=== PATIENT | male | born 1970 | race Caucasian/White ===

== ENCOUNTER → 2017-04-19 | Outpatient (CLI) | payer OTHER ==
[~2017-04-19] MED LIST: ASPI325T39 PO; FLM4 PO
--- NOTE | 2017-04-19 14:21 | DIAGNOSTIC IMAGING REPORT ---
ULTRASOUND RIGHT LOWER EXTREMITY VENOUS CLINICAL HISTORY: Right leg pain and swelling. COMPARISON STUDY: No priors. TECHNIQUE: Real-time, grayscale, and color Doppler sonography of the deep veins of the right lower extremity was performed from the inguinal crease to the calf. Compression and augmentation were utilized. FINDINGS: There is no sonographic evidence of deep venous thrombosis identified in the right lower extremity. The common femoral, superficial femoral, and popliteal veins are patent and normally compressible. The greater saphenous vein and the profunda femoris vein at the junction with the common femoral vein are clear. The visualized calf veins are patent. Soft tissue edema is noted in the right calf. IMPRESSION: 1. There is no sonographic evidence of deep venous thrombosis identified in the right lower extremity. 2. Soft tissue edema is noted in the right calf. Electronically signed by: Yong Le M.D. 04/19/2017 2:20 PM Dictated Date/Time: 04/19/2017 2:10 PM
== END | disposition home or self-care (01) ==
LOC: C.ULTR 13:36
PROVIDERS: ATTEND Internal Medicine
DX: R60.0 Localized edema (principal)

== ENCOUNTER 2019-09-02 12:56 | Inpatient (IN) ==
[2019-09-02] MEDS ORDERED: IBUPROFEN 600 MG TAB PO STA (13:58)
--- NOTE | 2019-09-02 14:05 | Emergency Department Note ---
Entered by Camryn Stern acting as a scribe for Ziyad Green MD ED Provider Note CHIEF COMPLAINT: SOB HISTORY OF PRESENT ILLNESS: The patient is a 49 year old male who presents to the Emergency Room with complaints of SOB, MUÑIZ, fever. This started 2 days ago and is worsening. He was traveling with family to [place] and his nephew was sick with bronchitis. The patient also notes the following associated symptoms, myalgias, cough, chest tightness, rhinorrhea, mild headache. The patient has Tylenol relieving factors. Current pain is rated as 2/10. Feels like previous pneumonia. Pt denies LOC, chills, diaphoresis, visual changes, neck pain, breathing difficulties, nausea, vomiting, abdominal pain, back pain, melena, hematochezia, urinary symptoms, numbness, weakness, lymphadenopathy, rash, or other complaints. REVIEW OF SYSTEMS: See HPI for pertinent positives and negatives. A total of ten systems were reviewed and were otherwise negative. PMHx/PSHx: Pneumonia SOCIAL HISTORY: Patient lives at home. , employed. PHYSICAL EXAM: GENERAL: Awake, alert, mildly ill-appearing, in no distress HENT: Normocephalic, atraumatic. Oropharynx unremarkable. EYES: PERRL. Normal conjunctiva. Sclera non-icteric. NECK: Inspection normal. Non-tender. Supple. No nuchal rigidity. FROM. No masses. RESPIRATORY: Mild wheeze on the right. No rales. Normal respiratory effort. CARDIAC: Tachycardic rate. Normal rhythm. No murmurs. No rubs. Extremities warm and well perfused. Pulses equal. No JVD. GI: Soft, non-distended. No tenderness to palpation. No rebound or guarding. No masses. RECTAL: Deferred. MUSCULOSKELETAL: Atraumatic. Chest examination reveals no tenderness. The back is symmetrical on inspection without obvious abnormality. There is no CVA tenderness to palpation. No joint edema. LOWER EXTREMITIES: Calves are equal size bilaterally and non-tender. No edema. No discoloration. NEURO: Normal sensorium. No sensory or motor deficits noted. SKIN: No rash or jaundice noted. EMERGENCY DEPARTMENT COURSE: 1351: The patient was evaluated in room B8, and a complete history and physical examination were performed. 1530: I had a long discussion with the patient. The patient informed me that he drank a moderate amount of alcohol, this weekend, on Sunday and Sunday. 1533: I reviewed the patient's case with Dr. Lee, [facility] Hospitalist. She will evaluate the patient for further management. MEDICAL DECISION MAKING: Continuous Cardiac Monitoring: An order was placed for continuous cardiac monitoring. The monitor shows a rate of 104 with an A Fib w/ RVR rhythm. B8 Prior records/ancillary studies reviewed. Triage Nursing notes reviewed and agree them. Additional history obtained from the patient's . The patient's history was concerning for fever and shortness of breath Differential diagnosis: Etiologies such as otitis, pharyngitis, pneumonia, influenza,meningitis, urinary tract infection, sepsis, bacteremia, viral syndrome, Covid- 19 as well as others were entertained. Physical examination: As above. The patient was not hypoxic though he was tachycardic. ER treatment provided: Oral Motrin On reassessment the patient was still feeling feverish. Repeat temperature indicated his fever increased. Oral Tylenol IV Lasix IV Lopressor Diagnostics interpreted by me: ECG: Consistent with new onset atrial fibrillation. The labs revealed an unremarkable CBC. Chemistry panel revealed no significant electrolyte issues. The patient's BNP is minimally elevated. Troponin negative. Flu testing negative. PCR flu testing pending. Imaging studies: Chest x-ray shows mild congestive change without infiltrate. Patient appears to have a febrile illness, bronchitis-like symptoms, and new onset A. fib. He did admit to drinking some alcohol this weekend which could contribute to the new onset A. fib. Flu testing was negative. Chest x-ray did not show pneumonia. Given the constellation of symptoms with the rapid A. fib and fever further management in the hospital is necessary. Consultation: A consultation was placed with internal medicine. The case was discussed and diagnostics were reviewed. The patient was evaluated in the ER for further treatment. We did discuss the patient's travel history and fever. He has no obvious contact with coronavirus patients. He is currently isolated. IMPRESSION: new onset A Fib, SOB PLAN: Admitted as inpatient. The scribe's documentation has been prepared under my direction and personally reviewed by me in its entirety. I confirm that the note above accurately reflects all work, treatment, procedures, and medical decision making performed by me. Impression & Plan New onset a-fib, SOB (shortness of breath) Past Med/Surg History Social History (Updated 07/14/19 @ 17:03 by Ximena Rodriguez) Preferred Language: [place] Communication Ability: Effective Visual Impairment: No Limitations Hearing Ability: Normal Field Professional Required: No Beliefs That Will Affect Care: None marital status: Current Living Situation: Alone current occupational status: employed Other Information That Helps Us Care for You: No Feels Safe at Home: Yes Safety Concerns: Feels Safe At This Time Smoking Status: Never smoker Hx Alcohol Use: Yes Alcohol type: beer and hard liquor Hx Substance Use: No Childhood Exposure to Second-Hand Smoke: Yes Dental Care, Regularly: Yes Physical Activity Frequency: 1-2 Times per Week Seatbelt Use: always Sunscreen Use: Yes Results & Data Vital Signs Vital Signs - 24 hr 09/02/19 13:01 09/02/19 14:13 09/02/19 14:50 Temperature 37.9 C H Temperature Source Oral Pulse Rate 118 H Pulse Rate [Finger] 104 H Respiratory Rate 22 22 Respiratory Effort / Characteristics Spontaneous Respiratory Depth Normal Blood Pressure 172/112 H Blood Pressure [Right Arm] 127/94 Blood Pressure Mean 132 Blood Pressure Mean [Right Arm] 105 Pulse Oximetry 93 93 94 Oxygen Delivery Method Room Air Room Air Other Room Air Sepsis Recent Fever Within 48 Hours No Sepsis Action Taken by Nursing No Action Required 09/02/19 14:55 09/02/19 15:17 09/02/19 15:30 Temperature Temperature Source Pulse Rate 115 H 112 H 116 H Pulse Rate [Finger] Respiratory Rate 23 21 15 Respiratory Effort / Characteristics Respiratory Depth Blood Pressure 127/94 Blood Pressure [Right Arm] Blood Pressure Mean 109 Blood Pressure Mean [Right Arm] Pulse Oximetry Oxygen Delivery Method Sepsis Recent Fever Within 48 Hours Sepsis Action Taken by Nursing 09/02/19 15:56 09/02/19 16:00 09/02/19 16:30 Temperature 38.5 C H Temperature Source Oral Pulse Rate 105 H 104 H Pulse Rate [Finger] Respiratory Rate 23 18 Respiratory Effort / Characteristics Respiratory Depth Blood Pressure Blood Pressure [Right Arm] Blood Pressure Mean Blood Pressure Mean [Right Arm] Pulse Oximetry Oxygen Delivery Method Sepsis Recent Fever Within 48 Hours Sepsis Action Taken by Nursing 09/02/19 17:30 Temperature Temperature Source Pulse Rate Pulse Rate [Finger] 110 H Respiratory Rate 24 Respiratory Effort / Characteristics Respiratory Depth Blood Pressure Blood Pressure [Right Arm] 157/88 H Blood Pressure Mean Blood Pressure Mean [Right Arm] 111 Pulse Oximetry 92 Oxygen Delivery Method Room Air Sepsis Recent Fever Within 48 Hours Sepsis Action Taken by Retirement Medications Current Medication List: was personally reviewed by me Laboratory Data Attestation: I reviewed the patient's lab results. Result diagrams: 09/02/19 14:15 09/02/19 14:15 Lab Results 09/02/19 09/02/19 09/02/19 Range/Units 14:15 14:15 14:15 WBC 6.11 (4.8-10.8) K/uL RBC 4.42 L (4.7-6.1) M/uL Hgb 14.1 (14.0-18.0) g/dL Hct 42.2 (42-52) % MCV 95.5 (80-100) fL MCH 31.9 (25-34) pg MCHC 33.4 (32-36) g/dL RDW Std Deviation 47.5 H (36.4-46.3) fL RDW Coeff of Romario 13.6 (11.5-14.5) % Plt Count 207 (130-400) K/uL MPV 10.1 (7.4-10.4) fL Immature Gran % (Auto) 0.2 % Neut % (Auto) 81.6 % Lymph % (Auto) 11.1 % Davie % (Auto) 6.4 % Eos % (Auto) 0.2 % Baso % (Auto) 0.5 % Immature Gran # (Auto) 0.01 (0.00-0.02) K/uL Neut # (Auto) 4.99 (1.4-6.5) K/uL Lymph # (Auto) 0.68 L (1.2-3.4) K/uL Davie # (Auto) 0.39 (0.11-0.59) K/uL Eos # (Auto) 0.01 (0-0.5) K/uL Baso # (Auto) 0.03 (0-0.2) K/uL PT (9.0-12.0) Seconds INR (0.9-1.1) APTT (21.0-31.0) Seconds PTT Ratio Sodium 136 (136-145) mmol/L Potassium 3.9 (3.5-5.1) mmol/L Chloride 103 (98-107) mmol/L Carbon Dioxide 28 (21-32) mmol/L Anion Gap 5.0 (3-11) BUN 13 (7-18) mg/dl Creatinine 1.04 (0.6-1.4) mg/dl Est Cr Clr Drug Dosing Not Reportable Est GFR ( Amer) 95.9 Est GFR (Non-Af Amer) 82.7 BUN/Creatinine Ratio 12.5 (10-20) Glucose 107 H (70-99) mg/dl Lactate (0.4-2.0) mmol/L Calcium 8.5 (8.5-10.1) mg/dl Magnesium 1.8 (1.8-2.4) mg/dl Total Bilirubin 1.0 (0.2-1) mg/dl AST 32 (15-37) U/L ALT 60 (12-78) U/L Alkaline Phosphatase 71 (45-117) U/L Lactate Dehydrogenase (87-241) U/L Troponin I < 0.015 (0-0.045) ng/ml NT-Pro-B Natriuret Pep 1337 H (0-900) pg/ml Total Protein 7.8 (6.4-8.2) gm/dl Albumin 3.5 (3.4-5.0) gm/dl Globulin 4.3 H (2.5-4.0) gm/dl Albumin/Globulin Ratio 0.8 L (0.9-2) Influenza Type A Ag Neg for Influ A (Neg) Influenza Type B Ag Neg for Influ B (Neg) 09/02/19 09/02/19 09/02/19 Range/Units 14:15 14:15 17:03 WBC (4.8-10.8) K/uL RBC (4.7-6.1) M/uL Hgb (14.0-18.0) g/dL Hct (42-52) % MCV (80-100) fL MCH (25-34) pg MCHC (32-36) g/dL RDW Std Deviation (36.4-46.3) fL RDW Coeff of Romario (11.5-14.5) % Plt Count (130-400) K/uL MPV (7.4-10.4) fL Immature Gran % (Auto) % Neut % (Auto) % Lymph % (Auto) % Davie % (Auto) % Eos % (Auto) % Baso % (Auto) % Immature Gran # (Auto) (0.00-0.02) K/uL Neut # (Auto) (1.4-6.5) K/uL Lymph # (Auto) (1.2-3.4) K/uL [place]ie # (Auto) (0.11-0.59) K/uL Eos # (Auto) (0-0.5) K/uL Baso # (Auto) (0-0.2) K/uL PT 11.4 (9.0-12.0) Seconds INR 1.1 (0.9-1.1) APTT 29.1 (21.0-31.0) Seconds PTT Ratio 1.0 Sodium (136-145) mmol/L Potassium (3.5-5.1) mmol/L Chloride (98-107) mmol/L Carbon Dioxide (21-32) mmol/L Anion Gap (3-11) BUN (7-18) mg/dl Creatinine (0.6-1.4) mg/dl Est Cr Clr Drug Dosing Est GFR ( Amer) Est GFR (Non-Af Amer) BUN/Creatinine Ratio (10-20) Glucose (70-99) mg/dl Lactate 1.5 (0.4-2.0) mmol/L Calcium (8.5-10.1) mg/dl Magnesium (1.8-2.4) mg/dl Total Bilirubin (0.2-1) mg/dl AST (15-37) U/L ALT (12-78) U/L Alkaline Phosphatase (45-117) U/L Lactate Dehydrogenase 202 (87-241) U/L Troponin I (0-0.045) ng/ml NT-Pro-B Natriuret Pep (0-900) pg/ml Total Protein (6.4-8.2) gm/dl Albumin (3.4-5.0) gm/dl Globulin (2.5-4.0) gm/dl Albumin/Globulin Ratio (0.9-2) Influenza Type A Ag (Neg) Influenza Type B Ag (Neg) Administered Medications Ipratropium Melba (Atrovent 0.02% 0.5mg/2.5ml) 0.5 mg INH Q6R [facility] Stop: 10/02/19 18:59 Last Admin: 09/02/19 20:16 Dose: 0.5 mg Documented by: [id number] Levalbuterol HCl (Xopenex 0.63 Mg/3 Ml Neb) 0.63 mg NEB Q6R [facility] Stop: 10/02/19 18:59 Last Admin: 09/02/19 20:16 Dose: 0.63 mg Documented by: [id number] Discontinued Medications Acetaminophen (Tylenol) 1,000 mg PO NOW STA Stop: 09/02/19 15:28 Last Admin: 09/02/19 15:47 Dose: 1,000 mg Documented by: [id number] Furosemide (Lasix) 20 mg IV NOW STA Stop: 09/02/19 15:30 Last Admin: 09/02/19 15:47 Dose: 20 mg Documented by: [id number] Ibuprofen (Motrin) 600 mg PO NOW STA Stop: 09/02/19 13:59 Last Admin: 09/02/19 14:57 Dose: 600 mg Documented by: [id number] Ioversol (Optiray 320 125ml) 120 ml IV ONCE PRN PRN Reason: Interaction Checking Stop: 09/06/19 16:54 Last Admin: 09/02/19 16:55 Dose: 120 ml Documented by: [id number] Metoprolol Tartrate (Lopressor) 2.5 mg IV NOW STA Stop: 09/02/19 15:28 Last Admin: 09/02/19 15:47 Dose: 2.5 mg Documented by: [id number] Imaging Data Radiologist's Impression: Radiology results as stated below per my review and the radiologist's interpretation: XR chest 1V portable CLINICAL HISTORY: FEVER dyspnea COMPARISON STUDY: 03/07/2006 FINDINGS: Moderate cardiomegaly. Increased prominence of pulmonary vasculature. Diaphragms are smooth. IMPRESSION: Moderate cardiomegaly. Pulmonary vascular congestion versus mild congestive failure ACT 112: Negative or not required by law. The above report was generated using voice recognition software. It may contain grammatical, syntax or spelling errors. Electronically signed by: Deangelo Fang M.D. 09/02/2019 2:30 PM ECG Data Attestation: I personally reviewed and interpreted this ECG as follows: Indication: + SOB/dyspnea Rate (beats per minute): 107 Rhythm: atrial fibrillation (w/ RVR) ECG Intervals/blocks: + Incomplete right bundle branch block and + Normal QRS ECG [place]: + Normal ECG ST segments: no ST depression and no ST elevation Blood Pressure Blood Pressure Findings: Elevated blood pressure Blood Pressure Disposition: further management by hospitalist Discharge Plan Visit Data *Final* Discharge Date/Time: 09/02/19 18:32 Chief Complaint: Shortness of Breath/Dyspnea Stated Complaint: SOB, FEVER ED Provider: Ziyad Green Discharge Problem: New onset a-fib, SOB (shortness of breath) Patient Disposition: Admitted As Inpatient Discharge Instructions Interventions: ED Discharge Assessment Last Done: 09/02/19 18:32 The scribe's documentation has been prepared under my direction and personally reviewed by me in its entirety. I confirm that the note above accurately reflects all work, treatment, procedures, and medical decision making performed by me.
[2019-09-02 14:24] LABS: Basophils # (auto) 0.03 K/uL (0-0.2); Basophils % (auto) 0.5 %; Eosinophils # (auto) 0.01 K/uL (0-0.5); Eosinophils % (auto) 0.2 %; Hematocrit (blood only) 42.2 % (42-52); Hemoglobin 14.1 g/dL (14.0-18.0); Immature Granulocytes # (auto) 0.01 K/uL (0.00-0.02); Immature Granulocytes % (auto) 0.2 %; Lymphocytes # (auto) 0.68 K/uL (1.2-3.4); Lymphocytes % (auto) 11.1 %; Mean Corpuscular Hemoglobin 31.9 pg (25-34); Mean Corpuscular Hgb Conc 33.4 g/dL (32-36); Mean Corpuscular Volume 95.5 fL (80-100); Mean Platelet Volume 10.1 fL (7.4-10.4); Monocytes # (auto) 0.39 K/uL (0.11-0.59); Monocytes % (auto) 6.4 %; Neutrophils # (auto) 4.99 K/uL (1.4-6.5); Neutrophils % (auto) 81.6 %; Platelet Count 207 K/uL (130-400); RDW Coefficient of Variation 13.6 % (11.5-14.5); RDW Standard Deviation 47.5 fL (36.4-46.3); Red Blood Count 4.42 M/uL (4.7-6.1); White Blood Count 6.11 K/uL (4.8-10.8)
--- NOTE | 2019-09-02 14:31 | XRay Report ---
XR chest 1V portable CLINICAL HISTORY: FEVER dyspnea COMPARISON STUDY: 03/07/2006 FINDINGS: Moderate cardiomegaly. Increased prominence of pulmonary vasculature. Diaphragms are smooth . IMPRESSION: Moderate cardiomegaly. Pulmonary vascular congestion versus mild congestive failure ACT 112: Negative or not required by law. The above report was generated using voice recognition software. It may contain grammatical, syntax or spelling errors. Electronically signed by: Deangelo Fang M.D. 09/02/2019 2:30 PM
[2019-09-02 14:41] LABS: Alanine Aminotransferase 60 U/L (12-78); Albumin Level 3.5 gm/dl (3.4-5.0); Aspartate Aminotransferase 32 U/L (15-37); BUN Creatinine Ratio 12.5 (10-20); Blood Urea Nitrogen 13 mg/dl (7-18); Calcium 8.5 mg/dl (8.5-10.1); Carbon Dioxide 28 mmol/L (21-32); Chloride 103 mmol/L (98-107); Est GFR (African American) 95.9; Est GFR (Non-African American) 82.7; Glucose 107 mg/dl (70-99); Potassium 3.9 mmol/L (3.5-5.1); Sodium 136 mmol/L (136-145)
[2019-09-02 14:46] LABS: Albumin Globulin Ratio 0.8 (0.9-2); Alkaline Phosphatase 71 U/L (45-117); Globulin 4.3 gm/dl (2.5-4.0); Total Protein 7.8 gm/dl (6.4-8.2); Troponin I < 0.015 ng/ml (0-0.045)
[2019-09-02 15:20] LABS: NT Pro B Type Natriuretic Pept 1337 pg/ml (0-900)
[2019-09-02] MEDS ORDERED: ACETAMINOPHEN 500 MG TAB PO STA (15:27)
[2019-09-02] MEDS ORDERED: METOPROLOL TARTRATE 1 MG/ML VIAL IV STA (15:27)
[2019-09-02] MEDS ORDERED: FUROSEMIDE 40 MG/4 ML VIAL IV STA ×2 (15:29→18:59)
[2019-09-02 15:39] LABS: Magnesium 1.8 mg/dl (1.8-2.4)
--- NOTE | 2019-09-02 15:39 | Electrocardiogram Report ---
Test Reason : Blood Pressure : / mmHG Vent. Rate : 107 BPM Atrial Rate : 117 BPM P-R Int : 000 ms QRS Dur : 094 ms QT Int : 332 ms P-R-T Axes : 000 038 015 degrees QTc Int : 443 ms Atrial fibrillation with rapid ventricular response Incomplete right bundle branch block Abnormal ECG When compared with ECG of 27-APR-1993 03:53, Atrial fibrillation has replaced Sinus rhythm Incomplete right bundle branch block is now Present Confirmed by Fran Santo ([id number]) on 09/02/2019 3:38:54 PM Referred By: REFERRED SELF Confirmed By:Fran Santo
[2019-09-02] MEDS ORDERED: OPTIRAY 320 125ml IV PRN (16:55)
[2019-09-02 16:58] LABS: INR 1.1 (0.9-1.1); Partial Thromboplastin Time 29.1 Seconds (21.0-31.0); Prothrombin Time 11.4 Seconds (9.0-12.0)
--- NOTE | 2019-09-02 17:08 | CT Scan Report ---
CT angio chest PE protocol CLINICAL HISTORY: 49 years-old Male presenting with shortness of breath, flulike symptoms. TECHNIQUE: Multidetector CT angiography of the chest was performed after administration of intravenou s contrast. 3-D volumetric and/or maximum intensity projection (MIP) images were subsequently reconst ructed for review. IV contrast: 120 mL of Optiray 320. One or more dose lowering techniques were used consistent with the principles of ALARA (as low as reasonably achievable), including automatic expos ure control, mA or kV adjustment to individual patient size, and/or use of iterative reconstruction. COMPARISON: None. CT DOSE (mGy.cm): The estimated cumulative dose is 1144.28 mGy.cm. FINDINGS: Clinical Lab Assistant topogram: Chest x-ray performed earlier today. Image quality is mildly degraded by patient body habitus limiting diagnostic sensitivity to a mild de gree. Pulmonary vasculature: The study is suboptimal for the assessment of the pulmonary vascular tree secondary to respiratory mo tion artifact. Allowing for limited image quality, no central filling defect to suggest pulmonary emb olus. Main pulmonary artery mildly enlarged measuring 3.5 cm in diameter. No flattening of the interv entricular septum. No intracardiac filling defect. No reflux of contrast into the hepatic veins. Remaining chest: Soft tissues: Normal thyroid. Fluffy appearing soft tissue density in the anterior mediastinum may moya ggest residual thymus. Scattered subcentimeter mediastinal lymph nodes, nonspecific and likely reacti ve. Normal aorta. Normal heart size. No pericardial or pleural effusion. Hepatic steatosis. Lungs and airways: No pneumothorax. Diffuse bronchial wall thickening. Peribronchovascular consolidat ion in the posterior segment of the right upper lobe. Limited scattered nodular groundglass opacities in other regions of the right upper lobe. Lesser degree of peribronchovascular consolidation in the medial basal right lower lobe. Respiratory motion artifact limits evaluation of the lung bases. Minim al bibasilar atelectasis suspected. Pulmonary arteries are not significantly enlarged relative to adj acent bronchi. No interlobular septal thickening. Musculoskeletal: Degenerative changes of the spine. IMPRESSION: 1. Allowing for suboptimal image quality, no evidence of pulmonary embolus. 2. Peribronchovascular consolidation in the right upper lobe and to lesser extent the right lower lo be. Findings favor multifocal pneumonia with an atypical infectious etiology. 3. Suspected residual comment thymic tissue. Thymic hyperplasia not excluded. ACT 112: Negative or not required by law. Electronically signed by: Caden Diaz M.D. 09/02/2019 5:06 PM
[2019-09-02] MEDS ORDERED: ALUMINUM/MAGNESIUM SUSP 30 ML UDC PO PRN (18:59)
[2019-09-02] MEDS ORDERED: POLYETHYLENE (MIRALAX) 17 GM PACK PO PRN (18:59)
[2019-09-02] MEDS ORDERED: MAGNESIUM HYDROXIDE SUSP 30 ML UDC PO PRN (18:59)
[2019-09-02] MEDS ORDERED: GUAIFENESIN/CODEINE 200MG/20MG 10ML UDC PO PRN (18:59)
[2019-09-02] MEDS ORDERED: [UNRECOGNIZED DRUG - OTHER] PO SCH (18:59)
[2019-09-02] MEDS ORDERED: XOPENEX/ATROVENT 0.63mg/0.5MG NEB COMBO NEB SCH (19:00)
[2019-09-02] MEDS ORDERED: PATIENT'S WEIGHT NEEDED SCH (20:00)
[2019-09-02] MEDS: IPRATROPIUM BROMIDE NEB SOLN 0.02% 2.5 ML VIAL INH SCH (20:16)
[2019-09-02] MEDS: LEVALBUTEROL HCL 0.63 MG/3 ML NEB NEB SCH (20:16)
[2019-09-02] MEDS: DOXYCYCLINE HYCLATE 100 MG in DEXTROSE 5% 100 ML IV SCH (20:50)
[2019-09-02] MEDS: cefTRIAXone SODIUM 2,000 MG in DEXTROSE 5% 50 ML IV SCH (20:50)
[2019-09-02] MEDS ORDERED: ENOXAPARIN INJ 40 MG/0.4 ML SYR SQ SCH (21:00)
--- NOTE | 2019-09-02 21:34 | History & Physical Report ---
Date of Service September 02, 2019 Assessment & Plan (1) Pneumonia: Admit to PCU on telemetry, Vital signs every 4 hours, Monitor electrolytes and replenish, Procalcitonin pending, Started empirically ceftriaxone 2 g IV and doxycycline 100 mg IV twice daily for presumptive bacterial pneumonia, Blood culture pending, If more sets suspected that viral pneumonia is probable culprit would stop antibiotics and continue symptomatic relief. Ashvin was seen 10 mils p.o. every 6 hours as needed, Ipratropium/Xopenex inh every 6 hours, DVT prophylaxis Lovenox-patient was started on Lovenox for A. fib's 40 mg subcu twice daily. Monitor PTT, switched to oral anticoagulation in a.m. depending on patient weight Full code Present on Admission?: Yes (2) New onset a-fib: New onset of A. fib's with RVR, rate controlled. Given metoprolol in the ER and continued metoprolol tartrate 25 mg twice daily. Eventually will switch to metoprolol succinate. TTE pending Consult cardiology, Switch to Lovenox 40 mg subacute twice daily to oral anticoagulation depending on patient weight. Present on Admission?: Yes (3) Morbid obesity: Patient advised to lose weight, engage in life style changes, control eating habits and exercises. Present on Admission?: Yes (4) Obstructive sleep apnea hypopnea, severe: Patient has CPAP at home which is on automatic setting. Setting while in the hospital will start with 15 and RR 10-12, and further manage per respiratory therapy Present on Admission?: Yes (5) Hypertension: Patient had poorly controlled blood pressure in the ER, could be because he was taking at home Tylenol Cold for severe flu which may increase blood pressure. Started hydralazine 10 mg p.o. 4 times daily as needed for elevated blood pressure systolic over 160 and diastolic over 90. Present on Admission?: Yes (6) Volume overload: Patient is morbidly obese and has lower extremity edema. He could be in congestive heart failure but so far he was not diagnosed with it. We will know more tomorrow after we receive the results of TTE Started Lasix 40 mg IV daily. Would titrate Lasix to possibly twice daily. Desirable net negative output would be 1 L Low-sodium diet Strict in and out Daily weight Present on Admission?: Yes History of Present Illness Chief Complaint: flu like symproms, cough Primary Care Provider: Gildardo Tran MD The patient is a 49 years old male with past medical history of hypertension, obstructive sleep apnea who presents to the emergency room with a complaint of shortness of breath, fever, and cough which started 2 days ago and it is worsening. Patient was traveling with family to [facility] and his nephew was sick with bronchitis. The patient also noted myalgia, cough, chest tightness, rhinorrhea and mild headache. The patient used some Tylenol to relieve his symptoms. Patient denies chest pain, headache,, abdominal pain, neck pain,, nausea, vomiting, abdominal pain, back pain, melena, hematochezia, urinary symptoms, numbness, weakness, lymphadenopathy, rash.The labs are reviewed: WBC is 6.11, hemoglobin 14.1, hematocrit 42.2, platelets 207, PT 11.4, INR 1.1, APTT 29.1, sodium 136, potassium 3.9, chloride 103, carbon dioxide 28, anion gap 5, BUN 13, creatinine 1.04, GFR 82.7, glucose 107, lactate 1.5, calcium 8.5, magnesium 1.8, total bilirubin 1, AST 32, ALT 60, alkaline phosphatase 71, lactate dehydrogenase 202, troponin I 0.015, BNP 1337, total protein 7.8, albumin 3.5, globulin 4.3, albumin globulin ratio 0.8, procalci tonin pending Influenza A negative, influenza B negative. Blood cultures pending. CTA of the chest: There is no evidence of pulmonary embolus. Peribronchovascular consolidation in the right upper lobe and to lesser extent in the right lower lobe. Findings favor multifocal pneumonia with an atypical infectious etiology. Suspected residual thymic tissue. EKG shows atrial fibrillation with rapid ventricular response. Incomplete right bundle branch block. The EKG is compared to April 27, 1993 when EKG shows sinus rhythm. Incomplete right bundle branch block was not present at that time. The decision was made to admit patient to PCU on telemetry for cough, pneumonia, shortness of breath and new onset of paroxysmal atrial fibrillation with RVR. Allergies Allergy/AdvReac Type Severity Reaction Status Date / Time No Known Drug Allergies Allergy Verified 09/02/19 14:33 Home Medications Home Medications Medication Instructions Recorded Confirmed Type amlodipine 5 mg tablet 5 mg PO QAM #30 tab 12/16/18 09/02/19 History fizaqvzac-WH-iwmxbjme-guaifen 15 ml PO UD 09/02/19 09/02/19 History [Tylenol Cold and Flu Severe] Past Med/Surg History Medical History Pneumonia (Resolved) Surgical History History of tonsillectomy (Resolved) Family History Unknown Kidney stones Uncle Diabetes Sister Kidney stones Denies family history of Ovarian cancer Prostate cancer Myocardial infarction Breast cancer Colorectal cancer Social History Preferred Language: Turkish Communication Ability: Effective Visual Impairment: No Limitations 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 Beliefs That Will Affect Care: None marital status: Current Living Situation: Alone current occupational status: employed Other Information That Helps Us Care for You: No Feels Safe at Home: Yes Safety Concerns: Feels Safe At This Time Smoking Status: Never smoker Hx Alcohol Use: Yes Alcohol type: beer and hard liquor Hx Substance Use: No Childhood Exposure to Second-Hand Smoke: Yes Dental Care, Regularly: Yes Physical Activity Frequency: 1-2 Times per Week Seatbelt Use: always Sunscreen Use: Yes Review of Systems Review of Systems: All systems reviewed & are unremarkable except as noted in HPI & below Physical Exam Constitutional: WD/WN, vitals as above well developed and + morbidly obese Eyes: PERRL, conjunctivae normal, anicteric sclerae ENMT: external ear and nose normal, oropharynx normal Neck: trachea midline, no thyromegaly Respiratory: + respiratory distress, + labored breathing and + uses accessory muscles Auscultation: + crackles, + wheezes and + bronchovesicular breath sounds Cardiovascular: Rate/Rhythm: + irregularly irregular Heart Sounds: normal S1 and normal S2 Palpation: + palpable S3 Vessels: + JVD and dorsalis pedis pulses present Extremities: + pedal edema Gastrointestinal (Abdomen): normal bowel sounds, soft, nontender, no hepatosplenomegaly Musculoskeletal: no cyanosis or clubbing, extremities motor strength 5/5 Skin: no rashes, warm and dry Neurologic: patellar DTR's 2+ bilat, sensation intact Psychiatric: A+Ox3, euthymic affect Lymphatic: no cervical or axillary lymphadenopathy Results & Data Vital Signs (Past 12 Hours) Vital Signs Temp Pulse Pulse Resp BP BP Pulse Ox 09/02/19 20:19 103 H 16 96 09/02/19 20:02 36.6 C 103 H 19 175/124 H 94 09/02/19 19:12 37.2 C 104 H 18 157/112 H 93 09/02/19 18:32 106 H 18 146/89 H 98 09/02/19 18:23 37.3 C 09/02/19 17:30 110 H 24 157/88 H 92 09/02/19 16:30 104 H 18 09/02/19 16:00 105 H 23 09/02/19 15:56 38.5 C H 09/02/19 15:30 116 H 15 09/02/19 15:17 112 H 21 09/02/19 14:55 115 H 23 127/94 09/02/19 14:50 104 H 22 127/94 94 09/02/19 14:13 93 09/02/19 13:01 37.9 C H 118 H 22 172/112 H 93 Code Status & VTE Plan Code Status Full code VTE Prophylaxis Plan VTE Prophylaxis will be ordered: Yes PG Care Time/CCT Total # of Minutes Spent Total Time Spent with Patient: Total time spent is greater than 50% in coordination of care (as documented) at patient's floor/unit and/or counseling patient: Coding Level of Care Code 61039 Initial Inpt Care Lvl 3 Diagnoses Pneumonia J18.9 New onset a-fib I48.91 Morbid obesity E66.01 Obstructive sleep apnea hypopnea, severe G47.33 Hypertension I10 Volume overload E87.70
[2019-09-02] MEDS: METOPROLOL TARTRATE 25 MG TAB PO SCH (21:43)
[2019-09-02] MEDS: HydrALAZINE 10 MG TAB PO PRN (21:43)
[2019-09-03] MEDS: IPRATROPIUM BROMIDE NEB SOLN 0.02% 2.5 ML VIAL INH SCH ×4 (00:50→19:42)
[2019-09-03] MEDS: LEVALBUTEROL HCL 0.63 MG/3 ML NEB NEB SCH ×4 (00:51→19:43)
[2019-09-03] MEDS ORDERED: PERFLUTREN LIPID MICROSPHERE (DEFINITY) IV ONE (07:06)
[2019-09-03 07:33] LABS: Basophils # (auto) 0.01 K/uL (0-0.2); Basophils % (auto) 0.2 %; Hematocrit (blood only) 42.5 % (42-52); Hemoglobin 14.1 g/dL (14.0-18.0); Lymphocytes # (auto) 0.49 K/uL (1.2-3.4); Lymphocytes % (auto) 9.4 %; Mean Corpuscular Hgb Conc 33.2 g/dL (32-36); Mean Corpuscular Volume 96.6 fL (80-100); Mean Platelet Volume 9.8 fL (7.4-10.4); Monocytes # (auto) 0.87 K/uL (0.11-0.59); Monocytes % (auto) 16.8 %; Neutrophils # (auto) 3.82 K/uL (1.4-6.5); Neutrophils % (auto) 73.6 %; Platelet Count 189 K/uL (130-400); RDW Standard Deviation 49.8 fL (36.4-46.3); White Blood Count 5.19 K/uL (4.8-10.8)
[2019-09-03] MEDS: FUROSEMIDE 40 MG in SYRINGE 0 ML IV SCH (07:51)
[2019-09-03] MEDS: DOXYCYCLINE HYCLATE 100 MG in DEXTROSE 5% 100 ML IV SCH ×2 (07:51→19:54)
[2019-09-03] MEDS: ACETAMINOPHEN 325 MG TAB PO PRN ×2 (07:51→16:30)
[2019-09-03] MEDS: HydrALAZINE 10 MG TAB PO PRN (07:52)
[2019-09-03] MEDS: ENOXAPARIN INJ 40 MG/0.4 ML SYR SQ SCH ×2 (07:52→20:00)
[2019-09-03] MEDS: AMLODIPINE BESYLATE 5 MG TAB PO SCH (07:52)
[2019-09-03] MEDS: METOPROLOL TARTRATE 25 MG TAB PO SCH (07:52)
[2019-09-03 08:16] LABS: Albumin Level 3.5 gm/dl (3.4-5.0); BUN Creatinine Ratio 15.7 (10-20); Calcium 8.3 mg/dl (8.5-10.1); Creatinine Clr Calc Pharmacy 156.9 ml/min; Est GFR (Non-African American) 83.7; Potassium 3.5 mmol/L (3.5-5.1)
[2019-09-03 08:18] LABS: Albumin Globulin Ratio 0.8 (0.9-2); Bilirubin,Total 0.9 mg/dl (0.2-1); Globulin 4.3 gm/dl (2.5-4.0); Total Protein 7.8 gm/dl (6.4-8.2)
[2019-09-03 09:02] LABS: Estimated Average Glucose 120 mg/dl; Hemoglobin A1C 5.8 % (4.5-5.6)
--- NOTE | 2019-09-03 10:07 | Cardiology Consultation ---
Date of Consultation September 03, 2019 Assessment & Plan (1) Atrial fibrillation with RVR: Mr. Lovell is a 49-year-old male with a history of Severe JANN and associated Nocturnal Hypoxemia, Hypertension, Hyperglycemia, Nephrolithiasis, and Morbid Obesity who was admitted to [facility] on 09/02/2019 with a multi-lobar pneumonia and newly diagnosed Atrial Fibrillation with RVR -- although we are uncertain when his A-Fib had its onset. Patient did have a sense of palpitations on Sunday when he became ill -- but he remains in atrial fibrillation with an elevated ventricular response rate and he denies any palpitations currently. Nonetheless, patient's [id number] is 2 based on his ? 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 And we also need to better rate control him for the time being. Patient will need to be Anticoagulated for a minimum of 3.5 to 4 weeks before any effort will be made to actively convert him back to a normal sinus rhythm. We had a long discussion with the patient today regarding what atrial fibrillation is, the natural history of atrial fibrillation, and various management strategies. He verbalized understanding of this discussion. Recommend the following: -- Check Echocardiogram. -- Increase Metoprolol Tartrate to 50 mg BID -- Continue Lovenox 40 IM BID while inpatient. -- Recommend Coumadin anticoagulation but could consider Eliquis 5 mg b.i.d.(although Eliquis was not studied in patients with a high BMI). Follow-up with [facility] in 1 month after discharge. Depending on heart rate, rhythm, and symptoms we may need to consider cardioversion at that time. (2) Hypertension: -- Continue current dose of Amlodipine 5mg daily. -- Increase Metoprolol Tartrate to 50 mg BID. (3) Obstructive sleep apnea hypopnea, severe: -- Continue using CPAP nightly. Supervising Physician Co-Signing Physician Notes Patient seen and examined. Case discussed with Kip. Agree with above. Anticoagulation since the duration of atrial fibrillation is unknown, probable cardioversion in the future. History of Present Illness Reason for Consultation: -- Newly Diagnosed Atrial Fibrillation with RVR. Requesting Physician: Rakesh Wade Attending Physician: Fran Santo MD History of Present Illness Mr. Lovell is a 49-year-old male with a history of Severe JANN and associated Nocturnal Hypoxemia, Hypertension, Hyperglycemia, Nephrolithiasis, and Morbid Obesity who was admitted to [facility]. Patient states that since Sunday he was experiencing increasing SOB, palpitations, and a new onset of a cough. He was also experiencing fever, chills, and body aches. Patient was concerned that he was developing pneumonia or the flu. He denied any associated CP, radiating back, jaw, or arm pain when his symptoms started. He states that he has been increasingly SOB for the past year, however has not been treated for this. He does use his CPAP nightly for his JANN. He states that he can walk about 2 to 3 blocks before he has to stop to rest. He also gets SOB while walking up a flight of stairs. He does not experience any leg pain while walking, however he does admit to occasional right leg swelling. Patient denies any angina symptoms. Patient denies any personal history of CAD, PE, DVT, or stroke. He denies any family history of CAD. Patient is only taking Amlodipine 5mg daily for his HTN. He does not check his BP on a daily basis, however he denies any recent headaches or visual changes. He denies a history of DM, however he has been hyperglycemic in the past. His current CHADsVas score is 2, and at this time long-term anticoagulation is recommended. He denies N/V/D, lightheadedness, dizziness, abdominal pain, or generalized weakness outside of normal. Allergies Allergy/AdvReac Type Severity Reaction Status Date / Time No Known Drug Allergies Allergy Verified 09/02/19 14:33 Home Medications Home Medications Medication Instructions Recorded Confirmed Type amlodipine 5 mg tablet 5 mg PO QAM #30 tab 12/16/18 09/02/19 History pcrwqmqpw-QC-wvbbjuns-guaifen 15 ml PO UD 09/02/19 09/02/19 History [Tylenol Cold and Flu Severe] Patient History Medical History Pneumonia (Resolved) Surgical History History of tonsillectomy (Resolved) Family History Unknown Kidney stones Uncle Diabetes Sister Kidney stones Denies family history of Ovarian cancer Prostate cancer Myocardial infarction Breast cancer Colorectal cancer Social History Preferred Language: Dominican Communication Ability: Effective Visual Impairment: No Limitations 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 HEENT: Head is atraumatic, normocephalic. EOM's intact. Facies symmetric. No perioral cyanosis. NECK: No JVD. Carotid upstrokes are + 2 bilaterally. No bruits are noted. CHEST/LUNGS: Scattered crackles in the right lung. CVS: S1 and S2 are irregularly irregular and distant at 105 bpm without obvious murmurs, gallops, or rubs. PMI is nonpalpable. No lifts, heaves, or thrills. No abdominal aortic or renal bruits. GI: Normal bowel sounds throughout, soft, and non-tender. No guarding, rebound, or peritoneal tenderness. No organomegaly. Extremities: No lower extremity pitting edema. No visible wounds, rashes, discoloration, or deformities. Pulses equal bilaterally. ECHOCARDIOGRAM is pending. TELEMETRY: -- Atrial fibrillation with rates of 100 to 130 bpm. EKG 09/02/2019: -- Atrial fibrillation with RVR and a new RBBB pattern. Results & Data ([facility]) Vital Signs (Past 12 Hours) Vital Signs Temp Pulse Pulse Resp BP Pulse Ox 09/03/19 09:27 105 H 09/03/19 08:00 37.9 C H 98 H 18 145/108 H 95 09/03/19 03:58 37.2 C 94 H 22 158/117 H 92 09/03/19 02:17 95 H 18 91 09/03/19 00:52 96 H 18 91 09/02/19 23:20 96 H 22 96 09/02/19 23:12 37.1 C 93 H 20 149/103 H 93 Laboratory Results Laboratory Results - last 24 hr 09/02/19 09/02/19 09/02/19 14:15 14:15 14:15 WBC 6.11 RBC 4.42 L Hgb 14.1 Hct 42.2 MCV 95.5 MCH 31.9 MCHC 33.4 RDW Std Deviation 47.5 H RDW Coeff of Romario 13.6 Plt Count 207 MPV 10.1 Immature Gran % (Auto) 0.2 Neut % (Auto) 81.6 Lymph % (Auto) 11.1 [place] % (Auto) 6.4 Eos % (Auto) 0.2 Baso % (Auto) 0.5 Immature Gran # (Auto) 0.01 Neut # (Auto) 4.99 Lymph # (Auto) 0.68 L [place] # (Auto) 0.39 Eos # (Auto) 0.01 Baso # (Auto) 0.03 PT INR APTT PTT Ratio Sodium 136 Potassium 3.9 Chloride 103 Carbon Dioxide 28 Anion Gap 5.0 BUN 13 Creatinine 1.04 Est Cr Clr Drug Dosing Not Reportable Est GFR ( Amer) 95.9 Est GFR (Non-Af Amer) 82.7 BUN/Creatinine Ratio 12.5 Glucose 107 H Estimat Average Glucose Hemoglobin A1c Lactate Calcium 8.5 Magnesium 1.8 Total Bilirubin 1.0 AST 32 ALT 60 Alkaline Phosphatase 71 Lactate Dehydrogenase Troponin I < 0.015 NT-Pro-B Natriuret Pep 1337 H Total Protein 7.8 Albumin 3.5 Globulin 4.3 H Albumin/Globulin Ratio 0.8 L Triglycerides Cholesterol LDL Cholesterol, Calc VLDL Cholesterol, Calc HDL Cholesterol Cholesterol/HDL Ratio Procalcitonin TSH Influenza Type A Ag Neg for Influ A Influenza Type B Ag Neg for Influ B 09/02/19 09/02/19 09/02/19 14:15 14:15 17:03 WBC RBC Hgb Hct MCV MCH MCHC RDW Std Deviation RDW Coeff of Romario Plt Count MPV Immature Gran % (Auto) Neut % (Auto) Lymph % (Auto) [place] % (Auto) Eos % (Auto) Baso % (Auto) Immature Gran # (Auto) Neut # (Auto) Lymph # (Auto) [place] # (Auto) Eos # (Auto) Baso # (Auto) PT 11.4 INR 1.1 APTT 29.1 PTT Ratio 1.0 Sodium Potassium Chloride Carbon Dioxide Anion Gap BUN Creatinine Est Cr Clr Drug Dosing Est GFR ( Amer) Est GFR (Non-Af Amer) BUN/Creatinine Ratio Glucose Estimat Average Glucose Hemoglobin A1c Lactate 1.5 Calcium Magnesium Total Bilirubin AST ALT Alkaline Phosphatase Lactate Dehydrogenase 202 Troponin I NT-Pro-B Natriuret Pep Total Protein Albumin Globulin Albumin/Globulin Ratio Triglycerides Cholesterol LDL Cholesterol, Calc VLDL Cholesterol, Calc HDL Cholesterol Cholesterol/HDL Ratio Procalcitonin TSH Influenza Type A Ag Influenza Type B Ag 09/02/19 09/02/19 09/03/19 19:08 22:17 07:25 WBC 5.19 RBC 4.40 L Hgb 14.1 Hct 42.5 MCV 96.6 MCH 32.0 MCHC 33.2 RDW Std Deviation 49.8 H RDW Coeff of Romario 14.0 Plt Count 189 MPV 9.8 Immature Gran % (Auto) 0.0 Neut % (Auto) 73.6 Lymph % (Auto) 9.4 [place] % (Auto) 16.8 Eos % (Auto) 0.0 Baso % (Auto) 0.2 Immature Gran # (Auto) 0.00 Neut # (Auto) 3.82 Lymph # (Auto) 0.49 L [place] # (Auto) 0.87 H Eos # (Auto) 0.00 Baso # (Auto) 0.01 PT INR APTT PTT Ratio Sodium Potassium Chloride Carbon Dioxide Anion Gap BUN Creatinine Est Cr Clr Drug Dosing Est GFR ( Amer) Est GFR (Non-Af Amer) BUN/Creatinine Ratio Glucose Estimat Average Glucose Hemoglobin A1c Lactate Calcium Magnesium Total Bilirubin AST ALT Alkaline Phosphatase Lactate Dehydrogenase Troponin I NT-Pro-B Natriuret Pep Total Protein Albumin Globulin Albumin/Globulin Ratio Triglycerides Cholesterol LDL Cholesterol, Calc VLDL Cholesterol, Calc HDL Cholesterol Cholesterol/HDL Ratio Procalcitonin 0.08 TSH 1.530 Influenza Type A Ag Influenza Type B Ag 09/03/19 09/03/19 07:25 07:25 WBC RBC Hgb Hct MCV MCH MCHC RDW Std Deviation RDW Coeff of Romario Plt Count MPV Immature Gran % (Auto) Neut % (Auto) Lymph % (Auto) [place] % (Auto) Eos % (Auto) Baso % (Auto) Immature Gran # (Auto) Neut # (Auto) Lymph # (Auto) [place] # (Auto) Eos # (Auto) Baso # (Auto) PT INR APTT PTT Ratio Sodium 136 Potassium 3.5 Chloride 101 Carbon Dioxide 29 Anion Gap 6.0 BUN 16 Creatinine 1.03 Est Cr Clr Drug Dosing 156.9 Est GFR ( Amer) 97.0 Est GFR (Non-Af Amer) 83.7 BUN/Creatinine Ratio 15.7 Glucose 113 H Estimat Average Glucose 120 Hemoglobin A1c 5.8 H Lactate Calcium 8.3 L Magnesium Total Bilirubin 0.9 AST 41 H ALT 66 Alkaline Phosphatase 68 Lactate Dehydrogenase Troponin I NT-Pro-B Natriuret Pep Total Protein 7.8 Albumin 3.5 Globulin 4.3 H Albumin/Globulin Ratio 0.8 L Triglycerides 76 Cholesterol 152 LDL Cholesterol, Calc 88 VLDL Cholesterol, Calc 15 HDL Cholesterol 49 Cholesterol/HDL Ratio 3 Procalcitonin TSH Influenza Type A Ag Influenza Type B Ag Diagnostic Findings CTA --No evidence of clots present. 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 Medications Administered Active Medications Generic Name Dose Route Start Last Admin Trade Name Freq PRN Reason Stop Dose Admin Acetaminophen 650 mg 09/02/19 18:59 09/03/19 07:51 Tylenol PO 10/02/19 18:58 650 mg Q4H PRN Administration Pain or Fever Al Hydrox/Mg Hydrox/Simethicone 15 ml 09/02/19 18:59 Maalox PO 10/02/19 18:58 Q4H PRN Dyspepsia Amlodipine Besylate 5 mg 09/03/19 09:00 09/03/19 07:52 Norvasc PO 10/03/19 08:59 5 mg QAM ALVINO Administration Enoxaparin Sodium 40 mg 09/03/19 09:00 09/03/19 07:52 Lovenox SQ 10/03/19 08:59 40 mg BID ALVINO Administration Guaifenesin/Codeine Phosphate 10 ml 09/02/19 18:59 Robitussin-Ac Sugar Free PO 10/02/19 18:58 Q6H PRN Cough Hydralazine HCl 10 mg 09/02/19 21:13 09/03/19 07:52 Apresoline PO 10/03/19 08:59 10 mg QID PRN Administration high blood pressure Ceftriaxone Sodium 2,000 mg/ 70 mls @ 100 mls/hr 09/02/19 20:00 09/02/19 22:30 Dextrose IV 09/09/19 19:59 Infused Q24H ALVINO Infusion Protocol Doxycycline Hyclate 100 mg/ 110 mls @ 50 mls/hr 09/02/19 21:00 09/03/19 09:57 Dextrose IV 09/09/19 20:59 Infused BID ALVINO Infusion Furosemide 40 mg/ Syringe 4 mls @ 4 mls/min 09/03/19 09:00 09/03/19 07:51 IV 10/03/19 08:59 4 mls/min DAILY ALVINO Administration Ipratropium [place] 0.5 mg 09/02/19 19:00 09/03/19 07:04 Atrovent 0.02% 0.5mg/2.5ml INH 10/02/19 18:59 Not Given Q6R ALVINO Levalbuterol HCl 0.63 mg 09/02/19 19:00 09/03/19 07:05 Xopenex 0.63 Mg/3 Ml Neb NEB 10/02/19 18:59 Not Given Q6R ALVINO Magnesium Hydroxide 30 ml 09/02/19 18:59 Milk Of Magnesia PO 10/02/19 18:58 Q12H PRN Constipation Metoprolol Tartrate 50 mg 09/03/19 21:00 Lopressor PO 10/03/19 20:59 BID ALVINO Metoprolol Tartrate 25 mg 09/03/19 10:15 Lopressor PO 09/03/19 10:16 ONE ONE Polyethylene Glycol 17 gm 09/02/19 18:59 Miralax Powder Packet PO 10/02/19 18:58 DAILY PRN Constipation PG Care Time/CCT Total # of Minutes Spent Total Time Spent with Patient: Total time spent is greater than 50% in coordination of care (as documented) at patient's floor/unit and/or counseling patient: Coding Level of Care Code 51239 Inpt Consult Level 4 Diagnoses Atrial fibrillation with RVR I48.91 Hypertension I10 Obstructive sleep apnea hypopnea, severe G47.33
[2019-09-03] MEDS ORDERED: METOPROLOL TARTRATE 25 MG TAB PO ONE (10:15)
--- NOTE | 2019-09-03 12:48 | XCELERA ---
[id number] \\[id number]
[2019-09-03] MEDS: cefTRIAXone SODIUM 2,000 MG in DEXTROSE 5% 50 ML IV SCH (19:54)
[2019-09-03] MEDS: METOPROLOL TARTRATE 50 MG TAB PO SCH (20:01)
--- NOTE | 2019-09-03 20:24 | Hospitalist Progress Note ---
Date of Service September 03, 2019 Assessment & Plan (1) Pneumonia: Admitted to PCU on telemetry, Concern over coronavirus given his recent travel and conference. Reviewed CT scan which shows groundglass opacities showing an atypical pneumonia Will check a BIOFIRE viral panel to assess for other causes of viral infection. Will place on contact precaution and airborne precaution. D/W nursing staff, dicussed with infection control. Informed patient. Will contiue antibiotics at this time. DVT prophylaxis Lovenox-patient was started on Lovenox for A. fib's 40 mg subcu twice daily. Monitor PTT depending on patient weight Full code (2) New onset a-fib: New onset of A. fib's with RVR, rate controlled. Increase metoprolol to 50 mg PO BID. Consult cardiology, Switch to Lovenox 40 mg subacute twice daily to oral anticoagulation depending on patient weight. may consider a NOAC, will discuss with pharmacy (3) Morbid obesity: Patient advised to lose weight, engage in life style changes, control eating habits and exercises. (4) Obstructive sleep apnea hypopnea, severe: Patient has CPAP at home which is on automatic setting. Setting while in the hospital will start with 15 and RR 10-12, and further manage per respiratory therapy (5) Hypertension: Patient had poorly controlled blood pressure in the ER, could be because he was taking at home Tylenol Cold for severe flu which may increase blood pressure. Started hydralazine 10 mg p.o. 4 times daily as needed for elevated blood pressure systolic over 160 and diastolic over 90. (6) Volume overload: Patient is morbidly obese and has lower extremity edema. He could be in congestive heart failure but so far he was not diagnosed with it. We will know more tomorrow after we receive the results of TTE Started Lasix 40 mg IV daily. Would titrate Lasix to possibly twice daily. Desirable net negative output would be 1 L Low-sodium diet Strict in and out Daily weight Admission and Anticipated Discharge Date Admission Date: September 02, 2019 Subjective Patient is a pleasant 49 yo male who reports having subjective fevers. He does reports feeling better than when he first came in. He states his cough has improved. He reports that he recently travelled to [facility] with his family and was there for a conference. He denies knowingly being with a sick contact except for a family member who had bronchitis. Review of Systems Review of Systems: All systems reviewed & are unremarkable except as noted in HPI & below Physical Exam Physical Exam: Constitutional: WD/WN, vitals as above well developed and + morbidly obese Eyes: PERRL, conjunctivae normal, anicteric sclerae ENMT: external ear and nose normal, oropharynx normal Neck: trachea midline, no thyromegaly Respiratory: no longer in respiratory distress. Cardiovascular: Rate/Rhythm: + irregularly irregular Heart Sounds: normal S1 and normal S2 Palpation: + palpable S3 Extremities: + pedal edema Gastrointestinal (Abdomen): normal bowel sounds, soft, nontender, no hepatosplenomegaly Musculoskeletal: no cyanosis or clubbing, extremities motor strength 5/5 Skin: no rashes, warm and dry Neurologic: patellar DTR's 2+ bilat, sensation intact Psychiatric: A+Ox3, euthymic affect Lymphatic: no cervical or axillary lymphadenopathy Results & Data ([facility]) Vital Signs (Past 12 Hours) Vital Signs Temp Pulse Pulse Resp BP Pulse Ox 09/03/19 20:14 37.5 C 93 H 16 179/108 H 93 09/03/19 19:43 90 18 97 09/03/19 15:31 37.3 C 104 H 18 143/94 H 95 09/03/19 13:33 80 20 94 09/03/19 11:40 37.7 C H 84 22 141/84 H 94 09/03/19 09:27 105 H PG Care Time/CCT Total # of Minutes Spent Total Time Spent with Patient: Total time spent is greater than 50% in coordination of care (as documented) at patient's floor/unit and/or counseling patient: Prolonged Care Time Prolonged Care Time: Yes Total Prolonged Care Time: 65 Coding Level of Care Code 58784 Subseq Hosp Care Lvl 3 Diagnoses Pneumonia J18.9 New onset a-fib I48.91 Morbid obesity E66.01 Obstructive sleep apnea hypopnea, severe G47.33 Hypertension I10 Volume overload E87.70 Additional Codes Prolonged Care Time - Prolonged Care Time: Yes ([id number]) Time Spent (min) 65 Comment . 8:20 to 8:45 9:10 to 9:30 9:40 to 10:00
[2019-09-04] MEDS: LEVALBUTEROL HCL 0.63 MG/3 ML NEB NEB SCH ×4 (00:40→19:08)
[2019-09-04] MEDS: IPRATROPIUM BROMIDE NEB SOLN 0.02% 2.5 ML VIAL INH SCH ×4 (00:40→19:08)
[2019-09-04 06:17] LABS: Basophils # (auto) 0.01 K/uL (0-0.2); Basophils % (auto) 0.2 %; Eosinophils # (auto) 0.01 K/uL (0-0.5); Eosinophils % (auto) 0.2 %; Hematocrit (blood only) 42.5 % (42-52); Hemoglobin 14.2 g/dL (14.0-18.0); Lymphocytes # (auto) 1.03 K/uL (1.2-3.4); Lymphocytes % (auto) 24.6 %; Mean Corpuscular Hgb Conc 33.4 g/dL (32-36); Mean Corpuscular Volume 95.7 fL (80-100); Mean Platelet Volume 9.7 fL (7.4-10.4); Monocytes # (auto) 0.64 K/uL (0.11-0.59); Monocytes % (auto) 15.3 %; Neutrophils # (auto) 2.49 K/uL (1.4-6.5); Neutrophils % (auto) 59.7 %; Platelet Count 185 K/uL (130-400); RDW Coefficient of Variation 13.9 % (11.5-14.5); RDW Standard Deviation 48.8 fL (36.4-46.3); Red Blood Count 4.44 M/uL (4.7-6.1); White Blood Count 4.18 K/uL (4.8-10.8)
[2019-09-04 06:50] LABS: Albumin Level 3.3 gm/dl (3.4-5.0); BUN Creatinine Ratio 14.1 (10-20); Calcium 8.5 mg/dl (8.5-10.1); Creatinine Clr Calc Pharmacy 150.9 ml/min; Est GFR (African American) 100.6; Est GFR (Non-African American) 86.8; Potassium 3.5 mmol/L (3.5-5.1)
[2019-09-04 06:53] LABS: Albumin Globulin Ratio 0.8 (0.9-2); Bilirubin,Total 0.8 mg/dl (0.2-1); Globulin 4.2 gm/dl (2.5-4.0); Total Protein 7.5 gm/dl (6.4-8.2)
[2019-09-04] MEDS: FUROSEMIDE 40 MG in SYRINGE 0 ML IV SCH (07:48)
[2019-09-04] MEDS: METOPROLOL TARTRATE 50 MG TAB PO SCH ×2 (07:48→20:27)
[2019-09-04] MEDS: ENOXAPARIN INJ 40 MG/0.4 ML SYR SQ SCH ×2 (07:49→20:28)
[2019-09-04] MEDS: AMLODIPINE BESYLATE 5 MG TAB PO SCH (07:50)
[2019-09-04] MEDS: DOXYCYCLINE HYCLATE 100 MG in DEXTROSE 5% 100 ML IV SCH ×2 (07:52→21:17)
[2019-09-04] MEDS ORDERED: OSELTAMIVIR PHOSPHATE 75 MG CAP PO ONE (10:30)
[2019-09-04] MEDS ORDERED: WARFARIN SOD 10 MG TAB PO ONE (10:33)
--- NOTE | 2019-09-04 14:49 | Cardiology Progress Note ---
Date of Service September 04, 2019 Assessment & Plan (1) Atrial fibrillation with RVR: He remains in atrial fibrillation, his heart rate is improved on his current medications. Is still little bit high but I think acceptable and I would leave him on his current AV marsha blockers. He should remain on anticoagulation. I will arrange follow-up in 3 to 4 weeks after discharge and if he remains in atrial fibrillation we can arrange cardioversion. This episode may be related to his current presentation but we cannot assume that. Admission and Anticipated Discharge Date Admission Date: September 02, 2019 Subjective He is feeling better, his heart rate is improved but he is really not very much aware of it. His breathing is improved. Physical Exam Physical Exam: Constitutional: Alert, cooperative and in no distress. HEENT: Unremarkable Neck: No jugular venous distention, carotid pulses are irregular but otherwise normal and equal bilaterally without bruits. Pulmonary: Clear to auscultation bilaterally. Cardiac: Irregular rhythm with no murmur, gallop or rub. Abdomen: Soft, nontender with normal bowel sounds. Extremities: No edema. Distal pulses intact. Neurologic: No focal findings. Gait is steady. Skin: No rash, ecchymoses or petechiae. Results & Data ([facility]) Vital Signs (Past 12 Hours) Vital Signs Temp Pulse Resp BP BP Pulse Ox 09/04/19 13:53 95 H 16 94 09/04/19 12:00 37.3 C 87 20 133/86 92 09/04/19 07:59 37.1 C 109 H 16 138/98 96 09/04/19 07:17 93 H 20 93 09/04/19 04:30 36.6 C 98 H 20 167/86 H 93 Laboratory Results Cardiac Enzymes 09/04/19 Range/Units 06:00 AST 49 H (15-37) U/L CBC 09/04/19 Range/Units 06:00 WBC 4.18 L (4.8-10.8) K/uL RBC 4.44 L (4.7-6.1) M/uL Hgb 14.2 (14.0-18.0) g/dL Hct 42.5 (42-52) % Plt Count 185 (130-400) K/uL Neut # (Auto) 2.49 (1.4-6.5) K/uL Lymph # (Auto) 1.03 L (1.2-3.4) K/uL [place] # (Auto) 0.64 H (0.11-0.59) K/uL Eos # (Auto) 0.01 (0-0.5) K/uL Baso # (Auto) 0.01 (0-0.2) K/uL Comprehensive Metabolic Panel 09/04/19 Range/Units 06:00 Sodium 137 (136-145) mmol/L Potassium 3.5 (3.5-5.1) mmol/L Chloride 102 (98-107) mmol/L Carbon Dioxide 30 (21-32) mmol/L BUN 14 (7-18) mg/dl Creatinine 1.00 (0.6-1.4) mg/dl Glucose 101 H (70-99) mg/dl Calcium 8.5 (8.5-10.1) mg/dl AST 49 H (15-37) U/L ALT 70 (12-78) U/L Alkaline Phosphatase 65 (45-117) U/L Total Protein 7.5 (6.4-8.2) gm/dl Albumin 3.3 L (3.4-5.0) gm/dl Intake and Output 09/03/19 09/04/19 09/04/19 22:59 06:59 14:59 Intake Total 960 / 3310 500 / 3310 710 / 710 Output Total 700 / 3700 1800 / 3700 Balance 260 / -390 -1300 / -390 710 / 710 Intake: IV 180 / 290 110 / 110 Vibramycin 100 mg In D5 100 ml 110 / 220 110 / 110 @ 50 mls/hr IV BID ALVINO Rx#: [id number] Rocephin 2,000 mg In D5w 50 ml 70 / 70 @ 100 mls/hr IV Q24H ALVINO Rx#: [id number] Oral 780 / 3020 500 / 3020 600 / 600 Output: Urine 700 / 3700 1800 / 3700 Other: Weight 195.6 kg Diagnostic Findings Telemetry: Atrial fibrillation, heart rate improved on beta-blockade. PG Care Time/CCT Total # of Minutes Spent Total Time Spent with Patient: Total time spent is greater than 50% in coordination of care (as documented) at patient's floor/unit and/or counseling patient: Coding Level of Care Code 48698 Subseq Hosp Care Lvl 2 Diagnoses Atrial fibrillation with RVR I48.91
[2019-09-04] MEDS: OSELTAMIVIR PHOSPHATE 75 MG CAP PO SCH (20:27)
[2019-09-04] MEDS: cefTRIAXone SODIUM 2,000 MG in DEXTROSE 5% 50 ML IV SCH (20:27)
--- NOTE | 2019-09-04 21:09 | Hospitalist Progress Note ---
Date of Service September 04, 2019 Assessment & Plan (1) Pneumonia: Admitted to PCU on telemetry, Concern over coronavirus given his recent travel and conference. However biofire was positive for influenza. Reviewed CT scan which shows groundglass opacities showing an atypical pneumonia Placed on droplet precautions and removed contact and airborne precautions. D/W nursing staff, dicussed with infection control. Informed patient. Placed on oseltamivir Patient will continue antibiotics but if procal is negative in AM, will stop. DVT prophylaxis Lovenox-patient was started on Lovenox for A. fib's 40 mg subcu twice daily. Full code (2) New onset a-fib: New onset of A. fib's with RVR, rate controlled. Increase metoprolol to 50 mg PO BID. Consult cardiology, Switch to Lovenox 40 mg subacute twice daily to oral anticoagulation depending on patient weight. due to weight, will place on warfarin as NOAC has not been studied. (3) Morbid obesity: Patient advised to lose weight, engage in life style changes, control eating habits and exercises. (4) Obstructive sleep apnea hypopnea, severe: Patient has CPAP at home which is on automatic setting. Setting while in the hospital will start with 15 and RR 10-12, and further manage per respiratory therapy (5) Hypertension: Patient had poorly controlled blood pressure in the ER, could be because he was taking at home Tylenol Cold for severe flu which may increase blood pressure. Started hydralazine 10 mg p.o. 4 times daily as needed for elevated blood pressure systolic over 160 and diastolic over 90. (6) Volume overload: Patient is morbidly obese and has lower extremity edema. He could be in congestive heart failure but so far he was not diagnosed with it. We will know more tomorrow after we receive the results of TTE Started Lasix 40 mg IV daily. Would titrate Lasix to possibly twice daily. Desirable net negative output would be 1 L Low-sodium diet Strict in and out Daily weight Admission and Anticipated Discharge Date Admission Date: September 02, 2019 Subjective 49 yo male reports feeling better today. He states he is coughing less. He denies any subjective fever, chills, nausea, vomiting. Review of Systems Review of Systems: All systems reviewed & are unremarkable except as noted in HPI & below Physical Exam Physical Exam: Constitutional: WD/WN, vitals as above well developed and + morbidly obese Eyes: PERRL, conjunctivae normal, anicteric sclerae ENMT: external ear and nose normal, oropharynx normal Neck: trachea midline, no thyromegaly Respiratory: no longer in respiratory distress. decreased breath sounds at bases Cardiovascular: Rate/Rhythm: + irregularly irregular Heart Sounds: normal S1 and normal S2 Extremities: + pedal edema Gastrointestinal (Abdomen): normal bowel sounds, soft, nontender, no hepatosplenomegaly Musculoskeletal: no cyanosis or clubbing, extremities motor strength 5/5 Skin: no rashes, warm and dry Neurologic: patellar DTR's 2+ bilat, sensation intact Psychiatric: A+Ox3, euthymic affect Lymphatic: no cervical or axillary lymphadenopathy Results & Data ([facility]) Vital Signs (Past 12 Hours) Vital Signs Temp Pulse Resp BP Pulse Ox 09/04/19 19:32 37.1 C 102 H 18 158/95 H 91 09/04/19 19:09 82 18 95 09/04/19 16:32 37.0 C 93 H 18 144/89 H 92 09/04/19 13:53 95 H 16 94 09/04/19 12:00 37.3 C 87 20 133/86 92 PG Care Time/CCT Total # of Minutes Spent Total Time Spent with Patient: Total time spent is greater than 50% in coordination of care (as documented) at patient's floor/unit and/or counseling patient: Coding Level of Care Code 87624 Subseq Hosp Care Lvl 3 Diagnoses Pneumonia J18.9 New onset a-fib I48.91 Morbid obesity E66.01 Obstructive sleep apnea hypopnea, severe G47.33 Hypertension I10 Volume overload E87.70 Time Spent (min) 35
[2019-09-05] MEDS: LEVALBUTEROL HCL 0.63 MG/3 ML NEB NEB SCH ×3 (00:55→13:15)
[2019-09-05] MEDS: IPRATROPIUM BROMIDE NEB SOLN 0.02% 2.5 ML VIAL INH SCH ×3 (00:56→13:15)
[2019-09-05 05:47] LABS: Basophils # (auto) 0.01 K/uL (0-0.2); Basophils % (auto) 0.3 %; Eosinophils # (auto) 0.05 K/uL (0-0.5); Eosinophils % (auto) 1.3 %; Hematocrit (blood only) 43.2 % (42-52); Hemoglobin 14.4 g/dL (14.0-18.0); Lymphocytes # (auto) 1.52 K/uL (1.2-3.4); Lymphocytes % (auto) 38.6 %; Mean Corpuscular Hemoglobin 31.8 pg (25-34); Mean Corpuscular Hgb Conc 33.3 g/dL (32-36); Mean Corpuscular Volume 95.4 fL (80-100); Mean Platelet Volume 9.9 fL (7.4-10.4); Monocytes # (auto) 0.59 K/uL (0.11-0.59); Neutrophils # (auto) 1.77 K/uL (1.4-6.5); Neutrophils % (auto) 44.8 %; Platelet Count 202 K/uL (130-400); RDW Coefficient of Variation 13.6 % (11.5-14.5); RDW Standard Deviation 48.1 fL (36.4-46.3); Red Blood Count 4.53 M/uL (4.7-6.1); White Blood Count 3.94 K/uL (4.8-10.8)
[2019-09-05 06:20] LABS: Albumin Level 3.1 gm/dl (3.4-5.0); Calcium 8.3 mg/dl (8.5-10.1); Creatinine Clr Calc Pharmacy 138.1 ml/min; Est GFR (African American) 99.4; Est GFR (Non-African American) 85.7; Potassium 3.1 mmol/L (3.5-5.1)
[2019-09-05 06:23] LABS: Albumin Globulin Ratio 0.7 (0.9-2); Bilirubin,Total 0.7 mg/dl (0.2-1); Globulin 4.4 gm/dl (2.5-4.0); Total Protein 7.5 gm/dl (6.4-8.2)
[2019-09-05 07:40] LABS: INR 1.1 (0.9-1.1); Prothrombin Time 11.3 Seconds (9.0-12.0)
[2019-09-05] MEDS: AMLODIPINE BESYLATE 5 MG TAB PO SCH (08:22)
[2019-09-05] MEDS: METOPROLOL TARTRATE 50 MG TAB PO SCH (08:22)
[2019-09-05] MEDS: FUROSEMIDE 40 MG in SYRINGE 0 ML IV SCH (08:22)
[2019-09-05] MEDS: ENOXAPARIN INJ 40 MG/0.4 ML SYR SQ SCH (08:22)
[2019-09-05] MEDS: OSELTAMIVIR PHOSPHATE 75 MG CAP PO SCH (08:24)
[2019-09-05] MEDS: DOXYCYCLINE HYCLATE 100 MG in DEXTROSE 5% 100 ML IV SCH (08:32)
[2019-09-05] MEDS ORDERED: WARFARIN SOD 10 MG TAB PO ONE (12:36)
--- NOTE | 2019-09-05 13:09 | Cardiology Progress Note ---
Date of Service September 05, 2019 Assessment & Plan (1) Atrial fibrillation with RVR: He remains in atrial fibrillation, his heart rate is improved on his current medications. Is still little bit high but I think acceptable and I would leave him on his current AV marsha blockers. He should remain on anticoagulation. I will arrange follow-up in 3 to 4 weeks after discharge and put that appointment in his discharge paperwork. If he remains in atrial fibrillation we can arrange cardioversion. This episode may be related to his current presentation but we cannot assume that. As to the specific anticoagulant, Xarelto has been tested in obese patients up to 484 pounds and therefore it is likely safe for him to be on Xarelto. Admission and Anticipated Discharge Date Admission Date: September 02, 2019 Subjective He is feeling well today, he remains unaware of his arrhythmia. Physical Exam Physical Exam: Constitutional: Alert, cooperative and in no distress. He is morbidly obese HEENT: Unremarkable Neck: No jugular venous distention, carotid pulses are irregular but otherwise normal and equal bilaterally without bruits. Pulmonary: Clear to auscultation bilaterally. Cardiac: Irregular rhythm with no murmur, gallop or rub. Abdomen: Soft, nontender with normal bowel sounds. Extremities: No edema. Distal pulses intact. Neurologic: No focal findings. Gait is steady. Skin: No rash, ecchymoses or petechiae. Results & Data ([facility]) Vital Signs (Past 12 Hours) Vital Signs Temp Pulse Pulse Resp BP Pulse Ox 09/05/19 11:52 37.1 C 85 22 134/85 94 09/05/19 07:56 37.1 C 87 18 148/93 H 92 09/05/19 07:10 88 20 91 09/05/19 04:56 37.3 C 78 21 149/91 H 92 09/05/19 01:52 71 Laboratory Results Cardiac Enzymes 09/05/19 Range/Units 05:25 AST 49 H (15-37) U/L Coagulation 09/05/19 Range/Units 06:58 PT 11.3 (9.0-12.0) Seconds CBC 09/05/19 Range/Units 05:25 WBC 3.94 L (4.8-10.8) K/uL RBC 4.53 L (4.7-6.1) M/uL Hgb 14.4 (14.0-18.0) g/dL Hct 43.2 (42-52) % Plt Count 202 (130-400) K/uL Neut # (Auto) 1.77 (1.4-6.5) K/uL Lymph # (Auto) 1.52 (1.2-3.4) K/uL [place] # (Auto) 0.59 (0.11-0.59) K/uL Eos # (Auto) 0.05 (0-0.5) K/uL Baso # (Auto) 0.01 (0-0.2) K/uL Comprehensive Metabolic Panel 09/05/19 Range/Units 05:25 Sodium 138 (136-145) mmol/L Potassium 3.1 L (3.5-5.1) mmol/L Chloride 103 (98-107) mmol/L Carbon Dioxide 30 (21-32) mmol/L BUN 15 (7-18) mg/dl Creatinine 1.01 (0.6-1.4) mg/dl Glucose 102 H (70-99) mg/dl Calcium 8.3 L (8.5-10.1) mg/dl AST 49 H (15-37) U/L ALT 67 (12-78) U/L Alkaline Phosphatase 64 (45-117) U/L Total Protein 7.5 (6.4-8.2) gm/dl Albumin 3.1 L (3.4-5.0) gm/dl Intake and Output 09/04/19 09/05/19 09/05/19 22:59 06:59 14:59 Intake Total 670 / 2290 910 / 2290 110 / 110 Output Total 700 / 700 Balance -30 / 1590 910 / 1590 110 / 110 Intake: IV 70 / 290 110 / 290 110 / 110 Vibramycin 100 mg In D5 100 ml 110 / 220 110 / 110 @ 50 mls/hr IV BID ALVINO Rx#: [id number] Rocephin 2,000 mg In D5w 50 ml 70 / 70 @ 100 mls/hr IV Q24H ALVINO Rx#: [id number] Oral 600 / 2000 800 / 2000 Output: Urine 700 / 700 Other: Weight 172.5 kg Diagnostic Findings Telemetry: Atrial fibrillation, rate averaging around 90 bpm. PG Care Time/CCT Total # of Minutes Spent Total Time Spent with Patient: Total time spent is greater than 50% in coordination of care (as documented) at patient's floor/unit and/or counseling patient: Coding Level of Care Code 29125 Subseq Hosp Care Lvl 2 Diagnoses Atrial fibrillation with RVR I48.91
--- NOTE | 2019-09-10 23:56 | Discharge Summary ---
Date of Service September 05, 2019 Admission HPI Per Admitting Provider The patient is a 49 years old male with past medical history of hypertension, obstructive sleep apnea who presents to the emergency room with a complaint of shortness of breath, fever, and cough which started 2 days ago and it is worsening. Patient was traveling with family to [facility] and his nephew was sick with bronchitis. The patient also noted myalgia, cough, chest tightness, rhinorrhea and mild headache. The patient used some Tylenol to relieve his symptoms. Patient denies chest pain, headache,, abdominal pain, neck pain,, nausea, vomiting, abdominal pain, back pain, melena, hematochezia, urinary symptoms, numbness, weakness, lymphadenopathy, rash.The labs are reviewed: WBC is 6.11, hemoglobin 14.1, hematocrit 42.2, platelets 207, PT 11.4, INR 1.1, APTT 29.1, sodium 136, potassium 3.9, chloride 103, carbon dioxide 28, anion gap 5, BUN 13, creatinine 1.04, GFR 82.7, glucose 107, lactate 1.5, calcium 8.5, magnesium 1.8, total bilirubin 1, AST 32, ALT 60, alkaline phosphatase 71, lactate dehydrogenase 202, troponin I 0.015, BNP 1337, total protein 7.8, albumin 3.5, globulin 4.3, albumin globulin ratio 0.8, procalcitonin pending Influenza A negative, influenza B negative. Blood cultures pending. CTA of the chest: There is no evidence of pulmonary embolus. Peribronchovascular consolidation in the right upper lobe and to lesser extent in the right lower lobe. Findings favor multifocal pneumonia with an atypical infectious etiology. Suspected residual thymic tissue. EKG shows atrial fibrillation with rapid ventricular response. Incomplete right bundle branch block. The EKG is compared to April 27, 1993 when EKG shows sinus rhythm. Incomplete right bundle branch block was not present at that time. The decision was made to admit patient to PCU on telemetry for cough, pneumonia, shortness of breath and new onset of paroxysmal atrial fibrillation with RVR. Principal Diagnosis Pneumonia/ Influenza Discharge Exam Constitutional: WD/WN, vitals as above well developed and + morbidly obese Eyes: PERRL, conjunctivae normal, anicteric sclerae ENMT: external ear and nose normal, oropharynx normal Neck: trachea midline, no thyromegaly Respiratory: no longer in respiratory distress. decreased breath sounds at bases Cardiovascular: Rate/Rhythm: + irregularly irregular Heart Sounds: normal S1 and normal S2 Extremities: + pedal edema Gastrointestinal (Abdomen): normal bowel sounds, soft, nontender, no hepatosplenomegaly Musculoskeletal: no cyanosis or clubbing, extremities motor strength 5/5 Skin: no rashes, warm and dry Neurologic: patellar DTR's 2+ bilat, sensation intact Psychiatric: A+Ox3, euthymic affect Lymphatic: no cervical or axillary lymphadenopathy Discharge Data Allergies Allergy/AdvReac Type Severity Reaction Status Date / Time No Known Drug Allergies Allergy Verified 09/10/19 13:05 Consultations 09/02/19 15:28 ED Decision to Admit Stat 09/02/19 22:01 Consult Cardiology Routine Ordered Studies 09/02/19 15:59 CT angio chest PE protocol Stat Hospital Course (1) Pneumonia: Admitted to PCU on telemetry, Concern over coronavirus given his recent travel and conference. However biofire was positive for influenza. Reviewed CT scan which shows groundglass opacities showing an atypical pneumonia Placed on droplet precautions and removed contact and airborne precautions. D/W nursing staff, dicussed with infection control. Informed patient. Placed on oseltamivir Initially on antibiotics but procal is negative, will stop. DVT prophylaxis Lovenox-patient was started on Lovenox for A. fib's 40 mg subcu twice daily. Full code (2) New onset a-fib: New onset of A. fib's with RVR, rate controlled. titrated up to metoprolol to 50 mg PO BID during hospital stay which controlled the heart rate. Consult cardiology, Initally treated on lovenox, with plans to use warfarin intermediate card tender. However had discussion with cardio, and they recommend xarelto as their has been evidence it works in patients with elevated weight. Will discharge patient on toprol xl 100 mg PO once daily (3) Morbid obesity: Patient advised to lose weight, engage in life style changes, control eating habits and exercises. (4) Obstructive sleep apnea hypopnea, severe: Patient has CPAP at home which is on automatic setting. Setting while in the hospital will start with 15 and RR 10-12, and further manage per respiratory therapy (5) Hypertension: Patient had poorly controlled blood pressure in the ER, could be because he was taking at home Tylenol Cold for severe flu which may increase blood pressure. Started hydralazine 10 mg p.o. 4 times daily as needed for elevated blood pressure systolic over 160 and diastolic over 90. (6) Volume overload: Patient is morbidly obese and has lower extremity edema. He could be in congestive heart failure but so far he was not diagnosed with it. We will know more tomorrow after we receive the results of TTE Started Lasix 40 mg IV daily. Would titrate Lasix to possibly twice daily. Desirable net negative output would be 1 L Low-sodium diet Strict in and out Daily weight Total Time Total Time Spent Total Time Spent (In Minutes): 32 Discharge Plan Discharge Items Patient Disposition: Home - Self-Care Reason For Visit: COUGH,SOB,PNA Discharge Diagnosis: Influenza Activity: Resume your previous activity Non-emergency contact: Primary Care Provider Call non-emergency contact if: you have any medication questions Follow-up/Referrals: Fran Santo MD [Physician] - 09/25/19 1:30 pm Gildardo Tran III, MD [Primary Care Provider] - 09/09/19 1:30 pm (FOLLOW-UP APPT AT DR. TRAN'S OFFICE WITH THE PA) Diet: Heart Healthy Addtl Attending Provider Instructions: You have been hospitalized for an acute medical problem. During your stay at [facility], we have made an effort to correct the problem that brought you to the hospital while keeping you as comfortable as possible. Medications were used to bring your condition under control and your discharge instructions will include directions for any medications you should take after leaving the hospital. Please make sure you see your Primary Care Provider as part of your follow up plan. We will discharge you on tamiflu for your flu infection. You will also be placed on metoprolol which will help control your heart rate. You will also be on xarelto to help with keep your blood thin. Pending Studies at Discharge: No Stand-Alone Forms: [facility], Smoking Cessation Medications and DC Order Prescriptions: New Xarelto 20 mg tablet 20 mg PO PM Qty: 30 RF: 0 metoprolol succinate 100 mg tablet extended release 24 hr 100 mg PO PM Qty: 30 RF: 0 albuterol sulfate 90 mcg/actuation HFA aerosol inhaler 2 puffs INH Q6H PRN (Reason: shortness of breath or wheezing) Qty: 8 RF: 0 Continued amlodipine 5 mg tablet 5 mg PO QAM Qty: 30 RF: 0 Tylenol Cold and Flu Severe 5-14-331-200 mg/15 mL Liquid 15 ml PO UD RF: 0 Discharge Orders: Discharge Order (Routine); Ordered 09/05/19 Ordered By: Rakesh Wade Admission Data Admit Date/Time: 09/02/19 18:04 Attending Provider: Rakesh Wade Admit Provider: Senait Lee Primary Care Provider: Gildardo Tran III Other Providers: Senait Lee ; Tereso Lei Other Interventions: Discharge Summary Assessment (RN) Last Done: 09/05/19 13:50 DC Date/Time DO NOT enter until pt leaves facility: 09/05/19 14:06 Coding Level of Care Code D/C Day Management >30 mins Diagnoses Pneumonia J18.9 New onset a-fib I48.91 Morbid obesity E66.01 Obstructive sleep apnea hypopnea, severe G47.33 Hypertension I10 Volume overload E87.70
== END 2019-09-05 14:06 | disposition home or self-care (01) | DRG 195 ==
LOC: ED 12:56 → 2E 18:04 → SUATTDRO 18:04 → 2E 18:32

== ENCOUNTER 2022-08-27 03:39 | Inpatient (IN) ==
[2022-08-27] MEDS ORDERED: SODIUM CHLORIDE 0.9% 1000ML 1,000 ML IV STA (03:57)
[2022-08-27] MEDS ORDERED: ACETAMINOPHEN 1,000 MG/100 ML VIAL IV STA (03:57)
--- NOTE | 2022-08-27 04:14 | Emergency Department Note ---
ED Provider Note History of Present Illness Chief Complaint: Chest Pain Stated Complaint: CHEST PAIN,SOB Time Seen by Provider: 08/27/22 03:47 Source: patient Mode of arrival: ambulatory Limitations: no limitations This patient is a 52-year-old male who presents to the emergency department for evaluation of a rapid heart rate. Patient reports that a few hours prior to arrival, he began having some body aches and not feeling well. He had some chills and noticed that he was panting. He reports feeling somewhat short of breath. He denies any chest pain, abdominal pain, headaches or vomiting. He is not short of breath at this time. Patient recently had a cardioversion for atrial fibrillation but states that 2 days afterward, he felt himself go back into atrial fibrillation. He does take Xarelto and flecainide for this. He denies any recent sick contacts. He denies any travel. Home Medications Medication Instructions Recorded Confirmed Type multivitamin (Multiple Vitamins 1 tab PO QPM 06/23/21 08/27/22 History tablet) amlodipine 5 mg tablet 10 mg PO QAM #180 tabs 07/26/22 08/27/22 Rx metoprolol succinate 100 mg 100 mg PO PM #90 tabs 07/26/22 08/27/22 Rx tablet,extended release 24 hr flecainide 100 mg tablet 200 mg PO Q12H #120 tabs 07/28/22 08/27/22 Rx rivaroxaban 20 mg tablet (Xarelto) 20 mg PO PM #90 tabs 08/02/22 08/27/22 Rx Allergies Allergy/AdvReac Type Severity Reaction Status Date / Time No Known Drug Allergies Allergy Unknown Verified 08/27/22 07:14 Past Med/Surg History Medical History Atrial fibrillation 2019 > Xarelto Hernia "Not repaired yet" History of COVID-11 October 2020 Hypertension Hypertension Morbid obesity Sleep apnea CPAP Surgical History History of cardioversion Jan 2020 > [facility] & March 2022 at [facility] (successful for about 10 days) History of colonoscopy History of oral surgery History of tonsillectomy Anita teeth extracted under local Family History Uncle Diabetes Sister Kidney stones Mother Cerebral aneurysm dec at 70 Father Lung cancer dec at 53 Other No family history of adverse response to anesthesia Denies family history of Ovarian cancer Prostate cancer Myocardial infarction Breast cancer Colorectal cancer Social History Smoking Status: Never smoker Second Hand Exposure: No; Do You Dip or Chew Tobacco: No; Tobacco Cessation Education Requested by Patient: No Hx Alcohol Use: Yes Alcohol type: beer, wine and hard liquor Hx Substance Use: No Preferred Language: Zambian Communication Ability: Effective Visual Impairment: No Limitations Hearing Ability: Normal Hospice Community Liaison Required: No Beliefs That Will Affect Care: None marital status: Current Living Situation: Alone current occupational status: employed Other Information That Helps Us Care for You: No Feels Safe at Home: Yes Safety Concerns: Feels Safe At This Time Childhood Exposure to Second-Hand Smoke: Yes Dental Care, Regularly: Yes Physical Activity Frequency: 1-2 Times per Week Seatbelt Use: always Sunscreen Use: Yes Assistive Devices: CPAP Physical Exam Vital Signs Vital Signs - 24 hr 08/27/22 03:44 08/27/22 03:52 08/27/22 04:32 Temperature 39.1 C H Temperature Source Temporal Artery Scan Pulse Rate 136 H 132 H Pulse Rate from SpO2 Sensor Respiratory Rate 26 H Respiratory Effort / Characteristics Short of Breath Non-Labored Spontaneous Respiratory Depth Normal Blood Pressure 138/78 Blood Pressure Mean 98 Pulse Oximetry 94 Oxygen Delivery Method Room Air Sepsis Recent Fever Within 48 Hours Yes Sepsis New/Unexplained Change in Mental Status N/A Sepsis Action Taken by Nursing No Action Required 08/27/22 03:53 08/27/22 03:53 08/27/22 04:00 Temperature Temperature Source Pulse Rate 128 H 123 H Pulse Rate from SpO2 Sensor 138 H Respiratory Rate 24 20 Respiratory Effort / Characteristics Respiratory Depth Blood Pressure 110/68 Blood Pressure Mean 82 Pulse Oximetry 81 L Oxygen Delivery Method Sepsis Recent Fever Within 48 Hours Sepsis New/Unexplained Change in Mental Status Sepsis Action Taken by Nursing 08/27/22 04:30 08/27/22 04:40 08/27/22 04:50 Temperature Temperature Source Pulse Rate 100 H 112 H 113 H Pulse Rate from SpO2 Sensor 101 H 131 H 120 H Respiratory Rate 25 H 25 H 23 Respiratory Effort / Characteristics Respiratory Depth Blood Pressure Blood Pressure Mean Pulse Oximetry 91 91 90 Oxygen Delivery Method Sepsis Recent Fever Within 48 Hours Sepsis New/Unexplained Change in Mental Status Sepsis Action Taken by Nursing 08/27/22 05:00 08/27/22 05:03 08/27/22 05:03 Temperature Temperature Source Pulse Rate 107 H 123 H Pulse Rate from SpO2 Sensor 103 H 110 H Respiratory Rate 23 25 H Respiratory Effort / Characteristics Respiratory Depth Blood Pressure 98/55 L Blood Pressure Mean 69 Pulse Oximetry 90 90 Oxygen Delivery Method Sepsis Recent Fever Within 48 Hours Sepsis New/Unexplained Change in Mental Status Sepsis Action Taken by Nursing 08/27/22 05:10 08/27/22 05:20 08/27/22 05:30 Temperature Temperature Source Pulse Rate 114 H 110 H 99 H Pulse Rate from SpO2 Sensor 139 H 114 H 103 H Respiratory Rate 22 28 H 23 Respiratory Effort / Characteristics Respiratory Depth Blood Pressure Blood Pressure Mean Pulse Oximetry 91 94 94 Oxygen Delivery Method Sepsis Recent Fever Within 48 Hours Sepsis New/Unexplained Change in Mental Status Sepsis Action Taken by Nursing 08/27/22 05:40 08/27/22 05:50 08/27/22 05:59 Temperature Temperature Source Pulse Rate 104 H 106 H 100 H Pulse Rate from SpO2 Sensor 96 H 109 H 88 Respiratory Rate 21 21 20 Respiratory Effort / Characteristics Respiratory Depth Blood Pressure Blood Pressure Mean Pulse Oximetry 94 93 93 Oxygen Delivery Method Sepsis Recent Fever Within 48 Hours Sepsis New/Unexplained Change in Mental Status Sepsis Action Taken by Nursing 08/27/22 06:00 Temperature Temperature Source Pulse Rate Pulse Rate from SpO2 Sensor Respiratory Rate Respiratory Effort / Characteristics Respiratory Depth Blood Pressure 96/76 L Blood Pressure Mean 82 Pulse Oximetry Oxygen Delivery Method Sepsis Recent Fever Within 48 Hours Sepsis New/Unexplained Change in Mental Status Sepsis Action Taken by Nursing VITALS: Vitals are noted on the nurse's note and reviewed by myself. GENERAL: This is a 52-year-old obese male, lying supine in bed. SKIN: The skin was without rashes. EARS: External auditory canals clear, tympanic membranes pearly farrell without erythema or effusion bilaterally. EYES: Pupils equal round and reactive to light and accommodation. MOUTH: Mucous membranes moist. Tonsils are not enlarged. Pharynx without erythema or exudate. NECK: Supple without nuchal rigidity. No lymphadenopathy. HEART: Tachycardic, regular rhythm without murmurs gallops or rubs. LUNGS: Clear to auscultation bilaterally without wheezes, rales or rhonchi. No retractions or accessory muscle use. ABDOMEN: Positive bowel sounds x 4. Soft, nontender. MUSCULOSKELETAL: 1+ pitting edema bilaterally. NEURO: Patient was alert and oriented to person place and time. Course Administered Medications Acetaminophen (Acetaminophen 500 Mg Tab) 1,000 mg PO TID PRN PRN Reason: pain/fever Stop: 09/26/22 11:27 Last Admin: 08/29/22 13:09 Dose: 1,000 mg Documented By: Admin: 08/29/22 04:09 Dose: 1,000 mg Documented By: Admin: 08/28/22 18:35 Dose: 1,000 mg Documented By: LETICIA Amlodipine Besylate (Amlodipine Besylate 5 Mg Tab) 5 mg PO QAM [facility] Stop: 09/28/22 12:59 Last Admin: 08/30/22 08:26 Dose: 5 mg Documented By: Admin: 08/29/22 13:06 Dose: 5 mg Documented By: ERIC Dofetilide (Dofetilide 125 Mcg Capsule) 500 mcg PO BID [facility] Stop: 09/29/22 15:44 Last Admin: 08/30/22 20:38 Dose: 500 mcg Documented By: Admin: 08/30/22 16:09 Dose: 500 mcg Documented By: ERIC Ceftriaxone Sodium 2,000 mg/ (Dextrose) 70 mls @ 100 mls/hr IV DAILY ALVINO; Protocol Stop: 09/11/22 10:59 Last Infusion: 08/30/22 09:08 Dose: 0 mls/hr Documented By: Admin: 08/30/22 08:26 Dose: 100 mls/hr Documented By: Infusion: 08/29/22 09:28 Dose: 0 mls/hr Documented By: Admin: 08/29/22 08:46 Dose: 100 mls/hr Documented By: Infusion: 08/28/22 13:20 Dose: 0 mls/hr Documented By: Admin: 08/28/22 12:20 Dose: 100 mls/hr Documented By: LETICIA Metoprolol Succinate (Metoprolol Succ 50mg Ext Rel Tab) 100 mg PO HS [facility] Stop: 09/26/22 20:59 Last Admin: 08/30/22 20:38 Dose: 100 mg Documented By: Admin: 08/29/22 20:06 Dose: 100 mg Documented By: Admin: 08/28/22 20:05 Dose: 100 mg Documented By: Admin: 08/27/22 20:21 Dose: 100 mg Documented By: CHERI Rivaroxaban (Rivaroxaban 20 Mg Tab) 20 mg PO QDD [facility] Stop: 09/26/22 16:29 Last Admin: 08/30/22 16:10 Dose: 20 mg Documented By: Admin: 08/29/22 16:22 Dose: 20 mg Documented By: Admin: 08/28/22 17:40 Dose: 20 mg Documented By: Admin: 08/27/22 17:39 Dose: 20 mg Documented By: SHARIFA Discontinued Medications Acetaminophen (Acetaminophen 325 Mg Tab) 650 mg PO Q4H PRN PRN Reason: pain/fever Stop: 09/26/22 11:27 Last Admin: 08/28/22 07:50 Dose: 650 mg Documented By: Admin: 08/28/22 02:23 Dose: 650 mg Documented By: Admin: 08/27/22 18:49 Dose: 650 mg Documented By: Admin: 08/27/22 12:32 Dose: 650 mg Documented By: MASON Flecainide Acetate (Flecainide Acetate 100 Mg Tablet) 200 mg PO Q12H [facility] Stop: 09/26/22 11:59 Last Admin: 08/29/22 00:11 Dose: 200 mg Documented By: Admin: 08/28/22 13:19 Dose: 200 mg Documented By: Admin: 08/27/22 23:33 Dose: 200 mg Documented By: Admin: 08/27/22 12:27 Dose: 200 mg Documented By: MASON Sodium Chloride (Nss 1000ml) 1,000 mls @ 999 mls/hr IV .Q1H1M STA Stop: 08/27/22 04:57 Last Infusion: 08/27/22 06:25 Dose: 999 mls/hr Documented By: Admin: 08/27/22 04:21 Dose: 999 mls/hr Documented By: ABBI Acetaminophen (Ofirmev) 1,000 mg in 100 mls @ 400 mls/hr IV NOW STA Stop: 08/27/22 04:11 Last Infusion: 08/27/22 04:45 Dose: 400 mls/hr Documented By: Admin: 08/27/22 04:21 Dose: 400 mls/hr Documented By: ABBI Cefepime HCl (Maxipime) 2,000 mg in 20 mls @ 5 mls/min IV NOW STA; Protocol Stop: 08/27/22 05:14 Last Admin: 08/27/22 05:27 Dose: 5 mls/min Documented By: ABBI Vancomycin HCl 2,750 mg/ (Sodium Chloride) 555 mls @ 200 mls/hr IV NOW ONE Stop: 08/27/22 07:57 Last Admin: 08/27/22 05:47 Dose: 200 mls/hr Documented By: ABBI Sodium Chloride (Nss 1000ml) 250 mls @ 999 mls/hr IV .Q16M ONE Stop: 08/27/22 05:29 Last Infusion: 08/27/22 06:24 Dose: 999 mls/hr Documented By: Admin: 08/27/22 05:47 Dose: 999 mls/hr Documented By: ABBI Sodium Chloride (Nss) 500 mls @ 999 mls/hr IV .Q31M ONE Stop: 08/27/22 05:50 Last Infusion: 08/27/22 06:24 Dose: 999 mls/hr Documented By: Admin: 08/27/22 05:47 Dose: 999 mls/hr Documented By: ABBI Ampicillin Sodium/Sulbactam Sodium 1,500 mg/ Sodium Chloride 104 mls @ 200 mls/hr IV Q6H [facility]; Protocol Stop: 09/10/22 19:59 Last Infusion: 08/28/22 09:04 Dose: 0 mls/hr Documented By: Admin: 08/28/22 07:45 Dose: 200 mls/hr Documented By: Infusion: 08/28/22 03:16 Dose: 0 mls/hr Documented By: Admin: 08/28/22 02:15 Dose: 200 mls/hr Documented By: Infusion: 08/27/22 23:32 Dose: 0 mls/hr Documented By: Admin: 08/27/22 21:32 Dose: 200 mls/hr Documented By: CHERI Ibuprofen (Ibuprofen 200 Mg Tab) 400 mg PO NOW STA Stop: 08/28/22 10:28 Last Admin: 08/28/22 10:34 Dose: 400 mg Documented By: LETICIA Ioversol (Optiray 350 100ml) 100 ml IV ONCE ONE Stop: 08/29/22 15:55 Last Admin: 08/29/22 15:55 Dose: 100 ml Documented By: KENZIE Potassium Chloride (Potassium Chloride Crtab 20 Meq Tabcr) 40 meq PO NOW STA Stop: 08/29/22 09:09 Last Admin: 08/29/22 10:02 Dose: 40 meq Documented By: ERIC Potassium Chloride (Potassium Chloride Crtab 20 Meq Tabcr) 40 meq PO NOW STA Stop: 08/30/22 08:57 Last Admin: 08/30/22 09:31 Dose: 40 meq Documented By: ERIC Medical Decision Making Differential Diagnosis Viral syndrome, otitis, pharyngitis, pneumonia, influenza, meningitis, urinary tract infection, sepsis, bacteremia, as well as other pathologies. Home Medications was personally reviewed by me Laboratory Data Attestation: I reviewed the patient's lab results. 08/27/22 04:00 08/27/22 04:00 Lab Results 08/27/22 08/27/22 08/27/22 Range/Units 04:00 04:00 04:00 WBC 12.95 H (4.8-10.8) K/ul RBC 4.77 (4.70-6.10) M/uL Hgb 14.7 (14.0-18.0) g/dl Hct 43.3 (42.0-52.0) % MCV 90.8 (80.0-100.0) fL MCH 30.8 (25.0-34.0) pg MCHC 33.9 (32.0-36.0) g/dL RDW Std Deviation 46.5 H (36.4-46.3) fL RDW Coeff of Romario 13.9 (11.5-14.5) % Plt Count 249 (130-400) K/uL MPV 10.0 (9.4-12.4) fL Immature Gran % (Auto) 0.8 % Neut % (Auto) 92.8 % Lymph % (Auto) 2.1 % [place] % (Auto) 4.0 % Eos % (Auto) 0.1 % Baso % (Auto) 0.2 % Neut # (Auto) 12.02 H (1.40-6.50) K/uL Lymph # (Auto) 0.27 L (1.2-3.4) K/uL [place] # (Auto) 0.52 (0.11-0.59) K/uL Eos # (Auto) 0.01 (0-0.50) K/uL Baso # (Auto) 0.03 (0-0.2) K/uL Immature Gran # (Auto) 0.10 (0.01-0.20) K/uL Sodium 138 (136-145) mmol/L Potassium 3.6 (3.5-5.1) mmol/L Chloride 105 (98-107) mmol/L Carbon Dioxide 26 (21-32) mmol/L Anion Gap 7 (3-11) BUN 26 H (6-23) mg/dl Creatinine 0.96 (0.6-1.4) mg/dl Est Cr Clr Drug Dosing Not Reportable Est GFR ( Amer) 103.4 ml/min Est GFR (Non-Af Amer) 89.3 ml/min BUN/Creatinine Ratio 27.1 H (10-20) Glucose 133 H (70-99(Fasting)) mg/dl Lactate (0.4-2.0) mmol/L Calcium 9.3 (8.5-10.1) mg/dl Total Bilirubin 1.0 (0.2-1.0) mg/dl AST 22 (13-39) U/L ALT 21 (7-52) U/L Alkaline Phosphatase 73 (34-104) U/L Troponin I High Sens 10.6 (0-20) pg/ml Total Protein 7.8 (6.0-8.3) gm/dl Albumin 4.0 (3.4-5.0) gm/dl Globulin 3.8 (2.5-4.0) gm/dl Albumin/Globulin Ratio 1.1 (0.9-2) Procalcitonin 1.24 H (0-0.5) ng/ml Lyme Disease IgM Ab Negative (Negative) SARS-CoV-2 (PCR) (Negative) Influenza Type A (PCR) (Neg) Influenza Type B (PCR) (Neg) RSV (RT-PCR) (Neg) Streptococcus sp PCR (NotDetected) Bld Cult ID Panel PCR (NotDetected) 08/27/22 08/27/22 08/27/22 Range/Units 04:26 04:26 04:26 WBC (4.8-10.8) K/ul RBC (4.70-6.10) M/uL Hgb (14.0-18.0) g/dl Hct (42.0-52.0) % MCV (80.0-100.0) fL MCH (25.0-34.0) pg MCHC (32.0-36.0) g/dL RDW Std Deviation (36.4-46.3) fL RDW Coeff of Romario (11.5-14.5) % Plt Count (130-400) K/uL MPV (9.4-12.4) fL Immature Gran % (Auto) % Neut % (Auto) % Lymph % (Auto) % [place] % (Auto) % Eos % (Auto) % Baso % (Auto) % Neut # (Auto) (1.40-6.50) K/uL Lymph # (Auto) (1.2-3.4) K/uL [place] # (Auto) (0.11-0.59) K/uL Eos # (Auto) (0-0.50) K/uL Baso # (Auto) (0-0.2) K/uL Immature Gran # (Auto) (0.01-0.20) K/uL Sodium (136-145) mmol/L Potassium (3.5-5.1) mmol/L Chloride (98-107) mmol/L Carbon Dioxide (21-32) mmol/L Anion Gap (3-11) BUN (6-23) mg/dl Creatinine (0.6-1.4) mg/dl Est Cr Clr Drug Dosing Est GFR ( Amer) ml/min Est GFR (Non-Af Amer) ml/min BUN/Creatinine Ratio (10-20) Glucose (70-99(Fasting)) mg/dl Lactate 2.3 H* (0.4-2.0) mmol/L Calcium (8.5-10.1) mg/dl Total Bilirubin (0.2-1.0) mg/dl AST (13-39) U/L ALT (7-52) U/L Alkaline Phosphatase (34-104) U/L Troponin I High Sens (0-20) pg/ml Total Protein (6.0-8.3) gm/dl Albumin (3.4-5.0) gm/dl Globulin (2.5-4.0) gm/dl Albumin/Globulin Ratio (0.9-2) Procalcitonin (0-0.5) ng/ml Lyme Disease IgM Ab (Negative) SARS-CoV-2 (PCR) NEGATIVE (Negative) Influenza Type A (PCR) Negative (Neg) Influenza Type B (PCR) Negative (Neg) RSV (RT-PCR) Negative (Neg) Streptococcus sp PCR DETECTED A (NotDetected) Bld Cult ID Panel PCR See PCR Comment (NotDetected) 08/27/22 Range/Units 09:21 WBC (4.8-10.8) K/ul RBC (4.70-6.10) M/uL Hgb (14.0-18.0) g/dl Hct (42.0-52.0) % MCV (80.0-100.0) fL MCH (25.0-34.0) pg MCHC (32.0-36.0) g/dL RDW Std Deviation (36.4-46.3) fL RDW Coeff of Romario (11.5-14.5) % Plt Count (130-400) K/uL MPV (9.4-12.4) fL Immature Gran % (Auto) % Neut % (Auto) % Lymph % (Auto) % [place] % (Auto) % Eos % (Auto) % Baso % (Auto) % Neut # (Auto) (1.40-6.50) K/uL Lymph # (Auto) (1.2-3.4) K/uL [place] # (Auto) (0.11-0.59) K/uL Eos # (Auto) (0-0.50) K/uL Baso # (Auto) (0-0.2) K/uL Immature Gran # (Auto) (0.01-0.20) K/uL Sodium (136-145) mmol/L Potassium (3.5-5.1) mmol/L Chloride (98-107) mmol/L Carbon Dioxide (21-32) mmol/L Anion Gap (3-11) BUN (6-23) mg/dl Creatinine (0.6-1.4) mg/dl Est Cr Clr Drug Dosing Est GFR ( Amer) ml/min Est GFR (Non-Af Amer) ml/min BUN/Creatinine Ratio (10-20) Glucose (70-99(Fasting)) mg/dl Lactate 1.7 (0.4-2.0) mmol/L Calcium (8.5-10.1) mg/dl Total Bilirubin (0.2-1.0) mg/dl AST (13-39) U/L ALT (7-52) U/L Alkaline Phosphatase (34-104) U/L Troponin I High Sens (0-20) pg/ml Total Protein (6.0-8.3) gm/dl Albumin (3.4-5.0) gm/dl Globulin (2.5-4.0) gm/dl Albumin/Globulin Ratio (0.9-2) Procalcitonin (0-0.5) ng/ml Lyme Disease IgM Ab (Negative) SARS-CoV-2 (PCR) (Negative) Influenza Type A (PCR) (Neg) Influenza Type B (PCR) (Neg) RSV (RT-PCR) (Neg) Streptococcus sp PCR (NotDetected) Bld Cult ID Panel PCR (NotDetected) Imaging Data Attestation: I personally reviewed and interpreted this imaging study as follows: My Impression: CHEST 1 VIEW: Cardiomegaly. No acute pulmonary infiltrates. ECG Data Attestation: I personally reviewed and interpreted this ECG as follows: Indication: + SOB/dyspnea Rate (beats per minute): 118 Rhythm: + atrial fibrillation ECG ST segments: + Nonspecific ST abnormalities Change: the following changes noted (Now in atrial fibrillation versus sinus rhythm) MDM Narrative Continuous hospital monitor: Order was placed for continuous hospital monitor. Patient was placed on the hospital monitor. Patient was noted to be in atrial fibrillation an initial rate of 109 bpm. The patient is a 52-year-old male who presents today complaining of shortness of breath and body. Patient found to be febrile on arrival. Symptoms started acutely a few hours prior to arrival. His labs were reviewed and show a l eukocytosis of 12,000. Procalcitonin elevated at 1.24, lactate elevated at 2.3. Chest x-ray shows no obvious pneumonia. COVID-19, influenza and RSV testing was negative. Patient was borderline hypotensive, tachycardic and febrile. He does meet sepsis criteria, although source is unclear at this time. Patient given cefepime and vancomycin empirically. He was given 2500 mL normal saline solution. Fluid resuscitation based on ideal body weight. Case was discussed with the [facility] [place] Divisionist service who agreed to evaluate the patient for further care. Impression Sepsis Critical Care Time Critical Care Time: Yes Total Critical Care Time: 35 I have personally spent greater than 35 minutes of critical care time in the direct management of this patient. This includes bedside care, interpretation of diagnostic studies, and testing, discussion with consultants, patient, and family members, and other required patient management activities. This 35 minutes is in excess of all separately billable procedures. Discharge Plan Visit Data Chief Complaint: Chest Pain Stated Complaint: CHEST PAIN,SOB ED Provider: Fadi Mcgowan ED Midlevel Provider: Ting Cho Discharge Problem: Sepsis Patient Disposition: Admitted As Inpatient Discharge Instructions Interventions: ED Discharge Assessment Last Done: 08/27/22 11:28
[2022-08-27 04:42] LABS: Hematocrit (blood only) 43.3 % (42.0-52.0); Hemoglobin 14.7 g/dl (14.0-18.0); Mean Corpuscular Hemoglobin 30.8 pg (25.0-34.0); Mean Corpuscular Hgb Conc 33.9 g/dL (32.0-36.0); Mean Corpuscular Volume 90.8 fL (80.0-100.0); Platelet Count 249 K/uL (130-400); RDW Coefficient of Variation 13.9 % (11.5-14.5); RDW Standard Deviation 46.5 fL (36.4-46.3); Red Blood Count 4.77 M/uL (4.70-6.10); White Blood Count 12.95 K/ul (4.8-10.8)
[2022-08-27 04:50] LABS: Alanine Aminotransferase 21 U/L (7-52); Albumin Globulin Ratio 1.1 (0.9-2); Alkaline Phosphatase 73 U/L (34-104); Anion Gap 7 (3-11); Aspartate Aminotransferase 22 U/L (13-39); BUN Creatinine Ratio 27.1 (10-20); Blood Urea Nitrogen 26 mg/dl (6-23); Calcium 9.3 mg/dl (8.5-10.1); Carbon Dioxide 26 mmol/L (21-32); Chloride 105 mmol/L (98-107); Est GFR (African American) 103.4 ml/min; Est GFR (Non-African American) 89.3 ml/min; Globulin 3.8 gm/dl (2.5-4.0); Glucose 133 mg/dl (70-99(Fasting)); Potassium 3.6 mmol/L (3.5-5.1); Sodium 138 mmol/L (136-145); Total Protein 7.8 gm/dl (6.0-8.3)
[2022-08-27 04:57] LABS: Troponin I High Sensitivity 10.6 pg/ml (0-20)
[2022-08-27 05:03] LABS: Procalcitonin 1.24 ng/ml (0-0.5)
[2022-08-27] MEDS ORDERED: VANCOMYCIN CONSULT ACTIVE PRN (05:11)
[2022-08-27] MEDS ORDERED: CEFEPIME 2,000 MG/20 ML VIAL IV STA (05:11)
[2022-08-27] MEDS ORDERED: VANCOMYCIN HCL 2,750 MG in SODIUM CHLORIDE 0.9% 500 ML IV ONE (05:11)
[2022-08-27] MEDS ORDERED: SODIUM CHLORIDE 0.9% 1000ML 250 ML IV ONE (05:14)
[2022-08-27] MEDS ORDERED: SODIUM CHLORIDE 0.9% 500 ML IV ONE (05:20)
[2022-08-27 05:23] LABS: Influenza A virus by PCR Negative (Neg); Influenza B virus by PCR Negative (Neg); RSV by PCR Negative (Neg); SARS CoV2 RNA(COVID-19) Ceph NEGATIVE (Negative)
[2022-08-27 05:23] LABS: Basophils # (auto) 0.03 K/uL (0-0.2); Basophils % (auto) 0.2 %; Eosinophils # (auto) 0.01 K/uL (0-0.50); Eosinophils % (auto) 0.1 %; Immature Granulocytes % (auto) 0.8 %; Lymphocytes # (auto) 0.27 K/uL (1.2-3.4); Lymphocytes % (auto) 2.1 %; Monocytes # (auto) 0.52 K/uL (0.11-0.59); Neutrophils # (auto) 12.02 K/uL (1.40-6.50); Neutrophils % (auto) 92.8 %
--- NOTE | 2022-08-27 08:19 | XRay Report ---
XR chest 1V portable HISTORY: 52 years-old Male Fever acute fever COMPARISON: Chest CT of same day TECHNIQUE: AP view of the chest FINDINGS: Cardiac silhouette is enlarged. No pneumothorax, pleural effusion, airspace consolidation or pulmonar y edema. Bones appear grossly intact. IMPRESSION: No acute process. ACT 112: Negative or not required by law. The above report was generated using voice recognition software. It may contain grammatical, syntax o r spelling errors. Electronically signed by: Josué West M.D. 08/27/2022 8:18 AM
--- NOTE | 2022-08-27 09:26 | History & Physical Report ---
Date of Service August 27, 2022 Assessment & Plan (1) SIRS (systemic inflammatory response syndrome): Plan: - 52 yo WM w/ acute SIRS (fever, tachycardia, leukocytosis) w/o clear source of infection - Admit to med tele - Reviewed cbc and bmp - s/p 3L of NSS, no further fluids to be given - Repeat lactate ordered stat - UA is still pending but pt feels that he should be able to produce sample now - Hold off on further abx at this time until UA reviewed - Respiratory BioFire ordered - Lyme IgM w/ WB reflex - Blood cultures ordered and pending (2) Atrial fibrillation: Plan: - Currently with variable rate, believe his uncontrolled rate was the cause of his dyspnea - Resume Flecainide and Xarelto - Resume Metoprolol Succinate this evening if BP will tolerate (3) Hypertension: Plan: - Hold Amlodipine today d/t soft pressures - Can resume Metoprolol Succinate this evening if BP permits, hold parameters in place (4) Morbid obesity: Plan: - With JANN, on cpap at home - May bring in own cpap for use - Strongly recommend weight loss Plan Repeat cbc, bmp, and mag level ordered for tomorrow morning. Above plan of care has been d/w Dr. Obrien who has also seen and evaluated this patient, further orders will be implemented as warranted. Admission and Anticipated Discharge Date Admission Date: Patient seen and examined, chart reviewed, case discussed with Shanita Roy PA-C and I agree with the assessment and plan as above except as otherwise noted Labs and images reviewed 52-year-old with a history of A-fib with cardio version who presents back in A- fib and with fever, shortness of breath, and palpitations. Lungs are grossly clear, heart rate is tachycardic. Bio fire pending. Flecainide, Xarelto, metoprolol resumed. Suspect rate induced dyspnea rather than infectious etiology. Agree with management above. History of Present Illness Chief Complaint: chest pain and shortness of breath Primary Care Provider: Hina Cerda PA-C Fadi Lovell is a 52 yo WM with a pmhx of afib s/p cardioversion on 08/15/22 but felt himself go back in afib 48 hours later who presents to the ER today c/o fever, racing heart, and shortness of breath. He developed a fever around 2200 on 08/26/22. He denies cough, congestion, ill contacts, rash, urinary symptoms, or GI symptoms. He denies tick bites in the fall. He decided to come to the ER for further evaluation around 0330 this AM. His work up here demonstrated a fever of 39.1C and tachycardia. He was found to have an elevated wbc count with left shift and a positive lactate of 2.3 and elevated procalcitonin of 1.24. A urinalysis is still pending at this time. He underwent CTs of the chest, abdomen, and pelvis without acute findings. He was medicated with 3L of NSS in the ER and a dose of empiric Vancomycin and Cefepime. He denies having a history of MRSA. Patient was referred to the hospitalist service for admission. Currently, he is comfortable in ER litter, has no complaints, denies shortness of breath. Allergies Allergy/AdvReac Type Severity Reaction Status Date / Time No Known Drug Allergies Allergy Unknown Verified 08/27/22 07:14 Home Medications Medication Instructions Recorded Confirmed Type multivitamin (Multiple Vitamins 1 tab PO QPM 06/23/21 08/27/22 History tablet) amlodipine 5 mg tablet 10 mg PO QAM #180 tabs 07/26/22 08/27/22 Rx metoprolol succinate 100 mg 100 mg PO PM #90 tabs 07/26/22 08/27/22 Rx tablet,extended release 24 hr flecainide 100 mg tablet 200 mg PO Q12H #120 tabs 07/28/22 08/27/22 Rx rivaroxaban 20 mg tablet (Xarelto) 20 mg PO PM #90 tabs 08/02/22 08/27/22 Rx Past Med/Surg History Medical History Atrial fibrillation 2019 > Xarelto Hernia "Not repaired yet" History of COVID-11 October 2020 Hypertension Hypertension Morbid obesity Sleep apnea CPAP Surgical History History of cardioversion Jan [address] [facility] & March [address] [facility] (successful for about 10 days) History of colonoscopy History of oral surgery History of tonsillectomy Matthews teeth extracted under local Family History Uncle Diabetes Sister Kidney stones Mother Cerebral aneurysm dec at 70 Father Lung cancer dec at 53 Other No family history of adverse response to anesthesia Denies family history of Ovarian cancer Prostate cancer Myocardial infarction Breast cancer Colorectal cancer Social History Smoking Status: Never smoker Second Hand Exposure: No; Do You Dip or Chew Tobacco: No; Tobacco Cessation Education Requested by Patient: No Hx Alcohol Use: Yes Alcohol type: beer, wine and hard liquor Hx Substance Use: No Preferred Language: Romanian Communication Ability: Effective Visual Impairment: No Limitations Hearing Ability: Normal Box Blank Machine Feeder Required: No Beliefs That Will Affect Care: None marital status: Current Living Situation: Alone current occupational status: employed Other Information That Helps Us Care for You: No Feels Safe at Home: Yes Safety Concerns: Feels Safe At This Time Childhood Exposure to Second-Hand Smoke: Yes Dental Care, Regularly: Yes Physical Activity Frequency: 1-2 Times per Week Seatbelt Use: always Sunscreen Use: Yes Assistive Devices: CPAP Physical Exam Physical Exam: GENERAL: 52 yo WM morbidly obese, awake, alert, oriented x4, nontoxic, NAD. LUNGS: Clear to auscultation bilaterally. Nonlabored. CARDIOVASCULAR: Irregular rhythm with variable rate 90-100s ABDOMEN: Soft, obese, nontender. +BS throughout. EXTREMITIES: B/L LE dependent edema. Non-tender. Peripheral pulses +2/4. SKIN: Warm, dry, intact. No rashes or lesions. Results & Data Results & Data ([facility]) Vital Signs (Past 12 Hours) Vital Signs Temp Pulse Resp BP Pulse Ox O2 Del Method 08/27/22 07:56 95 H 08/27/22 06:00 96/76 L 08/27/22 05:59 100 H 20 93 08/27/22 05:50 106 H 21 93 08/27/22 05:40 104 H 21 94 08/27/22 05:30 99 H 23 94 08/27/22 05:20 110 H 28 H 94 08/27/22 05:10 114 H 22 91 08/27/22 05:03 123 H 25 H 90 08/27/22 05:03 98/55 L 08/27/22 05:00 107 H 23 90 08/27/22 04:50 113 H 23 90 08/27/22 04:40 112 H 25 H 91 08/27/22 04:30 100 H 25 H 91 08/27/22 04:00 123 H 20 08/27/22 03:53 128 H 24 81 L 08/27/22 03:53 110/68 08/27/22 03:52 132 H 08/27/22 03:44 39.1 C H 136 H 26 H 138/78 94 Room Air Laboratory Results 08/27/22 04:00 08/27/22 04:00 Diagnostic Findings Chest X-Ray 08/27/22 03:58 XR chest 1V portable HISTORY: 52 years-old Male Fever acute fever COMPARISON: Chest CT of same day TECHNIQUE: AP view of the chest FINDINGS: Cardiac silhouette is enlarged. No pneumothorax, pleural effusion, airspace con solidation or pulmonary edema. Bones appear grossly intact. IMPRESSION: No acute process. ACT 112: Negative or not required by law. The above report was generated using voice recognition software. It may contain grammatical, syntax or spelling errors. Electronically signed by: Josué West M.D. 08/27/2022 8:18 AM Abdomen/Pelvis CT 08/27/22 06:35 CT chest diagnostic wo con, CT abd pelvis wo con CT DOSE: 4818.97 mGy.cm CLINICAL HISTORY: 52 years-old Male with hypoxia, sepsis. Acute hypoxia with sepsis TECHNIQUE: Multiaxial CT images of the chest, abdomen and pelvis were performed without contrast. A dose lowering technique was utilized adhering to the principles of ALARA. COMPARISON: CT chest, abdomen and pelvis June 26, 2021 FINDINGS: CT CHEST: Limited exam secondary to patient body habitus. Stable soft tissue density with in the anterior mediastinum measures approximately 3.6 x 1.8 cm on image 86 suggestive of thymic hyperplasia. Unremarkable thyroid. No definite pathologically enlarged lymph nodes identified within the chest. Heart is upper limits of normal in size without pericardial effusion. Minimal coronary artery calcifications. No thoracic aortic aneurysm. No pneumothorax, pleural effusion, airspace consolidation or overt pulmonary edema. Mild bibasilar atelectasis versus scarring. No suspicious pulmonary nodules or masses identified. Minimal mosaic attenuation of the lungs is suggestive of air trapping. Mild bronchial wall thickening may represent bronchitis or reactive airway disease. No acute process of the imaged upper abdomen. Hepatic steatosis. Suggestion of cholelithiasis. Unremarkable soft tissues. Degenerative changes of the shoulders and spine. CT ABDOMEN/PELVIS: No pneumatosis or pneumoperitoneum. The unenhanced spleen measures the upper limits of normal in size. Hepatomegaly with hepatic steatosis. Mild generalized pancreatic atrophy. Adrenal glands and visualized gallbladder unremarkable. Limited study secondary to patient body habitus. Exophytic 2.7 cm lesion of the inferior pole left kidney similar to prior suggestive of a probable cyst. Calcifications of the central prostate. Urinary bladder wall thickening with partial distention. Small fat filled inguinal hernias. Mildly enlarged inguinal chain lymph nodes measure up to 1.3 cm mild likely reactive. No abdominal aortic aneurysm. No bowel obstruction or bowel wall thickening. Mild perianal inflammation is redemonstrated without discrete abscess or fistula. Mild colonic fecal retention. Fat filled umbilical hernia, diastases of 2.7 cm. Degenerative changes of the spine, pelvis and hips. IMPRESSION: 1. Limited exam secondary to patient body habitus. 2. No acute intrathoracic, intra-abdominal or intrapelvic abnormality identified. 3. Mild perianal inflammation has improved compared to the June 2021 exam. No abscess or fistula identified. 4. Hepatomegaly with hepatic steatosis. 5. Additional findings as above. ACT 112: Negative or not required by law. Electronically signed by: Josué West M.D. 08/27/2022 9:[address] 08/27/22 06:35 CT chest diagnostic wo con, CT abd pelvis wo con CT DOSE: 4818.97 mGy.cm CLINICAL HISTORY: 52 years-old Male with hypoxia, sepsis. Acute hypoxia with sepsis TECHNIQUE: Multiaxial CT images of the chest, abdomen and pelvis were performed without contrast. A dose lowering technique was utilized adhering to the principles of ALARA. COMPARISON: CT chest, abdomen and pelvis June 26, 2021 FINDINGS: CT CHEST: Limited exam secondary to patient body habitus. Stable soft tissue density within the anterior mediastinum measures approximately 3.6 x 1.8 cm on image 86 suggestive of thymic hyperplasia. Unremarkable thyroid. No definite pathologically enlarged lymph nodes identified within the chest. Heart is upper limits of normal in size without pericardial effusion. Minimal coronary artery calcifications. No thoracic aortic aneurysm. No pneumothorax, pleural effusion, airspace consolidation or overt pulmonary edema. Mild bibasilar atelectasis versus scarring. No suspicious pulmonary nodules or masses identified. Minimal mosaic attenuation of the lungs is suggestive of air trapping. Mild bronchial wall thickening may represent bronchitis or reactive airway disease. No acute process of the imaged upper abdomen. Hepatic steatosis. Suggestion of cholelithiasis. Unremarkable soft tissues. Degenerative changes of the shoulders and spine. CT ABDOMEN/PELVIS: No pneumatosis or pneumoperitoneum. The unenhanced spleen measures the upper limits of normal in size. Hepatomegaly with hepatic steatosis. Mild generalized pancreatic atrophy. Adrenal glands and visualized gallbladder unremarkable. Limited study secondary to patient body habitus. Exophytic 2.7 cm lesion of the inferior pole left kidney similar to prior suggestive of a probable cyst. Calcifications of the central prostate. Urinary bladder wall thickening with partial distention. Small fat filled inguinal hernias. Mildly enlarged inguinal chain lymph nodes measure up to 1.3 cm mild likely reactive. No abdominal aortic aneurysm. No bowel obstruction or bowel wall thickening. Mild perianal inflammation is redemonstrated without discrete abscess or fistula. Mild colonic fecal retention. Fat filled umbilical hernia, diastases of 2.7 cm. Degenerative changes of the spine, pelvis and hips. IMPRESSION: 1. Limited exam secondary to patient body habitus. 2. No acute intrathoracic, intra-abdominal or intrapelvic abnormality identified. 3. Mild perianal inflammation has improved compared to the June 2021 exam. No abscess or fistula identified. 4. Hepatomegaly with hepatic steatosis. 5. Additional findings as above. ACT 112: Negative or not required by law. Electronically signed by: Josué West M.D. 08/27/2022 9:25 AM ECG Additional Comments: Afib with RVR, no acute ST-T wave changes Code Status & VTE Plan Code Status Full code - d/w pt and his Supervising Physician Co-Signing Physician Notes Patient seen and examined, chart reviewed, case discussed with Nadine Roy PA-C and I agree with the assessment and plan as above except as otherwise noted Labs and images reviewed Fadi Lovell is a 52-year-old male with a past medical history of A-fib with recent cardioversion on amlodipine, flecainide, metoprolol, and rivaroxaban who presents with hypotension, tachycardia, fever and palpitations and who was admitted for suspected sepsis of initially unclear origin. CTchest/abdomen: No acute intrathoracic, intra-abdominal, intrapelvic abnormality. Mild perianal inflammation improving from prior. Hepatomegaly with steatosis. Mild colonic fecal retention. Mildly enlarged inguinal lymph chain 1.3 cm suspected reactive with urinary bladder wall thickening and partial distention. UA is pending. CXR: No acute findings Leukocytosis of 12.95 on admission, is hypotensive and tachycardic with a elevated lactate of 2.3. Lactate normalized following initial fluids and antibiotics. High-sensitivity troponin is normal. Procalcitonin is elevated at 1.24. UA is pending. Blood cultures are pending. Sodium, potassium, creatinine are normal on admission.Admitting EKG: A-fib with RVR rate 110, nonspecific ST abnormality but no territorial ST segment elevation/depressions or T wave inversions. Compared to prior patient has returned to A-fib from post cardioversion sinus. Patient seen at bedside. Reports he has had Erratic heart beat. Fever. Shortness of breath. At bedside assessment feels improved and not too short of breath, bu tlast night felt much worse. Does endorses Fevers/chills, Had shortness of breath which is now improved and is laying flat comfortably.Denies urinary symptoms. No rashes or skin changes. Legs feel more swollen than normal, R>L swells more at baseline. Hadn't been able to put legs up since.Is anticoagulated and compliant;Xarelto, took last night.Lungs are grossly clear, heart rate is tachycardic and irregular, legs are with bilateral soft tissue swelling, abdomen is obese but nontender to palpation. Cap refill in thumb and toes brisk at time of assessment. I agree with follow-up of urine above, an tibiotic treatment as above.Viral panel expanded given fever, minimal urinary symptoms, and no clear other source of infection.Patient uses CPAP, has own machine with him which he can use. Agree with above. PG Care Time/CCT Total # of Minutes Spent Total Time Spent with Patient: Total time spent is greater than 50% in coordination of care (as documented) at patient's floor/unit and/or counseling patient: Coding Level of Care Code 97691 INT INP/OBS CARE 3/75MIN Diagnoses SIRS (systemic inflammatory response syndrome) R65.10 Atrial fibrillation I48.11 Atrial fibrillation type: longstanding persistent Hypertension I10 Hypertension type: primary hypertension Morbid obesity E66.01 (2) Atrial fibrillation Atrial fibrillation type: longstanding persistent Qualified Code(s): I48.11 - Longstanding persistent atrial fibrillation (3) Hypertension Hypertension type: primary hypertension Qualified Code(s): I10 - Essential (primary) hypertension
--- NOTE | 2022-08-27 09:28 | CT Scan Report ---
CT chest diagnostic wo con, CT abd pelvis wo con CT DOSE: 4818.97 mGy.cm CLINICAL HISTORY: 52 years-old Male with hypoxia, sepsis. Acute hypoxia with sepsis TECHNIQUE: Multiaxial CT images of the chest, abdomen and pelvis were performed without contrast. A dose lowering technique was utilized adhering to the principles of ALARA. COMPARISON: CT chest, abdomen and pelvis June 26, 2021 FINDINGS: CT CHEST: Limited exam secondary to patient body habitus. Stable soft tissue density within the anterior medias tinum measures approximately 3.6 x 1.8 cm on image 86 suggestive of thymic hyperplasia. Unremarkable thyroid. No definite pathologically enlarged lymph nodes identified within the chest. Heart is upper limits of normal in size without pericardial effusion. Minimal coronary artery calcifications. No tho racic aortic aneurysm. No pneumothorax, pleural effusion, airspace consolidation or overt pulmonary edema. Mild bibasilar at electasis versus scarring. No suspicious pulmonary nodules or masses identified. Minimal mosaic atten uation of the lungs is suggestive of air trapping. Mild bronchial wall thickening may represent bronc hitis or reactive airway disease. No acute process of the imaged upper abdomen. Hepatic steatosis. Paulino ggestion of cholelithiasis. Unremarkable soft tissues. Degenerative changes of the shoulders and spin e. CT ABDOMEN/PELVIS: No pneumatosis or pneumoperitoneum. The unenhanced spleen measures the upper limits of normal in size . Hepatomegaly with hepatic steatosis. Mild generalized pancreatic atrophy. Adrenal glands and visual ized gallbladder unremarkable. Limited study secondary to patient body habitus. Exophytic 2.7 cm lesi on of the inferior pole left kidney similar to prior suggestive of a probable cyst. Calcifications of the central prostate. Urinary bladder wall thickening with partial distention. Small fat filled ingu inal hernias. Mildly enlarged inguinal chain lymph nodes measure up to 1.3 cm mild likely reactive. N o abdominal aortic aneurysm. No bowel obstruction or bowel wall thickening. Mild perianal inflammation is redemonstrated without d iscrete abscess or fistula. Mild colonic fecal retention. Fat filled umbilical hernia, diastases of 2 .7 cm. Degenerative changes of the spine, pelvis and hips. IMPRESSION: 1. Limited exam secondary to patient body habitus. 2. No acute intrathoracic, intra-abdominal or intrapelvic abnormality identified. 3. Mild perianal inflammation has improved compared to the June 2021 exam. No abscess or fistula i dentified. 4. Hepatomegaly with hepatic steatosis. 5. Additional findings as above. ACT 112: Negative or not required by law. Electronically signed by: Josué West M.D. 08/27/2022 9:25 AM
[2022-08-27 10:47] LABS: Appearance Urine Clear (Clear); Bacteria Urine Automated Negative (Negative); Bilirubin Urine Negative (Negative); Blood Urine Negative (Negative); Color Urine Dark Yellow; Glucose Urine UA Negative (Negative); Ketones Urine Trace (Negative); Leukocyte Esterase Urine Negative (Negative); Nitrite Urine Negative (Negative); Protein Urine 1+ (Negative); RBC Urine Automated 0-4 /hpf (0-4); Specific Gravity Urine 1.035 (1.000-1.030); Urobilinogen Urine Negative (Negative)
[2022-08-27] MEDS ORDERED: ONDANSETRON INJ 2 MG/ML 2 ML VIAL IV PRN (11:28)
[2022-08-27] MEDS ORDERED: ALUMINUM/MAGNESIUM SUSP 30 ML UDC PO PRN (11:28)
[2022-08-27] MEDS ORDERED: MAGNESIUM HYDROXIDE SUSP 30 ML UDC PO PRN (11:28)
[2022-08-27 11:29] LABS: Adenovirus PCR Not Detected (NotDetected); Bordetella parapertussis PCR Not Detected (NotDetected); Bordetella pertussis PCR Not Detected (NotDetected); Chlamydia pneumoniae PCR Not Detected (NotDetected); Coronavirus 229E PCR Not Detected (NotDetected); Coronavirus CoV-2 (COVID19)PCR Not Detected (NotDetected); Coronavirus HKU1 PCR Not Detected (NotDetected); Coronavirus NL63 PCR Not Detected (NotDetected); Coronavirus OC43PCR Not Detected (NotDetected); Human Metapneumovirus PCR Not Detected (NotDetected); Influenza A PCR Not Detected (NotDetected); Influenza B PCR Not Detected (NotDetected); Mycoplasma pneumoniae PCR Not Detected (NotDetected); Parainfluenza Virus 1 PCR Not Detected (NotDetected); Parainfluenza Virus 2 PCR Not Detected (NotDetected); Parainfluenza Virus 3 PCR Not Detected (NotDetected); Parainfluenza Virus 4 PCR Not Detected (NotDetected); Respiratory Syncytial VirusPCR Not Detected (NotDetected); Rhinovirus/Enterovirus PCR Not Detected (NotDetected)
[2022-08-27 11:41] LABS: Lyme Ab IgM w/WB Rflx Negative (Negative)
[2022-08-27] MEDS: FLECAINIDE ACETATE 100 MG TABLET PO SCH ×2 (12:27→23:33)
[2022-08-27] MEDS: ACETAMINOPHEN 325 MG TAB PO PRN ×2 (12:32→18:49)
--- NOTE | 2022-08-27 14:45 | Electrocardiogram Report ---
Test Reason : Blood Pressure : / mmHG Vent. Rate : 118 BPM Atrial Rate : 187 BPM P-R Int : 000 ms QRS Dur : 110 ms QT Int : 370 ms P-R-T Axes : 000 050 060 degrees QTc Int : 518 ms Poor data quality, interpretation may be adversely affected Atrial fibrillation with rapid ventricular response Nonspecific ST abnormality Abnormal ECG When compared with ECG of 15-AUG-2022 07:37, Atrial fibrillation has replaced Sinus rhythm Vent. rate has increased BY [address] abnormality now present Confirmed by Tereso Lei ([id number]) on 08/27/2022 2:44:58 PM Referred By: REFERRED SELF Confirmed By:Tereso Lei
[2022-08-27] MEDS: RIVAROXABAN 20 MG TAB PO SCH (17:39)
[2022-08-27 18:54] LABS: A calco-baum cmplx NotReported Not Detected (NotDetected); Bact fragilis Not Reported Not Detected (NotDetected); C auris Not Reported Not Detected (NotDetected); Calbicans Not Reported Not Detected (NotDetected); Candida glabrata Not Reported Not Detected (NotDetected); Candida krusei Not Reported Not Detected (NotDetected); Cneoformans/gatti Not Reported Not Detected (NotDetected); Cparapsilosis Not Reported Not Detected (NotDetected); Ctropicalis Not Reported Not Detected (NotDetected); E cloacae compx Not Reported Not Detected (NotDetected); Efaecalis Not Reported Not Detected (NotDetected); Efaecium Not Reported Not Detected (NotDetected); Enterobacterales Not Reported Not Detected (NotDetected); Escherichia coli Not Reported Not Detected (NotDetected); H influenzae Not Reported Not Detected (NotDetected); K aerogenes Not Reported Not Detected (NotDetected); Koxytoca Not Reported Not Detected (NotDetected); Kpneumoniae grp Not Reported Not Detected (NotDetected); Lmonocyt Not Reported Not Detected (NotDetected); N meningitidis Not Reported Not Detected (NotDetected); P aeruginosa Not Reported Not Detected (NotDetected); Proteus spp Not Reported Not Detected (NotDetected); Salmonella spp Not Reported Not Detected (NotDetected); Smarcescens Not Reported Not Detected (NotDetected); Staph lugdunensis Not Reported Not Detected (NotDetected); Staph spp. Not Reported Not Detected (NotDetected); Staphaureus Not Reported Not Detected (NotDetected); Staphepi Not Reported Not Detected (NotDetected); Stenmaltophilia Not Reported Not Detected (NotDetected); Strep agal(GrpB) Not Reported Not Detected (NotDetected); Strep pneum Not Reported Not Detected (NotDetected); Strep pyog (GrpA) Not Reported Not Detected (NotDetected); Strep spp Not Reported DETECTED (NotDetected)
[2022-08-27 19:15] LABS: Streptococcus spp DETECTED (NotDetected)
[2022-08-27] MEDS: METOPROLOL SUCC 50MG EXT REL TAB PO SCH (20:21)
[2022-08-27] MEDS: AMPICILLIN/SULBACTAM SOD 1,500 MG in 0.9 % SODIUM CHLORIDE 100 ML IV SCH (21:32)
[2022-08-28] MEDS: AMPICILLIN/SULBACTAM SOD 1,500 MG in 0.9 % SODIUM CHLORIDE 100 ML IV SCH ×2 (02:15→07:45)
[2022-08-28] MEDS: ACETAMINOPHEN 325 MG TAB PO PRN ×2 (02:23→07:50)
[2022-08-28 07:39] LABS: Basophils # (auto) 0.03 K/uL (0-0.2); Basophils % (auto) 0.2 %; Hematocrit (blood only) 41.4 % (42.0-52.0); Hemoglobin 13.6 g/dl (14.0-18.0); Immature Granulocytes # (auto) 0.21 K/uL (0.01-0.20); Immature Granulocytes % (auto) 1.7 %; Lymphocytes # (auto) 0.61 K/uL (1.2-3.4); Lymphocytes % (auto) 4.9 %; Mean Corpuscular Hemoglobin 30.5 pg (25.0-34.0); Mean Corpuscular Hgb Conc 32.9 g/dL (32.0-36.0); Mean Corpuscular Volume 92.8 fL (80.0-100.0); Mean Platelet Volume 10.1 fL (9.4-12.4); Monocytes # (auto) 0.57 K/uL (0.11-0.59); Monocytes % (auto) 4.6 %; Neutrophils # (auto) 10.97 K/uL (1.40-6.50); Neutrophils % (auto) 88.6 %; Platelet Count 177 K/uL (130-400); RDW Coefficient of Variation 14.4 % (11.5-14.5); RDW Standard Deviation 49.4 fL (36.4-46.3); Red Blood Count 4.46 M/uL (4.70-6.10); White Blood Count 12.39 K/ul (4.8-10.8)
[2022-08-28 07:57] LABS: BUN Creatinine Ratio 23.6 (10-20); Calcium 8.8 mg/dl (8.5-10.1); Creatinine Clr Calc Pharmacy 110.3 ml/min; Est GFR (African American) 76.7 ml/min; Est GFR (Non-African American) 66.1 ml/min; Magnesium 1.9 mg/dl (1.7-2.4); Potassium 3.6 mmol/L (3.5-5.1)
[2022-08-28] MEDS ORDERED: IBUPROFEN 200 MG TAB PO STA (10:27)
--- NOTE | 2022-08-28 10:49 | Hospitalist Progress Note ---
Date of Service August 28, 2022 Assessment & Plan (1) SIRS (systemic inflammatory response syndrome): Plan: - Acute SIRS (fever, tachycardia, leukocytosis and elevated lactate) w/ possible sepsis - No clear source of infection - Reviewed CBC, persistent mild leukocytosis - UA not suggestive of infection and in fact appears contaminated - Respiratory BioFire ordered and results reviewed-negative - Lyme IgM w/ WB reflex-pending - Blood cultures ordered with 2/4 positive for GPC in chains - started on Unasyn *mod-high risk (2) Bacteremia: Plan: Acute - Reviewed blood cultures - 2/4 tubes reported positive for GPC in chains (likely strep species) - Given his persistent fever, believe this to represent true infection - Source is still unclear - Abx choice d/w pharmacist, Estephanie recommended, change to Rocephin 2g IV daily - Will obtain echo *mod-high risk (3) Atrial fibrillation: Plan: - Currently with variable rate, fluctuating d/t fevers - Continue Flecainide and Xarelto - Continue Metoprolol Succinate (4) Hypertension: Plan: - Continue holding Amlodipine for now - Continue Metoprolol Succinate 100mg HS (5) Morbid obesity: Plan: - With JANN, on cpap at home - May bring in own cpap for use - Strongly recommend weight loss Plan Repeat CBC and BMP tomorrow. Above plan of care has been d/w Dr. Morrison. Admission and Anticipated Discharge Date Admission Date: August 27, 2022 Subjective Seen on rounds this morning. Reports since running a fever that responds to Tylenol. C/o mild headache and chills with sweats. No cp or dyspnea. One of two sets of blood cultures were called to RN last evening as being positive and he was started on antibiotics by the overnight resident. Physical Exam Physical Exam: GENERAL: 52 yo WM morbidly obese, awake, alert, oriented x4, nontoxic, NAD. LUNGS: Clear to auscultation bilaterally. Nonlabored. CARDIOVASCULAR: Irregular rhythm with variable rate 90-100s ABDOMEN: Soft, obese, nontender. +BS throughout. EXTREMITIES: B/L LE dependent edema. Non-tender. Peripheral pulses +2/4. SKIN: Warm, dry, intact. No rashes or lesions. Results & Data Results & Data ([facility]) Vital Signs (Past 12 Hours) Vital Signs Temp Pulse Pulse Resp BP Pulse Ox O2 Del Method 08/28/22 08:00 Nasal Cannula 08/28/22 10:14 37.6 C H 08/28/22 07:37 38.1 C H 108 H 18 125/83 98 Nasal Cannula 08/28/22 06:15 37.4 C 97 H 22 136/85 97 Nasal Cannula 08/28/22 03:02 39.3 C H 113 H 22 121/66 94 Nasal Cannula 08/28/22 02:18 39.4 C H O2 Flow Rate 08/28/22 08:00 3 08/28/22 10:14 08/28/22 07:37 2.5 08/28/22 06:15 3 08/28/22 03:02 3 08/28/22 02:18 Laboratory Results 08/28/22 06:56 08/28/22 06:56 PG Care Time/CCT Total # of Minutes Spent Total Time Spent with Patient: Total time spent is greater than 50% in coordination of care (as documented) at patient's floor/unit and/or counseling patient: Coding Level of Care Code 55834 SUB INP/OBS CARE 3/50MIN Diagnoses SIRS (systemic inflammatory response syndrome) R65.10 Bacteremia R78.81 Atrial fibrillation I48.11 Atrial fibrillation type: longstanding persistent Hypertension I10 Hypertension type: primary hypertension Morbid obesity E66.01 (3) Atrial fibrillation Atrial fibrillation type: longstanding persistent Qualified Code(s): I48.11 - Longstanding persistent atrial fibrillation (4) Hypertension Hypertension type: primary hypertension Qualified Code(s): I10 - Essential (primary) hypertension
[2022-08-28] MEDS: cefTRIAXone SODIUM 2,000 MG in DEXTROSE 5% 50 ML IV SCH (12:20)
[2022-08-28] MEDS: FLECAINIDE ACETATE 100 MG TABLET PO SCH (13:19)
--- NOTE | 2022-08-28 13:56 | XCELERA ---
[id number]
[2022-08-28] MEDS: RIVAROXABAN 20 MG TAB PO SCH (17:40)
[2022-08-28] MEDS: ACETAMINOPHEN 500 MG TAB PO PRN (18:35)
[2022-08-28] MEDS: METOPROLOL SUCC 50MG EXT REL TAB PO SCH (20:05)
[2022-08-29] MEDS: FLECAINIDE ACETATE 100 MG TABLET PO SCH (00:11)
[2022-08-29] MEDS: ACETAMINOPHEN 500 MG TAB PO PRN ×2 (04:09→13:09)
[2022-08-29 08:41] LABS: Basophils # (auto) 0.02 K/uL (0-0.2); Basophils % (auto) 0.2 %; Eosinophils # (auto) 0.04 K/uL (0-0.50); Eosinophils % (auto) 0.5 %; Hematocrit (blood only) 39.3 % (42.0-52.0); Hemoglobin 13.1 g/dl (14.0-18.0); Immature Granulocytes # (auto) 0.05 K/uL (0.01-0.20); Immature Granulocytes % (auto) 0.6 %; Lymphocytes # (auto) 0.98 K/uL (1.2-3.4); Lymphocytes % (auto) 11.4 %; Mean Corpuscular Hemoglobin 30.8 pg (25.0-34.0); Mean Corpuscular Hgb Conc 33.3 g/dL (32.0-36.0); Mean Corpuscular Volume 92.3 fL (80.0-100.0); Mean Platelet Volume 9.7 fL (9.4-12.4); Monocytes # (auto) 0.64 K/uL (0.11-0.59); Monocytes % (auto) 7.4 %; Neutrophils # (auto) 6.89 K/uL (1.40-6.50); Neutrophils % (auto) 79.9 %; Platelet Count 168 K/uL (130-400); RDW Standard Deviation 47.9 fL (36.4-46.3); Red Blood Count 4.26 M/uL (4.70-6.10); White Blood Count 8.62 K/ul (4.8-10.8)
[2022-08-29] MEDS: cefTRIAXone SODIUM 2,000 MG in DEXTROSE 5% 50 ML IV SCH (08:46)
[2022-08-29 09:00] LABS: BUN Creatinine Ratio 19.8 (10-20); Calcium 8.7 mg/dl (8.5-10.1); Est GFR (African American) 91.8 ml/min; Est GFR (Non-African American) 79.2 ml/min; Potassium 3.4 mmol/L (3.5-5.1)
[2022-08-29] MEDS ORDERED: POTASSIUM CHLORIDE CRTAB 20 MEQ TABCR PO STA (09:08)
--- NOTE | 2022-08-29 11:16 | Hospitalist Progress Note ---
Date of Service August 29, 2022 Assessment & Plan (1) Septicemia: Plan: - 52 yo WM who presented with acute sepsis syndrome d/t bacteremia - Reviewed CBC, leukocytosis has resolved - UA not suggestive of infection and in fact appears contaminated - Respiratory BioFire ordered and results reviewed-negative - Lyme IgM w/ WB reflex-pending - Reviewed blood cultures - 2/4 tubes reported positive for GPC in chains (likely strep species) Final is Group G Strep which is sensitive to Rocephin - D/w pharmacy and decided to change abx to Rocephin 2g IV daily (first dose on 08/28) - Echo ordered - unfortunately not of great quality to r/o endocarditis, will consult cardiology for CAN - Repeat blood cultures on 08/29 ordered - Last documented fever was 38.4C this AM @0400 - Will plan to consult ID as well to discuss duration *mod-high risk (2) Left leg cellulitis: Plan: - Believe this to be driving source of his bacteremia - Treatment as outlined above (3) Atrial fibrillation: Plan: - Rate now controlled - Continue Flecainide, Toprol XL, and Xarelto (4) Hypokalemia: Plan: - Potassium chloride 40meq po x1 ordered (5) Hypertension: Plan: - Can resume Amlodipine - Continue Toprol (6) Morbid obesity: Plan: - With JANN, on cpap at home - May bring in own cpap for use - Strongly recommend weight loss Plan CBC and BMP reviewed this morning, labs to be repeated tomorrow AM. Plan d/w Dr. Morrison. Significant other, Rebeka, was updated via phone this morning. Admission and Anticipated Discharge Date Admission Date: August 27, 2022 Subjective Patient seen on rounds this morning. Notes that he had a fever early this AM that responded to Tylenol. He otherwise feels fine. Denies cp, dyspnea, or palpitations. He does note worsening swelling and tenderness in his LLE which is new. Physical Exam Physical Exam: GENERAL: 52 yo WM morbidly obese, awake, alert, oriented x4, nontoxic, NAD. LUNGS: Clear to auscultation bilaterally. Nonlabored. CARDIOVASCULAR: Irregular rhythm with controlled rate ABDOMEN: Soft, obese, nontender. +BS throughout. EXTREMITIES: B/L LE 1-2+ pitting edema, L>R SKIN: Erythema and edema of LLE, multiple small scabs/excoriations Results & Data Results & Data ([facility]) Vital Signs (Past 12 Hours) Vital Signs Temp Pulse Pulse Resp BP Pulse Ox O2 Del Method 08/29/22 09:00 Room Air 08/29/22 07:25 36.8 C 75 18 136/84 96 Nasal Cannula 08/29/22 07:00 91 H 08/29/22 06:15 37.2 C 08/29/22 04:00 38.4 C H 122 H 20 157/104 H 95 Room Air 08/28/22 23:53 37.0 C 96 H 22 130/82 95 Room Air O2 Flow Rate 08/29/22 09:00 08/29/22 07:25 2 08/29/22 07:00 08/29/22 06:15 08/29/22 04:00 08/28/22 23:53 PG Care Time/CCT Total # of Minutes Spent Total Time Spent with Patient: Total time spent is greater than 50% in coordination of care (as documented) at patient's floor/unit and/or counseling patient: Coding Level of Care Code 91287 SUB INP/OBS CARE 3/50MIN Diagnoses Septicemia A41.9 Left leg cellulitis L03.116 Atrial fibrillation I48.11 Atrial fibrillation type: longstanding persistent Hypokalemia E87.6 Hypertension I10 Hypertension type: primary hypertension Morbid obesity E66.01 (3) Atrial fibrillation Atrial fibrillation type: longstanding persistent Qualified Code(s): I48.11 - Longstanding persistent atrial fibrillation (5) Hypertension Hypertension type: primary hypertension Qualified Code(s): I10 - Essential (primary) hypertension
[2022-08-29] MEDS: amLODIPine BESYLATE 5 MG TAB PO SCH (13:06)
--- NOTE | 2022-08-29 13:45 | Cardiology Consultation ---
Date of Consultation August 29, 2022 Assessment & Plan (1) Bacteremia: Most common source of group G streptococcal bacteremia is cutaneous infection, he appears to have a left leg cellulitis. Probability of endocarditis would seem fairly low given growth from only 1 of 4 bottles and identifiable source of bacteremia, not clear that index of suspicion for SBE warrants moderately invasive procedure of transesophageal echocardiogram (which may be more challenging given body habitus/BMI 58). Would recommend infectious disease consultation, if they felt there would be a marked difference in duration of antibiotic therapy or if procedure would otherwise change his management, could perform transesophageal echocardiogram a.m. of , 08/31/2022 (I am out of the hospital tomorrow but will be back then). (2) Left leg cellulitis: (3) Morbid obesity: (4) Paroxysmal A-fib: Plan Discussed with Dr. Zhou. Patient has essentially failed flecainide therapy, will discontinue this medication and initiate Tikosyn (which requires a 3-day hospital stay for telemetry monitoring). Tikosyn also requires particular credentials and training, which Dr. Zhou possesses. Therefore, Dr. Zhou will be writing the Tikosyn order tomorrow (after allowing for flecainide washout today, last dose was at midnight last night). Please obtain daily ECG on Tikosyn. History of Present Illness Reason for Consultation: CAN due to bacteremia Requesting Physician: Uriah Morrison MD Attending Physician: Uriah Morrison MD History of Present Illness 52-year-old man with morbid obesity, paroxysmal atrial fibrillation (metopr olol/rivaroxaban), otherwise generally healthy, who was admitted 08/27/2022 with fever, tachycardia, and dyspnea. He had undergone electrical cardioversion by Dr. Zhou last month, he notes that a few days after the conversion he felt he was "out of rhythm" but had not noted tachypalpitations till he became more ill just prior to admission. At the time of my evaluation, he pointed out a significant area of erythema on his left leg which blossomed rather quickly and appears to be a left leg cellulitis, this was not apparent at the time of his admission. Aside from this area of erythema, he feels well and had no complaints of current tachypalpitations, and noted no dyspnea, chest pain, or lightheadedness. Telemetry had shown atrial fibrillation with ventricular rates of up to 158 bpm, however today his rate was in the 90-100 bpm range. Allergies Allergy/AdvReac Type Severity Reaction Status Date / Time No Known Drug Allergies Allergy Unknown Verified 08/27/22 07:14 Home Medications Medication Instructions Recorded Confirmed Type multivitamin (Multiple Vitamins 1 tab PO QPM 06/23/21 08/27/22 History tablet) amlodipine 5 mg tablet 10 mg PO QAM #180 tabs 07/26/22 08/27/22 Rx metoprolol succinate 100 mg 100 mg PO PM #90 tabs 07/26/22 08/27/22 Rx tablet,extended release 24 hr flecainide 100 mg tablet 200 mg PO Q12H #120 tabs 07/28/22 08/27/22 Rx rivaroxaban 20 mg tablet (Xarelto) 20 mg PO PM #90 tabs 08/02/22 08/27/22 Rx Patient History Medical History Atrial fibrillation 2019 > Xarelto Hernia "Not repaired yet" History of COVID-11 October 2020 Hypertension Hypertension Morbid obesity Sleep apnea CPAP Surgical History History of cardioversion Jan 2020 > [facility] & March 2022 at [facility] (successful for about 10 days) History of colonoscopy History of oral surgery History of tonsillectomy [place] teeth extracted under local Family History Uncle Diabetes Sister Kidney stones Mother Cerebral aneurysm dec at 70 Father Lung cancer dec at 53 Other No family history of adverse response to anesthesia Denies family history of Ovarian cancer Prostate cancer Myocardial infarction Breast cancer Colorectal cancer Social History Smoking Status: Never smoker Second Hand Exposure: No; Do You Dip or Chew Tobacco: No; Tobacco Cessation Education Requested by Patient: No Hx Alcohol Use: Yes Alcohol type: beer, wine and hard liquor Hx Substance Use: No Preferred Language: Bulgarian Communication Ability: Effective Visual Impairment: No Limitations Hearing Ability: Normal Manager Educational Required: No Beliefs That Will Affect Care: None marital status: Current Living Situation: Alone current occupational status: employed Other Information That Helps Us Care for You: No Feels Safe at Home: Yes Safety Concerns: Feels Safe At This Time Childhood Exposure to Second-Hand Smoke: Yes Dental Care, Regularly: Yes Physical Activity Frequency: 1-2 Times per Week Seatbelt Use: always Sunscreen Use: Yes Assistive Devices: CPAP Physical Exam Physical Exam: No distress. BMI 58 Normotensive BP. Pulse 92 bpm and irregular. Skin: no ecchymoses or generalized lesions. Left leg with erythema from knee to ankle. HEENT: unremarkable. Neck: Jugular venous pulse mildly elevated, no carotid bruits. Lungs: clear. Cardiac: irregular rhythm, no obvious murmur or gallop. Abdomen: benign. Extremities: 1-2+ pretibial edema with left leg erythema as noted, pulses intact. Neurologic: normal affect and conversation, nonfocal. Results & Data ([facility]) Laboratory Results WBC initially elevated 12.95, 8.62 today. Hemoglobin 13.1. Potassium 3.4, otherwise normal electrolytes, BUN 21, creatinine 1.06. 1 of 4 blood cultures grew group G beta strep. Diagnostic Findings ECG on admission showed atrial fibrillation with rapid ventricular response 118 bpm, nonspecific ST depression globally. Compared with 08/15/2022 ECG atrial fibrillation was new and ventricular rate had increased by 62 bpm, nonspecific ST abnormality now present. Chest CT and chest x-ray showed no acute process. PG Care Time/CCT Total # of Minutes Spent Total Time Spent with Patient: Total time spent is greater than 50% in coordination of care (as documented) at patient's floor/unit and/or counseling patient: Coding Level of Care Code 29662 INT INP/OBS CARE MIN Diagnoses Bacteremia R78.81 Left leg cellulitis L03.116 Morbid obesity E66.01 Paroxysmal A-fib I48.0
--- NOTE | 2022-08-29 14:32 | Infectious Disease Consult ---
Date of Consultation August 29, 2022 Assessment & Plan (1) Septicemia: Problem List Fevers BHS, Group G bacteremia 3/5 LLE Cellulitis 52 yo M with h/o HTN and Afib s/p cardioversion on 08/15/22 but felt himself go back in afib 48 hours who was admitted for sepsis. ID consulted for antibiotic management. Patient states in [facility] until a few days prior to admission. He developed a fever and generalized malaise 2 days TALENT ADVISOR. He noted a small lesion on left lower leg a few weeks ago. He scratched this area. Area noted to be tender. Does not recall trauma. Partner positive w/covid approx 3 weeks TALENT ADVISOR. He denies diarrhea, cough, congestion. On admission he was febrile to 39.1C and tachycardia, mildly hypoxic. Initial Labs notable for leukocytosis to 12.9 and a positive lactate of 2.3 and elevated procalcitonin of 1.24. He underwent CTs of the chest, abdomen, and pelvis without acute findings. Given concern for sepsis he was started on empiric Vancomycin and Cefepime. 3/5 blood cultures are growing BHS, group G in 2/4 bottles ( PCN SUMAN <0.03). 2DE limited views but no obvious vegetation. Discussion: Suspect his LLE is source for strep however he continues to have ongoing fevers. I agree a CAN would be helpful to rule out seeding to valves in lieu of morbid obesity. I would CT his LLE to ensure no underlying abscess. (2) Bacteremia: (3) Left leg cellulitis: (4) Paroxysmal A-fib: Plan -C/W Ceftriaxone 2G IV Daily for now -CT LLE -CAN -Repeat blood culture follow I discussed with primary team. Thank you for this consultation, ID will follow with you. Consultation Information Consultation was provided via telemedicine using two-way real-time interactive telecommunication between the patient and the telemedicine provider. For the duration of the visit, the provider was performing the assessment from a different facility than the patient. This includesuse of bluetooth stethoscope forauscultationperformed by the telepresenter that the telemedicine provider can hear if described in the physical exam. Dry Starch Supervisor contact information: Please call [facility] . (Phone Number For Physician Use Only) After establishing a telemedicine visit, patient was: Patient was verified with two unique identifiers, Patient/authorized rep acknowledged consent and understanding and Gave permission to continue telehealth session Time Spent with Patient: Initial => 55 min History of Present Illness Reason for Consultation: strep sepsis Requesting Physician: Uriah Morrison MD Attending Physician: Uriah Morrison MD History of Present Illness 52 yo M with h/o HTN and Afib s/p cardioversion on 08/15/22 but felt himself go back in afib 48 hours who was admitted for sepsis. ID consulted for antibiotic management. Patient states in [facility] until a few days prior to admission. He developed a fever and generalized malaise 2 days TALENT ADVISOR. He noted a small lesion on left lower leg a few weeks ago. He scratched this area. Area noted to be tender. Does not recall trauma. Partner positive w/covid approx 3 weeks TALENT ADVISOR. He denies diarrhea, cough, congestion. On admission he was febrile to 39.1C and tachycardia, mildly hypoxic. Initial Labs notable for leukocytosis to 12.9 and a positive lactate of 2.3 and elevated procalcitonin of 1.24. He underwent CTs of the chest, abdomen, and pelvis without acute findings. Given concern for sepsis he was started on empiric Vancomycin and Cefepime. 3/5 blood cultures are growing BHS, group G in 2/4 bottles ( PCN SUMAN <0.03). 2DE limited views but no obvious vegetation. ID consulted today for further evaluation and source. Today, he is still febrile to 38.5, no major complaints. No metal/hardware. ROS is o/w negative. Allergies Allergy/AdvReac Type Severity Reaction Status Date / Time No Known Drug Allergies Allergy Unknown Verified 08/27/22 07:14 Home Medications Medication Instructions Recorded Confirmed Type multivitamin (Multiple Vitamins 1 tab PO QPM 06/23/21 08/27/22 History tablet) amlodipine 5 mg tablet 10 mg PO QAM #180 tabs 07/26/22 08/27/22 Rx metoprolol succinate 100 mg 100 mg PO PM #90 tabs 07/26/22 08/27/22 Rx tablet,extended release 24 hr flecainide 100 mg tablet 200 mg PO Q12H #120 tabs 07/28/22 08/27/22 Rx rivaroxaban 20 mg tablet (Xarelto) 20 mg PO PM #90 tabs 08/02/22 08/27/22 Rx Patient History Medical History Atrial fibrillation Dx 2019 > Xarelto Hernia "Not repaired yet" History of COVID-11 October 2020 Hypertension Hypertension Morbid obesity Sleep apnea CPAP Surgical History History of cardioversion Jan 2020 > [facility] & March 2022 at [facility] (successful for about 10 days) History of colonoscopy History of oral surgery History of tonsillectomy [place] teeth extracted under local Family History Uncle Diabetes Sister Kidney stones Mother Cerebral aneurysm dec at 70 Father Lung cancer dec at 53 Other No family history of adverse response to anesthesia Denies family history of Ovarian cancer Prostate cancer Myocardial infarction Breast cancer Colorectal cancer Social History Smoking Status: Never smoker Second Hand Exposure: No; Do You Dip or Chew Tobacco: No; Tobacco Cessation Education Requested by Patient: No Hx Alcohol Use: Yes Alcohol type: beer, wine and hard liquor Hx Substance Use: No Preferred Language: Belarusian Communication Ability: Effective Visual Impairment: No Limitations Hearing Ability: Normal Blood Bank Laboratory Professional Required: No Beliefs That Will Affect Care: None marital status: Current Living Situation: Alone current occupational status: employed Other Information That Helps Us Care for You: No Feels Safe at Home: Yes Safety Concerns: Feels Safe At This Time Childhood Exposure to Second-Hand Smoke: Yes Dental Care, Regularly: Yes Physical Activity Frequency: 1-2 Times per Week Seatbelt Use: always Sunscreen Use: Yes Assistive Devices: CPAP Review of System per HPI Physical Exam Physical Exam: NAD CTA-A Irregular Soft, obese LLE with large area of erythema from ankle to knees, small scabbed areas in anterior portion. Results & Data ([facility]) Vital Signs (Past 12 Hours) Vital Signs Temp Pulse Pulse Resp BP Pulse Ox O2 Del Method 08/29/22 13:12 37.3 C 08/29/22 11:37 36.9 C 92 H 18 137/78 96 Room Air 08/29/22 09:00 Room Air 08/29/22 07:25 36.8 C 75 18 136/84 96 Nasal Cannula 08/29/22 07:00 91 H 08/29/22 06:15 37.2 C 08/29/22 04:00 38.4 C H 122 H 20 157/104 H 95 Room Air O2 Flow Rate 08/29/22 13:12 08/29/22 11:37 08/29/22 09:00 08/29/22 07:25 2 08/29/22 07:00 08/29/22 06:15 08/29/22 04:00 Laboratory Results Laboratory Results - last 48 hr 08/27/22 08/28/22 08/28/22 04:26 06:56 06:56 WBC 12.39 H RBC 4.46 L Hgb 13.6 L Hct 41.4 L MCV 92.8 MCH 30.5 MCHC 32.9 RDW Std Deviation 49.4 H RDW Coeff of Romario 14.4 Plt Count 177 MPV 10.1 Immature Gran % (Auto) 1.7 Neut % (Auto) 88.6 Lymph % (Auto) 4.9 [place] % (Auto) 4.6 Eos % (Auto) 0.0 Baso % (Auto) 0.2 Neut # (Auto) 10.97 H Lymph # (Auto) 0.61 L [place] # (Auto) 0.57 Eos # (Auto) 0.00 Baso # (Auto) 0.03 Immature Gran # (Auto) 0.21 H Sodium 136 Potassium 3.6 Chloride 103 Carbon Dioxide 29 Anion Gap 4 BUN 29 H Creatinine 1.23 Est Cr Clr Drug Dosing 110.3 Est GFR ( Amer) 76.7 Est GFR (Non-Af Amer) 66.1 BUN/Creatinine Ratio 23.6 H Glucose 126 H Calcium 8.8 Magnesium 1.9 Streptococcus sp PCR DETECTED A Bld Cult ID Panel PCR See PCR Comment 08/29/22 08/29/22 08:27 08:27 WBC 8.62 RBC 4.26 L Hgb 13.1 L Hct 39.3 L MCV 92.3 MCH 30.8 MCHC 33.3 RDW Std Deviation 47.9 H RDW Coeff of Romario 14.0 Plt Count 168 MPV 9.7 Immature Gran % (Auto) 0.6 Neut % (Auto) 79.9 Lymph % (Auto) 11.4 [place] % (Auto) 7.4 Eos % (Auto) 0.5 Baso % (Auto) 0.2 Neut # (Auto) 6.89 H Lymph # (Auto) 0.98 L [place] # (Auto) 0.64 H Eos # (Auto) 0.04 Baso # (Auto) 0.02 Immature Gran # (Auto) 0.05 Sodium 136 Potassium 3.4 L Chloride 103 Carbon Dioxide 29 Anion Gap 4 BUN 21 Creatinine 1.06 Est Cr Clr Drug Dosing 128.0 Est GFR ( Amer) 91.8 Est GFR (Non-Af Amer) 79.2 BUN/Creatinine Ratio 19.8 Glucose 117 H Calcium 8.7 Magnesium Streptococcus sp PCR Bld Cult ID Panel PCR Microbiology 08/28/22 12:30 Urine,Clean Catch Urine Culture - Preliminary No growth - Less than 1,000 colonies/mL, Final report to follow. 08/27/22 04:26 Blood Aerobic Blood Culture - Final Group G Beta Strep 08/27/22 04:26 Blood Anaerobic Blood Culture - Final Group G Beta Strep 08/27/22 04:00 Blood Aerobic Blood Culture - Preliminary No growth in Aerobic bottle after 48 hours. 08/27/22 04:00 Blood Anaerobic Blood Culture - Preliminary No growth in Anaerobic bottle after 48 hours.
[2022-08-29] MEDS ORDERED: OPTIRAY 350 100ml IV ONE (15:54)
[2022-08-29] MEDS: RIVAROXABAN 20 MG TAB PO SCH (16:22)
--- NOTE | 2022-08-29 16:34 | CT Scan Report ---
CT SCAN OF THE LEFT TIBIA AND FIBULA WITH IV CONTRAST CLINICAL HISTORY: Cellulitis. COMPARISON STUDY: No priors. TECHNIQUE: CT scan of the left tibia and fibula is performed from the distal femur to the ankle follo wing the IV administration of 100 cc of Optiray 350. Images were reviewed in the axial, sagittal, and coronal planes. IV contrast was administered without complication. A dose lowering technique was uti lized adhering to the principles of ALARA. Note that interpretation is suboptimal without plain film correlate. CT DOSE: 348.26 mGy.cm FINDINGS: The skeletal structures are osteopenic. There is no evidence of tibial or fibular fracture. No bony erosion or periostitis is identified. The knee and ankle joints are grossly maintained. A kn ee joint effusion is partially visualized. There is no evidence of lytic or blastic lesion. Superfici al and deep soft tissue edema is present throughout the left lower extremity with subcutaneous fluid. No organized/drainable fluid collection is seen, typical for abscess. There is no soft tissue gas id entified. Generalized atrophy is noted in the regional musculature. The Achilles tendon is intact as visualized. The regional vessels are patent. A hyperdense fluid collection along the medial aspect of the ankle and hindfoot measures approximately 7 x 2.5 cm. IMPRESSION: 1. No acute bony abnormality is seen involving the left tibia or fibula. 2. Diffuse superficial and deep soft tissue edema is consistent with reported history of cellulitis. There is no organized/drainable fluid collection to indicate abscess. 3. A complex/hyperdense collection along the medial aspect of the ankle/hindfoot may represent a kimberly eric. Correlate clinically. 4. There is no soft tissue gas is seen. ACT 112: Negative or not required by law. Dictated: 08/29/2022 4:12 PM Transcribed: 08/29/2022 4:29 PM Brian [id number] [email or web address] Electronically signed by: Yong Le M.D. 08/29/2022 4:33 PM
[2022-08-29] MEDS: METOPROLOL SUCC 50MG EXT REL TAB PO SCH (20:06)
--- NOTE | 2022-08-30 07:37 | Hospitalist Progress Note ---
Date of Service August 30, 2022 Assessment & Plan (1) Septicemia: Plan: 52 yo WM who presented with acute sepsis syndrome d/t bacteremia UA not infected, biofire NEGATIVE Lyme IgM w/ WB reflex pending Remains on Rocephin (start date 08/28) Blood cx - 2/4 tubes reported positive for GPC in chains (likely strep species) Final is Group G Strep which is sensitive to Rocephin WBC wnl 7.1k Fevers resolving, temp 37.7c yesterday (last fever 38.4C @4am on 08/29) Repeat bcx NGTD after 24 hours ECHO w/o endocarditis, ID rec CAN -- cards consulted NPO at midnight for CAN ID consulted and following *mod-high risk (2) Left leg cellulitis: Plan: Believe this to be driving source of his bacteremia Treatment as outlined above Erythema marked, within markings Elevation CT w/o abscess/fluid collection Continue abx as above and monitor response (3) Atrial fibrillation: Plan: Rate controlled Previously on fleccanide, discontineud by cardiology remains on metorolol 100mg daily, xarelto 20mg K 3.4, 40meq provided 08/29 Will check labs today, including mag to keep k ~4, mag ~2 and additional replacement as needed Cardiology consulted, planning to likely initiate Tikosyn while inpatient and will need continued monitoring inpatient -- appreciate assistance of note, prior lipid panel w/ TRG 214/chol 201/LDL 201 -- ideally should be on statin therapy, can f/u outpatient with PCP vs cards regarding such (4) Hypokalemia: Plan: Potassium chloride 40meq po x1 ordered monitor mag monitor levels in AM (5) Hypertension: Plan: BP stable 136/75 Continues on metoprolol, amlodipine resumed Monitor (6) Morbid obesity: Plan: With JANN, on cpap at home May bring in own cpap for use Strongly recommend weight loss Plan continued inpatient stay cards consulted -- possible starting Tikosyn in place of fleccanide NPO at midnight for CAN tomorrow w/ Dr Lei Monitor repeat cultures Admission and Anticipated Discharge Date Admission Date: August 27, 2022 Supervising Physician Co-Signing Physician Notes The patient was not seen by me. The chart was reviewed. Case discussed with MARLIN Albert. Agree with assessment and plan Subjective eval this morning, doing alright LLE marking, erythema within markings. remains on abx, planning for CAN for tomorrow to ensure no vegetation. Dr Santo to see patient today, he has been off his flecainide, states he had Tikosyn discussed in past, however will await eval by cardiology as will require additional monitoring/EKGs once initiated. No fever/chills, chest pain, palpitations, shortness of breath at present. Questions/concerns addressed at this time. Physical Exam 2 Physical Exam: GENERAL: 52 yo male sitting in bed, morbidly obese, NAD HEENT: head normocephalic, atraumatic, mmm, slight JVD Resp: CTA, diminished in the bases, no w/c, on room air CV: irregularly irregular (rates 80-90s on telemetry), 1-2+ b/l LE edema, LLE>RLE with erythema/warmth c/w cellulitis, within markings, calves nontender, pulses palpable, no draining lesion, crusted scabs noted GI: +BS, obese, soft/NT EXTREMITIES: B/L LE 1-2+ pitting edema, L>R SKIN: Erythema and edema of LLE, multiple small scabs/excoriations Psych: AOx3, pleasant and cooperative Results & Data Results & Data ([facility]) Vital Signs (Past 12 Hours) Vital Signs Temp Pulse Pulse Resp BP Pulse Ox O2 Del Method 08/30/22 03:08 37.3 C 92 H 18 136/83 92 Room Air 08/29/22 22:00 93 H 08/29/22 23:07 37.7 C H 90 18 119/73 94 Room Air 08/29/22 20:00 Room Air 08/29/22 19:49 36.8 C 105 H 18 128/75 94 Room Air Laboratory Results 08/30/22 08/30/22 Range/Units 07:42 07:42 WBC 7.14 (4.8-10.8) K/ul RBC 4.26 L (4.70-6.10) M/uL Hgb 13.1 L (14.0-18.0) g/dl Hct 38.6 L (42.0-52.0) % MCV 90.6 (80.0-100.0) fL MCH 30.8 (25.0-34.0) pg MCHC 33.9 (32.0-36.0) g/dL RDW Std Deviation 46.9 H (36.4-46.3) fL RDW Coeff of Romario 14.0 (11.5-14.5) % Plt Count 198 (130-400) K/uL MPV 10.1 (9.4-12.4) fL Sodium 136 (136-145) mmol/L Potassium 3.4 L (3.5-5.1) mmol/L Chloride 103 (98-107) mmol/L Carbon Dioxide 29 (21-32) mmol/L Anion Gap 4 (3-11) BUN 15 (6-23) mg/dl Creatinine 0.87 (0.6-1.4) mg/dl Est Cr Clr Drug Dosing 156.0 ml/min Est GFR ( Amer) 113.4 ml/min Est GFR (Non-Af Amer) 97.8 ml/min BUN/Creatinine Ratio 17.2 (10-20) Glucose 106 H (70-99(Fasting)) mg/dl Calcium 8.7 (8.5-10.1) mg/dl Magnesium 2.0 (1.7-2.4) mg/dl Diagnostic Findings Lower Extremity CT 08/29/22 14:37 CT SCAN OF THE LEFT TIBIA AND FIBULA WITH IV CONTRAST CLINICAL HISTORY: Cellulitis. COMPARISON STUDY: No priors. TECHNIQUE: CT scan of the left tibia and fibula is performed from the distal femur to the ankle following the IV administration of 100 cc of Optiray 350. Images were reviewed in the axial, sagittal, and coronal planes. IV contrast was administered without complication. A dose lowering technique was utilized adhering to the principles of ALARA. Note that interpretation is suboptimal without plain film correlate. CT DOSE: 348.26 mGy.cm FINDINGS: The skeletal structures are osteopenic. There is no evidence of tibial or fibular fracture. No bony erosion or periostitis is identified. The knee and ankle joints are grossly maintained. A knee joint effusion is partially visualized. There is no evidence of lytic or blastic lesion. Superficial and deep soft tissue edema is present throughout the left lower extremity with subcutaneous fluid. No organized/drainable fluid collection is seen, typical for abscess. There is no soft tissue gas identified. Generalized atrophy is noted in the regional musculature. The Achilles tendon is intact as visualized. The regional vessels are patent. A hyperdense fluid collection along the medial aspect of the ankle and hindfoot measures approximately 7 x 2.5 cm. IMPRESSION: 1. No acute bony abnormality is seen involving the left tibia or fibula. 2. Diffuse superficial and deep soft tissue edema is consistent with reported history of cellulitis. There is no organized/drainable fluid collection to indicate abscess. 3. A complex/hyperdense collection along the medial aspect of the ankle/hindfoot may represent a hematoma. Correlate clinically. 4. There is no soft tissue gas is seen. ACT 112: Negative or not required by law. Dictated: 08/29/2022 4:12 PM Transcribed: 08/29/2022 4:29 PM Brian [id number] [email or web address] Electronically signed by: Yong Le M.D. 08/29/2022 4:33 PM PG Care Time/CCT Total # of Minutes Spent Total Time Spent with Patient: Total time spent is greater than 50% in coordination of care (as documented) at patient's floor/unit and/or counseling patient: Coding Level of Care Code 84593 SUB INP/OBS CARE 350MIN Diagnoses Septicemia A41.9 Left leg cellulitis L03.116 Atrial fibrillation I48.11 Atrial fibrillation type: longstanding persistent Hypokalemia E87.6 Hypertension I10 Hypertension type: primary hypertension Morbid obesity E66.01 (3) Atrial fibrillation Atrial fibrillation type: longstanding persistent Qualified Code(s): I48.11 - Longstanding persistent atrial fibrillation (5) Hypertension Hypertension type: primary hypertension Qualified Code(s): I10 - Essential (primary) hypertension
[2022-08-30 08:23] LABS: Hematocrit (blood only) 38.6 % (42.0-52.0); Hemoglobin 13.1 g/dl (14.0-18.0); Mean Corpuscular Hemoglobin 30.8 pg (25.0-34.0); Mean Corpuscular Hgb Conc 33.9 g/dL (32.0-36.0); Mean Corpuscular Volume 90.6 fL (80.0-100.0); Mean Platelet Volume 10.1 fL (9.4-12.4); Platelet Count 198 K/uL (130-400); RDW Standard Deviation 46.9 fL (36.4-46.3); Red Blood Count 4.26 M/uL (4.70-6.10); White Blood Count 7.14 K/ul (4.8-10.8)
[2022-08-30] MEDS: cefTRIAXone SODIUM 2,000 MG in DEXTROSE 5% 50 ML IV SCH (08:26)
[2022-08-30] MEDS: amLODIPine BESYLATE 5 MG TAB PO SCH (08:26)
[2022-08-30 08:39] LABS: BUN Creatinine Ratio 17.2 (10-20); Calcium 8.7 mg/dl (8.5-10.1); Est GFR (African American) 113.4 ml/min; Est GFR (Non-African American) 97.8 ml/min; Potassium 3.4 mmol/L (3.5-5.1)
[2022-08-30] MEDS ORDERED: POTASSIUM CHLORIDE CRTAB 20 MEQ TABCR PO STA (08:56)
--- NOTE | 2022-08-30 12:54 | Infectious Disease Progress Nt ---
Date of Service August 30, 2022 Assessment & Plan (1) Septicemia: Plan: Problem List Fevers, improved BHS, Group G bacteremia 08/27, 3 Cultures are in lab LLE Cellulitis 52 yo M with h/o HTN and Afib s/p cardioversion on 08/15/22 but felt himself go back in afib 48 hours who was admitted for sepsis. ID consulted for antibiotic management. Patient states in [facility] until a few days prior to admission. He developed a fever and generalized malaise 2 days [employer]. He noted a small lesion on left lower leg a few weeks ago. He scratched this area. Area noted to be tender. Does not recall trauma. Partner positive w/covid approx 3 weeks [employer]. He denies diarrhea, cough, congestion. On admission he was febrile to 39.1C and tachycardia, mildly hypoxic. Initial Labs notable for leukocytosis to 12.9 and a positive lactate of 2.3 and elevated procalcitonin of 1.24. He underwent CTs of the chest, abdomen, and pelvis without acute findings. Given concern for sepsis he was started on empiric Vancomycin and Cefepime. 08/27 blood cultures are growing BHS, group G in 2/4 bottles ( PCN SUMAN <0.03). 2DE limited views but no obvious vegetation. CT leg 08/29 no organized abscess Discussion: Suspect his LLE is source for strep however he continues to have ongoing fevers. I agree a CAN would be helpful to rule out seeding to valves in lieu of morbid obesity. He is at risk for circulatory disease and his LLE will take a longer duration to improve given this. (2) Bacteremia: (3) Left leg cellulitis: (4) Paroxysmal A-fib: Plan -C/W Ceftriaxone 2G IV Daily for now -CAN -Repeat blood culture follow I discussed with primary team. ID will follow with you. Admission and Anticipated Discharge Date Admission Date: August 27, 2022 Subjective Subsequent visit was provided via telemedicine using two-way real-time interactive telecommunication between the patient and the telemedicine provider. For the duration of the visit, the provider was performing the assessment from a different facility than the patient. This includesuse of bluetooth stethoscope forauscultationperformed by the telepresenter that the telemedicine provider can hear if described in the physical exam. Car Sander contact information: Please call [facility] . (Phone Number For Physician Use Only) After establishing a telemedicine visit, patient was: Patient was verified with two unique identifiers, Patient/authorized rep acknowledged consent and understanding and Gave permission to continue telehealth session Time Spent with Patient: Subsequent => 35 min 24 hours: CT leg without gas or organized abscess Afebrile WBC normalized Patient off oxygen Feels leg is unchanged Physical Exam Physical Exam: NAD LLE cellulitis slightly improved Results & Data ([facility]) Vital Signs (Past 12 Hours) Vital Signs Temp Pulse Resp BP Pulse Ox O2 Del Method 08/30/22 11:40 37.0 C 93 H 18 136/75 93 Room Air 08/30/22 10:00 Room Air 08/30/22 07:48 36.8 C 94 H 18 126/71 93 Room Air 08/30/22 03:08 37.3 C 92 H 18 136/83 92 Room Air Laboratory Results Short CBC 08/30/22 Range/Units 07:42 WBC 7.14 (4.8-10.8) K/ul Hgb 13.1 L (14.0-18.0) g/dl Hct 38.6 L (42.0-52.0) % Plt Count 198 (130-400) K/uL BMP 08/30/22 07:42 Sodium 136 Potassium 3.4 L Chloride 103 Carbon Dioxide 29 BUN 15 Creatinine 0.87 Glucose 106 H Calcium 8.7 Microbiology 08/29/22 09:06 Blood Aerobic Blood Culture - Preliminary No growth in Aerobic bottle after 24 hours. 08/29/22 09:06 Blood Anaerobic Blood Culture - Preliminary No growth in Anaerobic bottle after 24 hours. 08/29/22 09:15 Blood Aerobic Blood Culture - Preliminary No growth in Aerobic bottle after 24 hours. 08/29/22 09:15 Blood Anaerobic Blood Culture - Preliminary No growth in Anaerobic bottle after 24 hours. 08/28/22 12:30 Urine,Clean Catch Urine Culture - Final No growth - less than 1,000 colonies/mL. 08/27/22 04:26 Blood Aerobic Blood Culture - Final Group G Beta Strep 08/27/22 04:26 Blood Anaerobic Blood Culture - Final Group G Beta Strep 08/27/22 04:00 Blood Aerobic Blood Culture - Preliminary No growth in Aerobic bottle after 48 hours. 08/27/22 04:00 Blood Anaerobic Blood Culture - Preliminary No growth in Anaerobic bottle after 48 hours.
--- NOTE | 2022-08-30 14:59 | Cardiology Progress Note ---
Date of Service August 30, 2022 Assessment & Plan (1) Atrial fibrillation: Plan 1. Atrial fibrillation: He has had recurrence of his atrial fibrillation quickly after cardioversion on flecainide 200 mg twice a day. That has been discontinued for lack of efficacy. His last dose was about 36 hours ago. I have discussed options with him which include other antiarrhythmic agents (those being Tikosyn or amiodarone), versus ablation. At this point we would like to try one other agent and I am reluctant to use amiodarone. I am going to start Tikosyn. Since he has to be in the hospital for 3 days after starting Tikosyn this is a good time to do it. Admission and Anticipated Discharge Date Admission Date: August 27, 2022 Subjective He is feeling well today, much better than at home. He has no sensation of his atrial fibrillation although he was somewhat aware of it and feels that he went back into atrial fibrillation shortly after cardioversion. Physical Exam Physical Exam: Constitutional: Alert, cooperative and in no distress. HEENT: Unremarkable Neck: No jugular venous distention, carotid pulses are irregular but otherwise normal and equal bilaterally without bruits. Pulmonary: Clear to auscultation bilaterally. Cardiac: Irregular rhythm with no murmur, gallop or rub. Abdomen: Soft, nontender with normal bowel sounds. Extremities: No edema. Distal pulses intact. Neurologic: No focal findings. Gait is steady. Skin: No rash, ecchymoses or petechiae. Results & Data ([facility]) Vital Signs (Past 12 Hours) Vital Signs Temp Pulse Resp BP Pulse Ox O2 Del Method 08/30/22 14:39 37.1 C 84 18 146/84 H 93 Room Air 08/30/22 11:40 37.0 C 93 H 18 136/75 93 Room Air 08/30/22 10:00 Room Air 08/30/22 07:48 36.8 C 94 H 18 126/71 93 Room Air 08/30/22 03:08 37.3 C 92 H 18 136/83 92 Room Air Laboratory Results CBC 08/30/22 Range/Units 07:42 WBC 7.14 (4.8-10.8) K/ul RBC 4.26 L (4.70-6.10) M/uL Hgb 13.1 L (14.0-18.0) g/dl Hct 38.6 L (42.0-52.0) % Plt Count 198 (130-400) K/uL Comprehensive Metabolic Panel 08/30/22 Range/Units 07:42 Sodium 136 (136-145) mmol/L Potassium 3.4 L (3.5-5.1) mmol/L Chloride 103 (98-107) mmol/L Carbon Dioxide 29 (21-32) mmol/L BUN 15 (6-23) mg/dl Creatinine 0.87 (0.6-1.4) mg/dl Glucose 106 H (70-99(Fasting)) mg/dl Calcium 8.7 (8.5-10.1) mg/dl Intake and Output 08/29/22 08/30/22 08/30/22 22:59 06:59 14:59 Intake Total 400 / 950 290 / 290 Balance 400 / 949 290 / 290 Intake: IV 70 / 70 cefTRIAXone SODIUM 2,000 mg In 70 / 70 Dextrose 5% 50 ml @ 100 mls/hr IV DAILY [facility] Rx#:[id number] Oral 400 / 880 220 / 220 Other: # Unmeasured Voids 2 Weight 178 kg 178 kg Weight Measurement Method Standing Scale PG Care Time/CCT Total # of Minutes Spent Total Time Spent with Patient: Total time spent is greater than 50% in coordination of care (as documented) at patient's floor/unit and/or counseling patient: Coding Level of Care Code 98361 SUB INP/OBS CARE 2/35MIN Diagnoses Atrial fibrillation I48.19 Atrial fibrillation type: persistent (not longstanding) (1) Atrial fibrillation Atrial fibrillation type: persistent (not longstanding) Qualified Code(s): I48.19 - Other persistent atrial fibrillation
[2022-08-30] MEDS: DOFETILIDE 125 MCG CAPSULE PO SCH ×2 (16:09→20:38)
[2022-08-30] MEDS: RIVAROXABAN 20 MG TAB PO SCH (16:10)
[2022-08-30] MEDS: METOPROLOL SUCC 50MG EXT REL TAB PO SCH (20:38)
[2022-08-31 02:10] LABS: BUN Creatinine Ratio 15.3 (10-20); Calcium 8.2 mg/dl (8.5-10.1); Creatinine Clr Calc Pharmacy 159.7 ml/min; Est GFR (African American) 114.5 ml/min; Est GFR (Non-African American) 98.8 ml/min; Magnesium 1.9 mg/dl (1.7-2.4); Potassium 3.5 mmol/L (3.5-5.1)
[2022-08-31] MEDS ORDERED: MAGNESIUM SULFATE / D5W 1 GM/100 ML BAG IV ONE ×2 (04:22→07:54)
[2022-08-31] MEDS ORDERED: POTASSIUM CHLORIDE CRTAB 20 MEQ TABCR PO STA ×2 (04:22→07:54)
[2022-08-31 07:07] LABS: Basophils # (auto) 0.02 K/uL (0-0.2); Basophils % (auto) 0.3 %; Eosinophils # (auto) 0.15 K/uL (0-0.50); Eosinophils % (auto) 2.2 %; Hematocrit (blood only) 37.3 % (42.0-52.0); Hemoglobin 12.7 g/dl (14.0-18.0); Immature Granulocytes # (auto) 0.04 K/uL (0.01-0.20); Immature Granulocytes % (auto) 0.6 %; Lymphocytes # (auto) 0.97 K/uL (1.2-3.4); Lymphocytes % (auto) 14.3 %; Mean Corpuscular Hemoglobin 30.6 pg (25.0-34.0); Mean Corpuscular Volume 89.9 fL (80.0-100.0); Monocytes # (auto) 0.85 K/uL (0.11-0.59); Monocytes % (auto) 12.5 %; Neutrophils # (auto) 4.76 K/uL (1.40-6.50); Neutrophils % (auto) 70.1 %; Platelet Count 204 K/uL (130-400); RDW Coefficient of Variation 13.7 % (11.5-14.5); RDW Standard Deviation 45.5 fL (36.4-46.3); Red Blood Count 4.15 M/uL (4.70-6.10); White Blood Count 6.79 K/ul (4.8-10.8)
--- NOTE | 2022-08-31 07:15 | Anesthesiology Consultation ---
Date of Service August 31, 2022 Assessment & Plan Chart Review Chart Review: Acceptable Risk for Surgery and Patient NOT seen in Pre Admission Testing Consults Requested none ASA ASA3 Proposed Anesthesia Anesthesia Type: MAC Risk / Benefits Reviewed With: PT / POA / Parent / Guardian, Accepts Plan and Informed Consent Obtained History Surgery Operation Date: 08/31/22 07:15 Proposed Procedures p Transesophageal Echo - Tereso Lei MD Height/Weight Height: 5 ft 9 in Weight: 175.5 kg Allergies Allergy/AdvReac Type Severity Reaction Status Date / Time No Known Drug Allergies Allergy Unknown Verified 08/27/22 07:14 Medications Home Medications Medication Instructions Recorded Confirmed Last Taken multivitamin (Multiple Vitamins 1 tab PO QPM 06/23/21 08/27/22 08/26/22 tablet) amlodipine 5 mg tablet 10 mg PO QAM #180 tabs 07/26/22 08/27/22 08/26/22 metoprolol succinate 100 mg 100 mg PO PM #90 tabs 07/26/22 08/27/22 08/26/22 tablet,extended release 24 hr flecainide 100 mg tablet 200 mg PO Q12H #120 tabs 07/28/22 08/27/22 08/26/22 rivaroxaban 20 mg tablet (Xarelto) 20 mg PO PM #90 tabs 08/02/22 08/27/2208/26 Active Medications Generic Name Dose Route Start Last Admin Trade Name Freq PRN Reason Stop Dose Admin Acetaminophen 1,000 mg 08/28/22 10:27 08/29/22 13:09 Acetaminophen 500 Mg Tab PO 09/26/22 11:27 1,000 mg TID PRN Administration pain/fever Amlodipine Besylate 5 mg 08/29/22 13:00 08/30/22 08:26 Amlodipine Besylate 5 Mg Tab PO 09/28/22 12:59 5 mg QAM ALVINO Administration Dofetilide 500 mcg 08/30/22 15:45 08/30/22 20:38 Dofetilide 125 Mcg Capsule PO 09/29/22 15:44 500 mcg BID ALVINO Administration Ceftriaxone Sodium 2,000 mg/ 70 mls @ 100 mls/hr 08/28/22 11:00 08/30/22 09:08 Dextrose IV 09/11/22 10:59 Infused DAILY ALVINO Infusion Protocol Metoprolol Succinate 100 mg 08/27/22 21:00 08/30/22 20:38 Metoprolol Succ 50mg Ext Rel Tab PO 09/26/22 20:59 100 mg HS ALVINO Administration Rivaroxaban 20 mg 08/27/22 16:30 08/30/22 16:10 Rivaroxaban 20 Mg Tab PO 09/26/22 16:29 20 mg QDD ALVINO Administration NPO Date Last Intake of Fluids: 08/30/22 Time Last Intake of Fluids: 23:59 Date Last Intake of Solids: 08/30/22 Time Last Intake of Solids: 23:59 Past Medical History Medical History Atrial fibrillation 2019 > Xarelto Hernia "Not repaired yet" History of COVID-11 October 2020 Hypertension Hypertension Morbid obesity Sleep apnea CPAP Exercise / Class Metabolic Activity III < 4 Walking/Shop/Light housework Past Family History Family History Uncle Diabetes Sister Kidney stones Mother Cerebral aneurysm dec at 70 Father Lung cancer dec at 53 Other No family history of adverse response to anesthesia Denies family history of Ovarian cancer Prostate cancer Myocardial infarction Breast cancer Colorectal cancer Past Surgical History Surgical History History of cardioversion Jan 2020 > [facility] & March 2022 at [facility] (successful for about 10 days) History of colonoscopy History of oral surgery History of tonsillectomy [place] teeth extracted under local Past Anesthesia History No Hx of Anesthesia Complications and No Family Hx of Anesthesia Complications History of PONV No Hx of PONV and No Hx of Motion Sickness Social History Smoking Status: Never smoker Do You Dip or Chew Tobacco: No Hx Alcohol Use: Yes Alcohol type: beer, wine and hard liquor alcohol intake frequency: a few times a week Hx Substance Use: No substance use type: does not use Review of Systems ROS Unobtainable: All systems reviewed & are unremarkable except as noted in HPI & below Constitutional: as per Subjective / HPI Eyes: as per Subjective / HPI Ear, Nose, Mouth, Throat: as per Subjective / HPI Respiratory: as per Subjective / HPI Cardiovascular: + dyspnea on exertion Gastrointestinal: as per Subjective / HPI Genitourinary (Male): + as per Subjective / HPI Musculoskeletal: as per Subjective / HPI Integumentary: as per Subjective / HPI Neurologic: as per Subjective / HPI Psychiatric: as per Subjective / HPI Endocrine: as per Subjective / HPI Hematologic / Lymphatic: as per Subjective / HPI Physical Exam Vital Signs Last Vital Signs Temp 37.4 C 08/31/22 03:52 Pulse 70 08/31/22 03:52 Resp 20 08/31/22 03:52 BP 155/82 H 08/31/22 03:52 Pulse Ox 92 08/31/22 03:52 O2 Del Method Room Air 08/31/22 03:52 O2 Flow Rate 2 08/29/22 07:25 Constitutional WD/WN, vitals as above + morbidly obese Eyes PERRL, conjunctivae normal, anicteric sclerae ENMT external ear and nose normal, oropharynx normal Mouth: no dentition abnormality Thyromental Distance: > or= 3.5 Finger Breadths Mallampati Class: I Neck trachea midline, no thyromegaly Respiratory normal respiratory effort, lungs clear to auscultation Cardiovascular Rate/Rhythm: regular rate and regular rhythm (irregular) Musculoskeletal Head/Neck/Chest: normocephalic and head atraumatic Spine: normal cervical ROM and no pain with cervical ROM Extremities: extremities normal to inspection and strength 5/5 throughout; full ROM of extremities Skin no rashes, warm and dry Neurologic moves all extremities Psychiatric A+Ox3, euthymic affect Testing Laboratory Results 08/31/22 06:29 Urine Color Dark Yellow 08/27/22 10:24 Urine Appearance Clear (Clear) 08/27/22 10:24 Urine pH 5.0 (4.5-7.5) 08/27/22 10:24 Ur Specific [place] 1.035 (1.000-1.030) H 08/27/22 10:24 Urine Protein 1+ (Negative) H 08/27/22 10:24 Urine Glucose (UA) Negative (Negative) 08/27/22 10:24 Urine Ketones Trace (Negative) H 08/27/22 10:24 Urine Nitrite Negative (Negative) 08/27/22 10:24 Ur Leukocyte Esterase Negative (Negative) 08/27/22 10:24 Urine WBC (Auto) 1-5 /hpf (0-5) 08/27/22 10:24 Urine RBC (Auto) 0-4 /hpf (0-4) 08/27/22 10:24 U Hyaline Cast (Auto) 1-5 /lpf (0-5) 08/27/22 10:24 U Epithel Cells (Auto) 10-20 /lpf (0-5) H 08/27/22 10:24 Urine Bacteria (Auto) Negative (Negative) 08/27/22 10:24 08/29/22 09:06 Aerobic Blood Culture - Preliminary Blood No growth in Aerobic bottle after 24 hours. Anaerobic Blood Culture - Preliminary No growth in Anaerobic bottle after 24 hours. 08/29/22 09:15 Aerobic Blood Culture - Preliminary Blood No growth in Aerobic bottle after 24 hours. Anaerobic Blood Culture - Preliminary No growth in Anaerobic bottle after 24 hours. 08/28/22 12:30 Urine Culture - Final Urine,Clean Catch No growth - less than 1,000 colonies/mL. 08/27/22 04:26 Aerobic Blood Culture - Final Blood Group G Beta Strep Anaerobic Blood Culture - Final Group G Beta Strep 08/27/22 04:00 Aerobic Blood Culture - Preliminary Blood No growth in Aerobic bottle after 48 hours. Anaerobic Blood Culture - Preliminary No growth in Anaerobic bottle after 48 hours.
[2022-08-31] MEDS ORDERED: BENZOCAINE/TETRACAIN/BUTAM 50 APPLN/5 GM CAN EXT ONE (07:16)
[2022-08-31 07:22] LABS: Calcium 8.2 mg/dl (8.5-10.1); Creatinine Clr Calc Pharmacy 179.4 ml/min; Est GFR (African American) 120.5 ml/min; Magnesium 1.9 mg/dl (1.7-2.4); Potassium 3.4 mmol/L (3.5-5.1)
--- NOTE | 2022-08-31 07:45 | Anesthesiology Progress Note ---
Date of Service August 31, 2022 Anesthesia Post Procedure Vital Signs Vital Signs: Temp Pulse Pulse Resp BP BP Pulse Ox 08/31/22 07:39 93 H 16 141/95 H 96 08/31/22 07:10 94 H 18 168/106 H 94 08/31/22 03:52 37.4 C 70 20 155/82 H 92 08/30/22 22:01 96 H 08/30/22 23:07 37.7 C H 95 H 20 147/87 H 92 08/30/22 20:00 08/30/22 19:45 37.1 C 100 H 20 142/71 H 92 08/30/22 14:39 37.1 C 84 18 146/84 H 93 08/30/22 11:40 37.0 C 93 H 18 136/75 93 08/30/22 10:00 08/30/22 07:48 36.8 C 94 H 18 126/71 93 O2 Del Method 08/31/22 07:39 Room Air 08/31/22 07:10 Room Air 08/31/22 03:52 Room Air 08/30/22 22:01 08/30/22 23:07 Room Air 08/30/22 20:00 Nasal Cannula 08/30/22 19:45 Room Air 08/30/22 14:39 Room Air 08/30/22 11:40 Room Air 08/30/22 10:00 Room Air 08/30/22 07:48 Room Air Transfer of Care Handoff Completed per policy Notes Mental Status: alert / awake / arousable and participated in evaluation Patient Amnestic to Procedure: Yes Nausea / Vomiting: adequately controlled Pain: adequately controlled Airway Patency, RR, SpO2: stable & adequate BP & HR: stable & adequate Hydration State: stable & adequate Anesthetic Complications: no major complications apparent and Pt Satisfied with anesthetic care
--- NOTE | 2022-08-31 07:54 | Hospitalist Progress Note ---
Date of Service August 31, 2022 Assessment & Plan (1) Septicemia: Plan: 52 yo WM who presented with acute sepsis syndrome d/t bacteremia UA not infected, biofire NEGATIVE Lyme IgM w/ WB reflex pending Remains on Rocephin (start date 08/28) Blood cx - 2/4 tubes reported positive for GPC in chains (likely strep species) Final is Group G Strep which is sensitive to Rocephin WBC wnl 6.7k Fevers resolving, temp 37.7c this morning (last fever 38.4C @4am on 08/29) Repeat bcx NGTD after 48 hours ECHO w/o endocarditis, ID rec CAN -- cards consulted -- done today, NO EVIDENCE FOR VEGETATION Reached back out to ID for continued recs given negative CAN and will cordinate w/ CM to arrange for abx. Remaining inpatient until Sunday as started Tikosyn last evening -- see below *mod-high risk (2) Left leg cellulitis: Plan: Believe this to be driving source of his bacteremia Treatment as outlined above Erythema marked, within markings Elevation CT w/o abscess/fluid collection Continue abx as above and monitor response (3) Atrial fibrillation: Plan: Rate controlled Previously on flecainide, discontinued by cardiology remains on metoprolol 100mg daily, xarelto 20mg Cards consulted Tikosyn initiated 08/29 will need to be inpatient x3 days -- further management for this per cards, monitoring on telemetry Per Dr Lei, can d/c once arrangements made/sunday and have patient come back for cardioversion next week Keep Mag/K replete -- additional PO Kcl/IV mag for today -- consider PO supplementation at d/c if repeats again low of note, prior lipid panel w/ TRG 214/chol 201/LDL 201 -- ideally should be on statin therapy, can f/u outpatient with PCP vs cards regarding such (4) Hypokalemia: Plan: Potassium chloride 40meq po x1 ordered monitor mag monitor levels in AM (5) Hypertension: Plan: BP stable 136/79 Continues on metoprolol, amlodipine Monitor (6) Morbid obesity: Plan: With JANN, on cpap at home May bring in own cpap for use Strongly recommend weight loss Plan continued inpatient stay on Tikosyn Reaching back out to ID for recs for abx at d/c and will give rx to CM once received Admission and Anticipated Discharge Date Admission Date: August 27, 2022 Supervising Physician Co-Signing Physician Notes The patient was not seen by me. The chart was reviewed. Case discussed with MARLIN Albert. Agree with assessment and plan Subjective eval after CAN, negative for vegetation sitting up in bed, no new issues. leg feeling back to normal, erythema improving proximally but still present distally. will continue to monitor. discussed will hopefully have home IV abx arranged w/ CM for tomorrow and will gain IV access at that time/touch base w/ ID. low grade temp 37.7C but denies feeling feverish. Last fever 38.4C 4am on 08/29. No chest pain/shortness of breath/palpitations. Hopefully will be able to dc sunday after tikosyn dosing and come back next week for cardioversion with cardiology. Questions/concerns addressed at this time. Physical Exam Physical Exam: GENERAL: 52 yo male sitting in bed, morbidly obese, NAD HEENT: head normocephalic, atraumatic, mmm, slight JVD Resp: CTA, diminished in the bases, no w/c, on room air CV: irregularly irregular (rates 80-90s on telemetry), 1-2+ b/l LE edema, LLE>RLE with erythema/warmth c/w cellulitis, within markings, calves nontender, pulses palpable, no draining lesion, crusted scabs noted GI: +BS, obese, soft/NT EXTREMITIES: B/L LE 1-2+ pitting edema, L>R SKIN: Erythema and edema of LLE, multiple small scabs/excoriations Psych: AOx3, pleasant and cooperative Results & Data Results & Data ([place]) Vital Signs (Past 12 Hours) Vital Signs Temp Pulse Pulse Resp BP BP Pulse Ox 08/31/22 07:39 93 H 16 141/95 H 96 08/31/22 07:10 94 H 18 168/106 H 94 08/31/22 03:52 37.4 C 70 20 155/82 H 92 08/30/22 22:01 96 H 08/30/22 23:07 37.7 C H 95 H 20 147/87 H 92 08/30/22 20:00 O2 Del Method 08/31/22 07:39 Room Air 08/31/22 07:10 Room Air 08/31/22 03:52 Room Air 08/30/22 22:01 08/30/22 23:07 Room Air 08/30/22 20:00 Nasal Cannula Laboratory Results 08/31/22 08/31/22 08/31/22 Range/Units 06:29 06:29 01:36 WBC 6.79 (4.8-10.8) K/ul RBC 4.15 L (4.70-6.10) M/uL Hgb 12.7 L (14.0-18.0) g/dl Hct 37.3 L (42.0-52.0) % MCV 89.9 (80.0-100.0) fL MCH 30.6 (25.0-34.0) pg MCHC 34.0 (32.0-36.0) g/dL RDW Std Deviation 45.5 (36.4-46.3) fL RDW Coeff of Romario 13.7 (11.5-14.5) % Plt Count 204 (130-400) K/uL MPV 10.0 (9.4-12.4) fL Immature Gran % (Auto) 0.6 % Neut % (Auto) 70.1 % Lymph % (Auto) 14.3 % [place] % (Auto) 12.5 % Eos % (Auto) 2.2 % Baso % (Auto) 0.3 % Neut # (Auto) 4.76 (1.40-6.50) K/uL Lymph # (Auto) 0.97 L (1.2-3.4) K/uL [place] # (Auto) 0.85 H (0.11-0.59) K/uL Eos # (Auto) 0.15 (0-0.50) K/uL Baso # (Auto) 0.02 (0-0.2) K/uL Immature Gran # (Auto) 0.04 (0.01-0.20) K/uL Sodium 137 137 (136-145) mmol/L Potassium 3.4 L 3.5 (3.5-5.1) mmol/L Chloride 104 103 (98-107) mmol/L Carbon Dioxide 27 28 (21-32) mmol/L Anion Gap 6 6 (3-11) BUN 12 13 (6-23) mg/dl Creatinine 0.75 0.85 (0.6-1.4) mg/dl Est Cr Clr Drug Dosing 179.4 159.7 ml/min Est GFR ( Amer) 120.5 114.5 ml/min Est GFR (Non-Af Amer) 104.0 98.8 ml/min BUN/Creatinine Ratio 16.0 15.3 (10-20) Glucose 107 H 106 H (70-99(Fasting)) mg/dl Calcium 8.2 L 8.2 L (8.5-10.1) mg/dl Magnesium 1.9 1.9 (1.7-2.4) mg/dl 08/30/22 08/30/22 Range/Units 07:42 07:42 WBC 7.14 (4.8-10.8) K/ul RBC 4.26 L (4.70-6.10) M/uL Hgb 13.1 L (14.0-18.0) g/dl Hct 38.6 L (42.0-52.0) % MCV 90.6 (80.0-100.0) fL MCH 30.8 (25.0-34.0) pg MCHC 33.9 (32.0-36.0) g/dL RDW Std Deviation 46.9 H (36.4-46.3) fL RDW Coeff of Romario 14.0 (11.5-14.5) % Plt Count 198 (130-400) K/uL MPV 10.1 (9.4-12.4) fL Immature Gran % (Auto) % Neut % (Auto) % Lymph % (Auto) % [place] % (Auto) % Eos % (Auto) % Baso % (Auto) % Neut # (Auto) (1.40-6.50) K/uL Lymph # (Auto) (1.2-3.4) K/uL [place] # (Auto) (0.11-0.59) K/uL Eos # (Auto) (0-0.50) K/uL Baso # (Auto) (0-0.2) K/uL Immature Gran # (Auto) (0.01-0.20) K/uL Sodium 136 (136-145) mmol/L Potassium 3.4 L (3.5-5.1) mmol/L Chloride 103 (98-107) mmol/L Carbon Dioxide 29 (21-32) mmol/L Anion Gap 4 (3-11) BUN 15 (6-23) mg/dl Creatinine 0.87 (0.6-1.4) mg/dl Est Cr Clr Drug Dosing 156.0 ml/min Est GFR ( Amer) 113.4 ml/min Est GFR (Non-Af Amer) 97.8 ml/min BUN/Creatinine Ratio 17.2 (10-20) Glucose 106 H (70-99(Fasting)) mg/dl Calcium 8.7 (8.5-10.1) mg/dl Magnesium 2.0 (1.7-2.4) mg/dl PG Care Time/CCT Total # of Minutes Spent Total Time Spent with Patient: Total time spent is greater than 50% in coordination of care (as documented) at patient's floor/unit and/or counseling patient: Coding Level of Care Code 68255 SUB INP/OBS CARE 3/50MIN Diagnoses Septicemia A41.9 Left leg cellulitis L03.116 Atrial fibrillation I48.11 Atrial fibrillation type: longstanding persistent Hypokalemia E87.6 Hypertension I10 Hypertension type: primary hypertension Morbid obesity E66.01 (3) Atrial fibrillation Atrial fibrillation type: longstanding persistent Qualified Code(s): I48.11 - Longstanding persistent atrial fibrillation (5) Hypertension Hypertension type: primary hypertension Qualified Code(s): I10 - Essential (primary) hypertension
[2022-08-31] MEDS ORDERED: PROPOFOL IV EMULSION 10 MG/ML 20 ML VIAL IV ONE (09:00)
[2022-08-31] MEDS ORDERED: LIDOCAINE 2% MPF LOCAL 5 ML VIAL INFIL ONE (09:00)
[2022-08-31] MEDS: amLODIPine BESYLATE 5 MG TAB PO SCH (09:05)
[2022-08-31] MEDS: cefTRIAXone SODIUM 2,000 MG in DEXTROSE 5% 50 ML IV SCH (09:09)
--- NOTE | 2022-08-31 10:41 | XCELERA ---
[id number]
--- NOTE | 2022-08-31 12:20 | Electrocardiogram Report ---
Test Reason : Blood Pressure : / mmHG Vent. Rate : 093 BPM Atrial Rate : 108 BPM P-R Int : 000 ms QRS Dur : 100 ms QT Int : 388 ms P-R-T Axes : 000 043 034 degrees QTc Int : 482 ms Atrial fibrillation Prolonged QT Abnormal ECG When compared with ECG of 27-AUG-2022 03:50, No significant change was found Confirmed by Tereso Lei ([id number]) on 08/31/2022 12:20:16 PM Referred By: REFERRED SELF Confirmed By:Tereso Lei
--- NOTE | 2022-08-31 12:21 | Electrocardiogram Report ---
Test Reason : Blood Pressure : / mmHG Vent. Rate : 102 BPM Atrial Rate : 156 BPM P-R Int : 000 ms QRS Dur : 116 ms QT Int : 390 ms P-R-T Axes : 000 032 021 degrees QTc Int : 508 ms Atrial fibrillation with rapid ventricular response Abnormal ECG When compared with ECG of 30-AUG-2022 18:10, No significant change was found Confirmed by Tereso Lei ([id number]) on 08/31/2022 12:20:58 PM Referred By: REFERRED SELF Confirmed By:Tereso Lei
--- NOTE | 2022-08-31 12:22 | Electrocardiogram Report ---
Test Reason : Blood Pressure : / mmHG Vent. Rate : 091 BPM Atrial Rate : 441 BPM P-R Int : 000 ms QRS Dur : 104 ms QT Int : 412 ms P-R-T Axes : 000 042 039 degrees QTc Int : 506 ms Atrial fibrillation Prolonged QT Abnormal ECG When compared with ECG of 30-AUG-2022 22:37, No significant change was found Confirmed by Tereso Lei ([id number]) on 08/31/2022 12:22:15 PM Referred By: REFERRED SELF Confirmed By:Tereso Lei
--- NOTE | 2022-08-31 12:26 | Electrocardiogram Report ---
Test Reason : Blood Pressure : / mmHG Vent. Rate : 085 BPM Atrial Rate : 072 BPM P-R Int : 000 ms QRS Dur : 108 ms QT Int : 400 ms P-R-T Axes : 000 037 032 degrees QTc Int : 476 ms Poor data quality, interpretation may be adversely affected Atrial fibrillation Abnormal ECG When compared with ECG of 31-AUG-2022 01:14, No significant change was found Confirmed by Tereso Lei ([id number]) on 08/31/2022 12:26:22 PM Referred By: REFERRED SELF Confirmed By:Tereso Lei
--- NOTE | 2022-08-31 14:06 | Infectious Disease Progress Nt ---
Date of Service August 31, 2022 Assessment & Plan (1) Septicemia: Plan: Problem List Fevers, improved BHS, Group G bacteremia 08/27, 08/29 Cultures are in lab LLE Cellulitis 52 yo M with h/o HTN and Afib s/p cardioversion on 08/15/22 but felt himself go back in afib 48 hours who was admitted for sepsis. ID consulted for antibiotic management. Patient states in [facility] until a few days prior to admission. He developed a fever and generalized malaise 2 days [employer]. He noted a small lesion on left lower leg a few weeks ago. He scratched this area. Area noted to be tender. Does not recall trauma. Partner positive w/covid approx 3 weeks [employer]. He denies diarrhea, cough, congestion. On admission he was febrile to 39.1C and tachycardia, mildly hypoxic. Initial Labs notable for leukocytosis to 12.9 and a positive lactate of 2.3 and elevated procalcitonin of 1.24. He underwent CTs of the chest, abdomen, and pelvis without acute findings. Given concern for sepsis he was started on empiric Vancomycin and Cefepime. 08/27 blood cultures are growing BHS, group G in 2/4 bottles ( PCN SUMAN <0.03). 2DE limited views but no obvious vegetation. CT leg 08/29 no organized abscess CAN negative Discussion: Suspect his LLE is source for strep however he continues to have ongoing fevers. I agree a CAN would be helpful to rule out seeding to valves in lieu of morbid obesity. He is at risk for circulatory disease and his LLE will take a longer duration to improve given this. Anticipate he will need 2 weeks from first negative blood cultures. (2) Bacteremia: (3) Left leg cellulitis: (4) Paroxysmal A-fib: Plan -C/W Ceftriaxone 2G IV Daily for now -08/29 Blood cultures are no growth to date, plan for 2 weeks through 09/12/22 with Ceftriaxone 2G IV daily -Weekly CBCD, CMP to his primary care physician -Midline placement I discussed with primary team and patient at bedside ID will s/o Please call with questions. Jennifer Virgen MD Infectious Diseases Admission and Anticipated Discharge Date Admission Date: August 27, 2022 Subjective Subsequent visit was provided via telemedicine using two-way real-time interactive telecommunication between the patient and the telemedicine provider. For the duration of the visit, the provider was performing the assessment from a different facility than the patient. This includesuse of bluetooth stethoscope forauscultationperformed by the telepresenter that the telemedicine provider can hear if described in the physical exam. [employer] contact information: Please call [facility] [phone]. (Phone Number For Physician Use Only) After establishing a telemedicine visit, patient was: Patient was verified with two unique identifiers, Patient/authorized rep acknowledged consent and understanding and Gave permission to continue telehealth session Time Spent with Patient: Subsequent => 35 min Physical Exam Physical Exam: NAD LLE Cellulitis improved Results & Data ([facility]) Vital Signs (Past 12 Hours) Vital Signs Temp Pulse Resp BP BP Pulse Ox O2 Del Method 08/31/22 10:49 37.7 C H 88 18 136/79 91 CPAP 08/31/22 10:00 Room Air 08/31/22 07:56 91 H 16 140/94 94 Room Air 08/31/22 07:39 93 H 16 141/95 H 96 Room Air 08/31/22 07:10 94 H 18 168/106 H 94 Room Air 08/31/22 03:52 37.4 C 70 20 155/82 H 92 Room Air Laboratory Results Laboratory Results - last 48 hr 08/30/22 08/30/22 08/31/22 07:42 07:42 01:36 WBC 7.14 RBC 4.26 L Hgb 13.1 L Hct 38.6 L MCV 90.6 MCH 30.8 MCHC 33.9 RDW Std Deviation 46.9 H RDW Coeff of Romario 14.0 Plt Count 198 MPV 10.1 Immature Gran % (Auto) Neut % (Auto) Lymph % (Auto) [place] % (Auto) Eos % (Auto) Baso % (Auto) Neut # (Auto) Lymph # (Auto) [place] # (Auto) Eos # (Auto) Baso # (Auto) Immature Gran # (Auto) Sodium 136 137 Potassium 3.4 L 3.5 Chloride 103 103 Carbon Dioxide 29 28 Anion Gap 4 6 BUN 15 13 Creatinine 0.87 0.85 Est Cr Clr Drug Dosing 156.0 159.7 Est GFR ( Amer) 113.4 114.5 Est GFR (Non-Af Amer) 97.8 98.8 BUN/Creatinine Ratio 17.2 15.3 Glucose 106 H 106 H Calcium 8.7 8.2 L Magnesium 2.0 1.9 08/31/22 08/31/22 06:29 06:29 WBC 6.79 RBC 4.15 L Hgb 12.7 L Hct 37.3 L MCV 89.9 MCH 30.6 MCHC 34.0 RDW Std Deviation 45.5 RDW Coeff of Romario 13.7 Plt Count 204 MPV 10.0 Immature Gran % (Auto) 0.6 Neut % (Auto) 70.1 Lymph % (Auto) 14.3 [place] % (Auto) 12.5 Eos % (Auto) 2.2 Baso % (Auto) 0.3 Neut # (Auto) 4.76 Lymph # (Auto) 0.97 L [place] # (Auto) 0.85 H Eos # (Auto) 0.15 Baso # (Auto) 0.02 Immature Gran # (Auto) 0.04 Sodium 137 Potassium 3.4 L Chloride 104 Carbon Dioxide 27 Anion Gap 6 BUN 12 Creatinine 0.75 Est Cr Clr Drug Dosing 179.4 Est GFR ( Amer) 120.5 Est GFR (Non-Af Amer) 104.0 BUN/Creatinine Ratio 16.0 Glucose 107 H Calcium 8.2 L Magnesium 1.9 Microbiology 08/29/22 09:15 Blood Aerobic Blood Culture - Preliminary No growth in Aerobic bottle after 48 hours. 08/29/22 09:15 Blood Anaerobic Blood Culture - Preliminary No growth in Anaerobic bottle after 48 hours. 08/29/22 09:06 Blood Aerobic Blood Culture - Preliminary No growth in Aerobic bottle after 48 hours. 08/29/22 09:06 Blood Anaerobic Blood Culture - Preliminary No growth in Anaerobic bottle after 48 hours. 08/28/22 12:30 Urine,Clean Catch Urine Culture - Final No growth - less than 1,000 colonies/mL. 08/27/22 04:26 Blood Aerobic Blood Culture - Final Group G Beta Strep 08/27/22 04:26 Blood Anaerobic Blood Culture - Final Group G Beta Strep 08/27/22 04:00 Blood Aerobic Blood Culture - Preliminary No growth in Aerobic bottle after 48 hours. 08/27/22 04:00 Blood Anaerobic Blood Culture - Preliminary No growth in Anaerobic bottle after 48 hours. Medications Administered Current Inpatient Medications Acetaminophen (Acetaminophen 500 Mg Tab) 1,000 mg PO TID PRN PRN Reason: pain/fever Stop: 09/26/22 11:27 Last Admin: 08/29/22 13:09 Dose: 1,000 mg Al Hydrox/Mg Hydrox/Simethicone (Aluminum/Magnesium Susp 30 Ml Udc) 30 ml PO Q6H PRN PRN Reason: Dyspepsia Stop: 09/26/22 11:27 Amlodipine Besylate (Amlodipine Besylate 5 Mg Tab) 5 mg PO QAM [facility] Stop: 09/28/22 12:59 Last Admin: 08/31/22 09:05 Dose: 5 mg Dofetilide (Dofetilide 125 Mcg Capsule) 500 mcg PO BID [facility] Stop: 09/29/22 15:44 Last Admin: 08/30/22 20:38 Dose: 500 mcg Ceftriaxone Sodium 2,000 mg/ (Dextrose) 70 mls @ 100 mls/hr IV DAILY [facility]; Protocol Stop: 09/11/22 10:59 Last Infusion: 08/31/22 10:06 Dose: Infused Magnesium Hydroxide (Magnesium Hydroxide Susp 30 Ml Udc) 30 ml PO Q6H PRN PRN Reason: Constipation Stop: 09/26/22 11:27 Metoprolol Succinate (Metoprolol Succ 50mg Ext Rel Tab) 100 mg PO HS [facility] Stop: 09/26/22 20:59 Last Admin: 08/30/22 20:38 Dose: 100 mg Rivaroxaban (Rivaroxaban 20 Mg Tab) 20 mg PO QDD [facility] Stop: 09/26/22 16:29 Last Admin: 08/30/22 16:10 Dose: 20 mg
--- NOTE | 2022-08-31 14:07 | Cardiology Progress Note ---
Date of Service August 31, 2022 Assessment & Plan (1) Bacteremia: Plan: Negative transesophageal echocardiogram. Antibiotic recommendations as per infectious disease consultation. (2) Paroxysmal A-fib: Plan: Tikosyn loading. Loading will be complete on 09/02/2022. Could be discharged home at that time with plans for subsequent outpatient electrical cardioversion. Admission and Anticipated Discharge Date Admission Date: August 27, 2022 Subjective Uneventful night. No complaints. Patient underwent transesophageal echocardiogram this morning which showed no evidence of valvular vegetation. Physical Exam 2 Physical Exam: No distress. Normotensive BP. Pulse 88 bpm and irregular. Skin: no ecchymoses or generalized lesions. Left leg with erythema from knee to ankle. HEENT: unremarkable. Neck: Jugular venous pulse mildly elevated, no carotid bruits. Lungs: clear. Cardiac: irregular rhythm, no obvious murmur or gallop. Abdomen: benign. Extremities: 1-2+ pretibial edema with left leg erythema as noted, pulses intact. Neurologic: normal affect and conversation, nonfocal. Results & Data ([facility]) Vital Signs (Past 12 Hours) Vital Signs Temp Pulse Resp BP BP Pulse Ox O2 Del Method 08/31/22 10:49 99.9 F H 88 18 136/79 91 CPAP 08/31/22 10:00 Room Air 08/31/22 07:56 91 H 16 140/94 94 Room Air 08/31/22 07:39 93 H 16 141/95 H 96 Room Air 08/31/22 07:10 94 H 18 168/106 H 94 Room Air 08/31/22 03:52 99.3 F 70 20 155/82 H 92 Room Air Laboratory Results Potassium 3.4, otherwise normal electrolytes, BUN 12, creatinine 0.75. Diagnostic Findings ECG showed atrial fibrillation with ventricular rate of 85 bpm, QTc in the 0.48 range. PG Care Time/CCT Total # of Minutes Spent Total Time Spent with Patient: Total time spent is greater than 50% in coordination of care (as documented) at patient's floor/unit and/or counseling patient: Coding Level of Care Code 86125 SUB INP/OBS CARE 3/50MIN Diagnoses Bacteremia R78.81 Paroxysmal A-fib I48.0
[2022-08-31] MEDS: RIVAROXABAN 20 MG TAB PO SCH (16:46)
[2022-08-31] MEDS: METOPROLOL SUCC 50MG EXT REL TAB PO SCH (20:04)
--- NOTE | 2022-08-31 20:12 | Communication Note ---
Date of Service: August 31, 2022 Was informed of 08/30 22:37 EKG result with atrial fibrillation, QTc 508. I placed dofetilide on hold. 08/31 01:13 EKG result with atrial fibrillation, QTC 506. I ordered BMP and Mg, which returned with K 3.5 and Mg 1.9. I subsequently ordered electrolyte repletion and repeat EKG at 06:14 with QTC 476. Review of hospitalist and cardiology progress notes from 08/31 indicates plan to continue dofetilide loading. Dofetilide remains on hold for now per EMR. I did reach out to grey washer about resuming dofetilide as per plan. Will continue to monitor pt at this time. ADDENDUM -I did speak with the pt's hospitalist and grey washer once more. Plan made to resume dofetilide now. I did speak with pharmacy and they are aware of 08/30-08/31 overnight events and plan to resume Tikosyn loading now. Dofetilide ordered to restart and EKG ordered for AM. Resident Activity Tracking Resident Involvement: Resident Care Provided Care Provided: Adult Hospital Medicine
[2022-08-31] MEDS: DOFETILIDE 125 MCG CAPSULE PO SCH (23:21)
[2022-09-01 06:45] LABS: Hematocrit (blood only) 36.7 % (42.0-52.0); Hemoglobin 12.4 g/dl (14.0-18.0); Mean Corpuscular Hemoglobin 30.6 pg (25.0-34.0); Mean Corpuscular Hgb Conc 33.8 g/dL (32.0-36.0); Mean Corpuscular Volume 90.6 fL (80.0-100.0); Mean Platelet Volume 9.8 fL (9.4-12.4); Platelet Count 230 K/uL (130-400); RDW Coefficient of Variation 13.7 % (11.5-14.5); Red Blood Count 4.05 M/uL (4.70-6.10); White Blood Count 7.46 K/ul (4.8-10.8)
[2022-09-01 06:56] LABS: Estimated Average Glucose 131 mg/dl; Hemoglobin A1C 6.2 % (4.5-5.6)
[2022-09-01 07:06] LABS: BUN Creatinine Ratio 18.3 (10-20); Calcium 8.2 mg/dl (8.5-10.1); Creatinine Clr Calc Pharmacy 181.1 ml/min; Est GFR (African American) 116.2 ml/min; Est GFR (Non-African American) 100.3 ml/min; Magnesium 2.1 mg/dl (1.7-2.4); Potassium 3.5 mmol/L (3.5-5.1)
[2022-09-01 07:08] LABS: INR 1.3 (0.9-1.1)
--- NOTE | 2022-09-01 08:21 | Hospitalist Progress Note ---
Date of Service September 01, 2022 Assessment & Plan (1) Septicemia: Plan: 52 yo WM who presented with acute sepsis syndrome d/t bacteremia UA not infected, Biofire NEGATIVE Lyme IgM negative Blood cx - 2/4 tubes reported positive for GPC in chains (likely strep species) Final is Group G Strep which is sensitive to Rocephin Remains on Rocephin (start date 08/28)-- end date 09/12 WBC wnl 7.67k Fevers resolving, last elevated temp 37.7 AM 08/31 (last fever 38.4C @4am on 08/29) Repeat Bcx NGTD after 48 hours ECHO w/o endocarditis, CAN NEGATIVE for vegetation US guided IV to be placed today, CM arranged IV abx for home deliver next week as patient staying on TIkosyn - see below, cardioversion for sunday (2) Left leg cellulitis: Plan: [place] to be driving bacteremia, improving CT w/o abscess/fluid collection Abx as above Continued elevation -- asked RN to prop on pillow today for additional elevation (3) Atrial fibrillation: Plan: Rate controlled Previously on flecainide, discontinued by cardiology remains on metoprolol 100mg daily, xarelto 20mg Cards consulted Tikosyn initiated 08/29 will need to be inpatient x3 days -- management per cards --> medication held without communication after evening dose 08/30 and discussed w/ cardiology and resumed last evening 09/01 ekg this am reviewed and acceptable by cards, going to continue x3 days which will be until Sunday and as inpatient already and arrangement for abx/d/c date moved back given delay/restart in tikosyn dosing planning to perform cardioversion on sunday Mag/K replacement as needed -- got 80meq yesterday KCl, K 3.4--> 3.5 and additional dosing for today to maintain levels and may need supplementation at d/c of note, prior lipid panel w/ TRG 214/chol 201/LDL 201 -- ideally should be on statin therapy, can f/u outpatient with PCP vs cards regarding such (4) Hypokalemia: Plan: stable today but continued repalcement given afib as above and on tikosyn monitor levels in AM (5) Hypertension: Plan: BP stable Continues on metoprolol, amlodipine Monitor (6) Morbid obesity: Plan: With JANN, on cpap at home May bring in own cpap for use Strongly recommend weight loss Plan continued inpatient stay on Tikosyn US guided IV to be placed today, CM following for home IV abx and rx provided 08/31 Admission and Anticipated Discharge Date Admission Date: August 27, 2022 Supervising Physician Co-Signing Physician Notes The patient was not seen by me. Chart reviewed. Case discussed with MARLIN Albert. Agree with assessment and plan Subjective patient evaluated this morning, was seen by Dr Santo and issues w/ Tikosyn missed dosing discussed and now planning to stay and just have cardioversion on Sunday. US guided IV to be placed for IV abx at home and CM arranging to have supplies delivered on sunday as he will get his dose here on Sunday prior to discharge. Leg improving, no fevers, WBC normalized. No chest pain/shortness of breath. Eating/drinking without issue, moving his bowels and states formed back up thankfully. Questions/concerns addressed at this time. Physical Exam Physical Exam: GENERAL: 52 yo male laying flat in bed upon entry, morbidly obese, NAD HEENT: head normocephalic, atraumatic, mmm, slight JVD Resp: CTA, diminished in the bases, no w/c, on room air 93% CV: irregularly irregular (rates 80-90s on telemetry), 1-2+ b/l LE edema, LLE>RLE with erythema/warmth c/w cellulitis, within markings, calves nontender, pulses palpable, no draining lesion, crusted scabs noted GI: +BS, obese, soft/NT EXTREMITIES: B/L LE 1-2+ pitting edema, L>R SKIN: Erythema and edema of LLE, multiple small scabs/excoriations Psych: AOx3, pleasant and cooperative Results & Data Results & Data ([facility]) Vital Signs (Past 12 Hours) Vital Signs Temp Pulse Pulse Resp BP BP Pulse Ox 09/01/22 07:38 36.9 C 83 20 184/72 H 93 09/01/22 07:11 86 09/01/22 03:56 37.2 C 93 H 20 132/74 93 08/31/22 22:00 85 08/31/22 23:50 36.8 C 65 18 136/82 96 O2 Del Method 09/01/22 07:38 Room Air 09/01/22 07:11 09/01/22 03:56 Room Air, CPAP 08/31/22 22:00 08/31/22 23:50 Room Air, CPAP PG Care Time/CCT Total # of Minutes Spent Total Time Spent with Patient: Total time spent is greater than 50% in coordination of care (as documented) at patient's floor/unit and/or counseling patient: Coding Level of Care Code 51251 SUB INP/OBS CARE 3/50MIN Diagnoses Septicemia A41.9 Left leg cellulitis L03.116 Atrial fibrillation I48.11 Atrial fibrillation type: longstanding persistent Hypokalemia E87.6 Hypertension I10 Hypertension type: primary hypertension Morbid obesity E66.01 (3) Atrial fibrillation Atrial fibrillation type: longstanding persistent Qualified Code(s): I48.11 - Longstanding persistent atrial fibrillation (5) Hypertension Hypertension type: primary hypertension Qualified Code(s): I10 - Essential (primary) hypertension
[2022-09-01] MEDS ORDERED: POTASSIUM CHLORIDE CRTAB 20 MEQ TABCR PO STA (08:22)
[2022-09-01] MEDS: cefTRIAXone SODIUM 2,000 MG in DEXTROSE 5% 50 ML IV SCH (09:21)
[2022-09-01] MEDS: amLODIPine BESYLATE 5 MG TAB PO SCH (09:22)
[2022-09-01] MEDS: DOFETILIDE 125 MCG CAPSULE PO SCH ×2 (12:01→22:16)
--- NOTE | 2022-09-01 12:32 | Cardiology Progress Note ---
Date of Service September 01, 2022 Assessment & Plan (1) Atrial fibrillation: Plan 1. Atrial fibrillation: He has had recurrence of his atrial fibrillation quickly after cardioversion on flecainide 200 mg twice a day. That has been discontinued for lack of efficacy. Although his dosing has been a little bit intermittent he is taking dofetilide 500 mg twice a day and has no side effects on it. He is demonstrated no QT prolongation and no proarrhythmia. I am going to continue this dose, which is the highest dose, due to his size and weight. I do have him scheduled for cardioversion on Sunday morning. I have discussed options with him which include ablation. At this point we would like to try Tikosyn and I am reluctant to use amiodarone. I am going to start Tikosyn. Admission and Anticipated Discharge Date Admission Date: August 27, 2022 Subjective He is feeling well today, no cardiovascular complaints, no palpitations. Physical Exam Physical Exam: Constitutional: Alert, cooperative and in no distress. HEENT: Unremarkable Neck: No jugular venous distention, carotid pulses are irregular but otherwise normal and equal bilaterally without bruits. Pulmonary: Clear to auscultation bilaterally. Cardiac: Irregular rhythm with no murmur, gallop or rub. Abdomen: Soft, nontender with normal bowel sounds. Extremities: No edema. Distal pulses intact. Neurologic: No focal findings. Skin: No rash, ecchymoses or petechiae. Results & Data ([facility]) Vital Signs (Past 12 Hours) Vital Signs Temp Pulse Pulse Resp BP Pulse Ox O2 Del Method 09/01/22 11:17 37.2 C 90 20 167/75 H 93 Room Air 09/01/22 07:38 36.9 C 83 20 184/72 H 93 Room Air 09/01/22 07:11 86 09/01/22 03:56 37.2 C 93 H 20 132/74 93 Room Air, CPAP Laboratory Results Coagulation 09/01/22 Range/Units 05:58 PT 14.0 H (9.0-12.0) Seconds CBC 09/01/22 Range/Units 05:58 WBC 7.46 (4.8-10.8) K/ul RBC 4.05 L (4.70-6.10) M/uL Hgb 12.4 L (14.0-18.0) g/dl Hct 36.7 L (42.0-52.0) % Plt Count 230 (130-400) K/uL Comprehensive Metabolic Panel 09/01/22 Range/Units 05:58 Sodium 137 (136-145) mmol/L Potassium 3.5 (3.5-5.1) mmol/L Chloride 104 (98-107) mmol/L Carbon Dioxide 29 (21-32) mmol/L BUN 15 (6-23) mg/dl Creatinine 0.82 (0.6-1.4) mg/dl Glucose 105 H (70-99(Fasting)) mg/dl Calcium 8.2 L (8.5-10.1) mg/dl Intake and Output 08/31/22 09/01/22 09/01/22 22:59 06:59 14:59 Intake Total 120 / 1540 300 / 1540 70 / 70 Balance 120 / 1540 300 / 1540 70 / 70 Intake: IV 70 / 70 cefTRIAXone SODIUM 2,000 mg In 70 / 70 Dextrose 5% 50 ml @ 100 mls/hr IV DAILY [facility] Rx#:[id number] Oral 120 / 1270 300 / 1270 Other: Weight 204.8 kg Weight Measurement Method [facility] Diagnostic Findings Telemetry: Atrial fibrillation with a controlled heart rate. PVCs but no complex ventricular arrhythmias. PG Care Time/CCT Total # of Minutes Spent Total Time Spent with Patient: Total time spent is greater than 50% in coordination of care (as documented) at patient's floor/unit and/or counseling patient: Coding Level of Care Code 88881 SUB INP/OBS CARE 2/35MIN Diagnoses Atrial fibrillation I48.19 Atrial fibrillation type: persistent (not longstanding) (1) Atrial fibrillation Atrial fibrillation type: persistent (not longstanding) Qualified Code(s): I48.19 - Other persistent atrial fibrillation
[2022-09-01] MEDS: RIVAROXABAN 20 MG TAB PO SCH (17:04)
[2022-09-01] MEDS ORDERED: POTASSIUM CHLORIDE CRTAB 20 MEQ TABCR PO ONE (20:00)
[2022-09-01] MEDS: METOPROLOL SUCC 50MG EXT REL TAB PO SCH (20:28)
[2022-09-02 06:11] LABS: BUN Creatinine Ratio 16.7 (10-20); Calcium 8.3 mg/dl (8.5-10.1); Creatinine Clr Calc Pharmacy 215.6 ml/min; Est GFR (African American) 122.6 ml/min; Est GFR (Non-African American) 105.8 ml/min; Magnesium 1.9 mg/dl (1.7-2.4); Potassium 4.1 mmol/L (3.5-5.1)
[2022-09-02] MEDS ORDERED: MAGNESIUM SULFATE / D5W 1 GM/100 ML BAG IV ONE (07:49)
--- NOTE | 2022-09-02 07:53 | Hospitalist Progress Note ---
Date of Service September 02, 2022 Assessment & Plan (1) Septicemia: Plan: 52 yo WM who presented with acute sepsis syndrome d/t bacteremia UA not infected, Biofire NEGATIVE Lyme IgM negative Blood cx - 2/4 tubes reported positive for GPC in chains (likely strep species) Final is Group G Strep which is sensitive to Rocephin Remains on Rocephin (start date 08/28)-- end date 09/12 WBC wnl 7.67k Fevers resolving, last elevated temp 37.7 AM 08/31 (last fever 38.4C @4am on 08/29) Repeat Bcx NGTD after 48 hours ECHO w/o endocarditis, CAN NEGATIVE for vegetation US guided IV to be placed today, CM arranged IV abx for home deliver next week as patient staying on TIkosyn - see below, cardioversion for sunday (2) Left leg cellulitis: Plan: [place] to be driving bacteremia, improving CT w/o abscess/fluid collection Abx as above Continued elevation Lasix 20mg IV x 1 today for edema to assist w/ healing. Additional PO Kcl ordered w/ lasix (3) Atrial fibrillation: Plan: Rate controlled Previously on flecainide, discontinued by cardiology remains on metoprolol 100mg daily, xarelto 20mg Cards consulted Tikosyn initiated 08/29 will need to be inpatient x3 days -- management per cards --> medication held without communication after evening dose 08/30 and discussed w/ cardiology and resumed last evening 09/01 ekg this am reviewed and acceptable by cards, going to continue x3 days which will be until Sunday and as inpatient already and arrangement for abx/d/c date moved back given delay/restart in tikosyn dosing planning to perform cardioversion on sunday. QTC 464 on AM EKG Mag/K replacement as needed -- got 80meq KCl on 08/31, K 3.4--> 3.5 and additional dosing evening 09/01 to maintain levels and may need supplementation at d/c K 4.1 on AM labs and initially no replacement but giving lasix and ordered additional PO dose, 1gm IV mag of note, prior lipid panel w/ TRG 214/chol 201/LDL 201 -- ideally should be on statin therapy, can f/u outpatient with PCP vs cards regarding such (4) Hypokalemia: Plan: stable today but continued replacement given afib as above and on tikosyn K 4.1 on am labs will monitor w/ diuresis (5) Hypertension: Plan: BP stable 158/70 Continues on metoprolol, amlodipine lasix x 1 as above Monitor (6) Morbid obesity: Plan: With JANN, on cpap at home May bring in own cpap for use Strongly recommend weight loss Plan continued inpatient stay planning cardioversion for Sunday to continue IV abx at d/c, already arranged and patient ordered US guided IV and abx to be dropped to home on Sunday. Planning d/ after dosing/cardioversion on Sunday Admission and Anticipated Discharge Date Admission Date: August 27, 2022 Supervising Physician Co-Signing Physician Notes The patient was not seen by me. The chart was reviewed. Case discussed with MARLIN Albert. Agree with assessment and plan Subjective eval this morning, doing wlel no pain to his LLE, discussed giving a low dose diuretic to help with swelling, agreeable. continued inpatient stay on Tikosyn and planned cardioversion for Sunday. Physical Exam Physical Exam: GENERAL: 52 yo male laying flat in bed upon entry, morbidly obese, NAD HEENT: head normocephalic, atraumatic, mmm, slight JVD Resp: CTA, diminished in the bases, no w/c, on room air 93% CV: irregularly irregular, 1-2+ b/l LE edema, LLE>RLE with erythema/warmth c/w cellulitis, within markings, calves nontender, pulses palpable, no draining lesion, crusted scabs noted increased pedal edema, sensation intact GI: +BS, obese, soft/NT EXTREMITIES: B/L LE 1-2+ pitting edema, L>R w/ cellulitis SKIN: Erythema and edema of LLE, multiple small scabs/excoriations Psych: AOx3, pleasant and cooperative Results & Data Results & Data ([place]) Vital Signs (Past 12 Hours) Vital Signs Temp Pulse Pulse Resp BP Pulse Ox O2 Del Method 09/02/22 07:40 82 09/02/22 07:20 36.9 C 55 L 20 158/70 H 93 Room Air 09/01/22 22:01 88 09/02/22 02:38 36.9 C 76 18 157/78 H 94 Room Air 09/01/22 22:51 37 C 107 H 18 157/81 H 94 CPAP 09/01/22 20:00 CPAP Laboratory Results 09/02/22 Range/Units 05:37 Sodium 136 (136-145) mmol/L Potassium 4.1 (3.5-5.1) mmol/L Chloride 104 (98-107) mmol/L Carbon Dioxide 27 (21-32) mmol/L Anion Gap 5 (3-11) BUN 12 (6-23) mg/dl Creatinine 0.72 (0.6-1.4) mg/dl Est Cr Clr Drug Dosing 215.6 ml/min Est GFR ( Amer) 122.6 ml/min Est GFR (Non-Af Amer) 105.8 ml/min BUN/Creatinine Ratio 16.7 (10-20) Glucose 112 H (70-99(Fasting)) mg/dl Calcium 8.3 L (8.5-10.1) mg/dl Magnesium 1.9 (1.7-2.4) mg/dl PG Care Time/CCT Total # of Minutes Spent Total Time Spent with Patient: Total time spent is greater than 50% in coordination of care (as documented) at patient's floor/unit and/or counseling patient: Coding Level of Care Code 01559 SUB INP/OBS CARE 2/35MIN Diagnoses Septicemia A41.9 Left leg cellulitis L03.116 Atrial fibrillation I48.11 Atrial fibrillation type: longstanding persistent Hypokalemia E87.6 Hypertension I10 Hypertension type: primary hypertension Morbid obesity E66.01 (3) Atrial fibrillation Atrial fibrillation type: longstanding persistent Qualified Code(s): I48.11 - Longstanding persistent atrial fibrillation (5) Hypertension Hypertension type: primary hypertension Qualified Code(s): I10 - Essential (primary) hypertension
[2022-09-02] MEDS: amLODIPine BESYLATE 5 MG TAB PO SCH (09:11)
--- NOTE | 2022-09-02 09:17 | Electrocardiogram Report ---
Test Reason : Blood Pressure : / mmHG Vent. Rate : 082 BPM Atrial Rate : 141 BPM P-R Int : 000 ms QRS Dur : 090 ms QT Int : 366 ms P-R-T Axes : 000 062 057 degrees QTc Int : 427 ms Poor data quality, interpretation may be adversely affected Atrial fibrillation Nonspecific ST and T wave abnormality Abnormal ECG When compared with ECG of 31-AUG-2022 06:13, No significant change Confirmed by Fran Santo ([id number] on 09/02/2022 9:16:37 AM Referred By: REFERRED SELF Confirmed By:Fran Santo
--- NOTE | 2022-09-02 09:18 | Electrocardiogram Report ---
Test Reason : Blood Pressure : / mmHG Vent. Rate : 087 BPM Atrial Rate : 326 BPM P-R Int : 000 ms QRS Dur : 086 ms QT Int : 356 ms P-R-T Axes : 000 051 044 degrees QTc Int : 428 ms Atrial fibrillation with premature ventricular or aberrantly conducted complexes Abnormal ECG When compared with ECG of 01-SEP-2022 01:25, (unconfirmed) Nonspecific T wave abnormality, improved in Lateral leads Confirmed by Fran Santo ([id number] on 09/02/2022 9:18:40 AM Referred By: REFERRED SELF Confirmed By:Fran Santo
[2022-09-02] MEDS: cefTRIAXone SODIUM 2,000 MG in DEXTROSE 5% 50 ML IV SCH (09:25)
--- NOTE | 2022-09-02 09:36 | Cardiology Progress Note ---
Date of Service September 02, 2022 Assessment & Plan (1) Atrial fibrillation: Plan 1. Atrial fibrillation: He has had recurrence of his atrial fibrillation quickly after cardioversion on flecainide 200 mg twice a day. That has been discontinued for lack of efficacy. Although his dosing has been a little bit intermittent he is taking dofetilide 500 mg twice a day and has no side effects on it. He is demonstrated no QT prolongation and no proarrhythmia. I am going to continue this dose, which is the highest dose, due to his size and weight. I do have him scheduled for cardioversion on Sunday morning. His dosing schedule for Tikosyn will be inconvenient for him at home, he would prefer 7 AM and 7 PM. I will try to change his dosing schedule over the weekend. Admission and Anticipated Discharge Date Admission Date: August 27, 2022 Subjective He is feeling well today, no complaints and no side effects on Tikosyn. No palpitations. Physical Exam Physical Exam: Constitutional: Alert, cooperative and in no distress. HEENT: Unremarkable Neck: No jugular venous distention, carotid pulses are irregular but otherwise normal and equal bilaterally without bruits. Pulmonary: Clear to auscultation bilaterally. Cardiac: Irregular rhythm with no murmur, gallop or rub. Abdomen: Soft, nontender with normal bowel sounds. Extremities: No edema. Distal pulses intact. Neurologic: No focal findings. Skin: No rash, ecchymoses or petechiae. Results & Data ([facility]) Vital Signs (Past 12 Hours) Vital Signs Temp Pulse Pulse Resp BP Pulse Ox O2 Del Method 09/02/22 07:40 82 09/02/22 07:20 36.9 C 55 L 20 158/70 H 93 Room Air 09/01/22 22:01 88 09/02/22 02:38 36.9 C 76 18 157/78 H 94 Room Air 09/01/22 22:51 37 C 107 H 18 157/81 H 94 CPAP Laboratory Results Comprehensive Metabolic Panel 09/02/22 Range/Units 05:37 Sodium 136 (136-145) mmol/L Potassium 4.1 (3.5-5.1) mmol/L Chloride 104 (98-107) mmol/L Carbon Dioxide 27 (21-32) mmol/L BUN 12 (6-23) mg/dl Creatinine 0.72 (0.6-1.4) mg/dl Glucose 112 H (70-99(Fasting)) mg/dl Calcium 8.3 L (8.5-10.1) mg/dl Intake and Output 09/01/22 09/02/22 09/02/22 22:59 06:59 14:59 Intake Total 730 / 1280 480 / 1280 Balance 730 / 1280 480 / 1280 Intake: Oral 730 / 1210 480 / 1210 Other: Weight 217.7 kg Weight Measurement Method Standing Scale Diagnostic Findings His electrocardiogram today shows atrial fibrillation with a controlled heart rate and no QT prolongation. Telemetry: Atrial fibrillation with a controlled heart rate, no significant arrhythmia. PG Care Time/CCT Total # of Minutes Spent Total Time Spent with Patient: Total time spent is greater than 50% in coordination of care (as documented) at patient's floor/unit and/or counseling patient: Coding Level of Care Code 12406 SUB INP/OBS CARE 2/35MIN Diagnoses Atrial fibrillation I48.19 Atrial fibrillation type: persistent (not longstanding) (1) Atrial fibrillation Atrial fibrillation type: persistent (not longstanding) Qualified Code(s): I48.19 - Other persistent atrial fibrillation
[2022-09-02] MEDS ORDERED: FUROSEMIDE INJ 20 MG/2 ML VIAL IV ONE (10:49)
[2022-09-02] MEDS: DOFETILIDE 125 MCG CAPSULE PO SCH ×2 (10:49→20:27)
[2022-09-02] MEDS ORDERED: POTASSIUM CHLORIDE CRTAB 20 MEQ TABCR PO STA (10:50)
--- NOTE | 2022-09-02 14:29 | Electrocardiogram Report ---
Test Reason : Blood Pressure : / mmHG Vent. Rate : 090 BPM Atrial Rate : 326 BPM P-R Int : 000 ms QRS Dur : 086 ms QT Int : 380 ms P-R-T Axes : 000 047 043 degrees QTc Int : 464 ms Atrial fibrillation with premature ventricular or aberrantly conducted complexes Abnormal ECG When compared with ECG of 01-SEP-2022 06:42, (unconfirmed) No significant change was found Confirmed by Negro Gramajo [id number] on 09/02/2022 2:29:31 PM Referred By: REFERRED SELF Confirmed By:Negro Gramajo
[2022-09-02] MEDS: RIVAROXABAN 20 MG TAB PO SCH (16:42)
[2022-09-02] MEDS: METOPROLOL SUCC 50MG EXT REL TAB PO SCH (20:27)
[2022-09-02] MEDS ORDERED: [UNRECOGNIZED DRUG - OTHER] PO ONE (22:00)
[2022-09-03] MEDS: cefTRIAXone SODIUM 2,000 MG in DEXTROSE 5% 50 ML IV SCH (07:51)
[2022-09-03] MEDS: DOFETILIDE 125 MCG CAPSULE PO SCH ×2 (07:52→18:23)
[2022-09-03] MEDS: amLODIPine BESYLATE 5 MG TAB PO SCH (07:52)
--- NOTE | 2022-09-03 07:55 | Hospitalist Progress Note ---
Date of Service September 03, 2022 Assessment & Plan (1) Septicemia: Plan: 52 yo WM who presented with acute sepsis syndrome d/t bacteremia UA not infected, Biofire NEGATIVE Lyme IgM negative Blood cx - 2/4 tubes reported positive for GPC in chains (likely strep species) Final is Group G Strep which is sensitive to Rocephin Remains on Rocephin (start date 08/28)-- end date 09/12 WBC wnl 7.67k Fevers resolving, last elevated temp 37.7 AM 08/31 (last fever 38.4C @4am on 08/29) Repeat Bcx NGTD after 48 hours ECHO w/o endocarditis, CAN NEGATIVE for vegetation US guided IV placed this morning - arranged IV abx for home deliver next week as patient staying on TIkosyn - see below, cardioversion for tomorrow, NPO at midnight tonight (2) Left leg cellulitis: Plan: [place] to be driving bacteremia, improving CT w/o abscess/fluid collection Abx as above Continued elevation Lasix 20mg IV x 1 09/02 for edema to assist w/ healing. Additional PO Kcl ordered w/ lasix Repeated for 09/03 and may benefit from several days PO lasix at d/c given stable kidney function w/ use (3) Atrial fibrillation: Plan: Rate controlled Previously on flecainide, discontinued by cardiology remains on metoprolol 100mg daily, Xarelto 20mg Cards consulted Tikosyn initiated 08/29 will need to be inpatient x3 days -- management per cards --> medication held without communication after evening dose 08/30 and discussed w/ cardiology and resumed last evening 09/01 ekg this am reviewed and acceptable by cards, going to continue x3 days which will be until Sunday and as inpatient already and arrangement for abx/d/c date moved back given delay/restart in tikosyn dosing planning to perform cardioversion on sunday. QTC 433 on AM EKG, noted septal infarct however no symptoms/change and possible lead placement --> will ask RN to repeat EKG Mag/K replacement as needed -- Mag for 1.9, Kcl replacement w lasix but K much improved and stable -- consider PO kcl supp if going to send couple days lasix for swelling of note, prior lipid panel w/ TRG 214/chol 201/LDL 201 --> ideally should be on statin therapy, can f/u outpatient w/ cards/PCP regarding but could consider starting prior to d/c as well -- discuss w/ cards prior vs repeat lipids outpatient/start pending results (4) Hypokalemia: Plan: stable today but continued replacement given afib as above and on tikosyn K 3.8 on am labs will monitor w/ diuresis/supplementation (5) Hypertension: Plan: BP stable 129/78 Continues on metoprolol, amlodipine lasix repeated for today, consider low dose at d/c for edema/volume management as well monitor (6) Morbid obesity: Plan: With JANN, on cpap at home May bring in own cpap for use Strongly recommend weight loss Plan continued inpatient stay planning cardioversion for Sunday, will make NPO at midnight tonight US guided IV placed today, CM has rx for abx and to be delivered to patient on Sunday. Asked cards to send tikosyn rx today and would have CM check w/ pharmacy to make sure no issues w/ fill prior to discharge Hoping to discharge after abx/cardioversion tomorrow consider continue low dose diuretic as well Admission and Anticipated Discharge Date Admission Date: August 27, 2022 Supervising Physician Co-Signing Physician Notes The patient was not seen by me. The chart was reviewed. Case discussed with MARLIN Albert. Agree with assessment and plan Subjective eval this morning, US guided IV placed this morning. Inquiring about rx for Tikosyn and if going to have issues w/ pharmacy [place] as he had previously with flecainide at [facility]. Will message Dr Santo about sending today and will have CM check once sent to make sure no issue prior to discharge. No fever/chills. Reports urine much surveillance analyst, clear/yellow and increased urination since lasix yesterday. Discussed decreased swelling and will repeat while inpatient. Patient may benefit from couple days of PO lasix at d/c to help with swelling as well. No fever/chills. Physical Exam Physical Exam: GENERAL: 52 yo male laying flat in bed upon entry, morbidly obese, NAD HEENT: head normocephalic, atraumatic, mmm, slight JVD Resp: CTA, diminished in the bases, no w/c, on room air 95% CV: irregularly irregular, 1-2+ b/l LE edema, slightly improved since lasix, LLE>RLE with erythema/warmth c/w cellulitis, within markings, calves nontender, pulses palpable, no draining lesion, crusted scabs noted increased pedal edema, sensation intact GI: +BS, obese, soft/NT EXTREMITIES: B/L LE 1-2+ pitting edema, L>R w/ cellulitis SKIN: Erythema and edema of LLE, multiple small scabs/excoriations Psych: AOx3, pleasant and cooperative Results & Data Results & Data ([facility]) Vital Signs (Past 12 Hours) Vital Signs Temp Pulse Pulse Resp BP Pulse Ox O2 Del Method 09/03/22 07:47 36.8 C 97 H 20 129/78 95 Room Air 09/02/22 22:06 90 09/03/22 03:20 37.1 C 56 L 18 123/78 94 Room Air 09/02/22 22:21 37 C 95 H 18 146/84 H 94 CPAP 09/02/22 19:00 37.2 C 99 H 18 144/82 H 94 Room Air Laboratory Results 09/03/22 Range/Units 06:16 Sodium 137 (136-145) mmol/L Potassium 3.8 (3.5-5.1) mmol/L Chloride 103 (98-107) mmol/L Carbon Dioxide 29 (21-32) mmol/L Anion Gap 5 (3-11) BUN 9 (6-23) mg/dl Creatinine 0.71 (0.6-1.4) mg/dl Est Cr Clr Drug Dosing 215.8 ml/min Est GFR ( Amer) 123.3 ml/min Est GFR (Non-Af Amer) 106.4 ml/min BUN/Creatinine Ratio 12.7 (10-20) Glucose 101 H (70-99(Fasting)) mg/dl Calcium 8.3 L (8.5-10.1) mg/dl Magnesium 1.9 (1.7-2.4) mg/dl PG Care Time/CCT Total # of Minutes Spent Total Time Spent with Patient: Total time spent is greater than 50% in coordination of care (as documented) at patient's floor/unit and/or counseling patient: Coding Level of Care Code 19083 SUB INP/OBS CARE 2/35MIN Diagnoses Septicemia A41.9 Left leg cellulitis L03.116 Atrial fibrillation I48.11 Atrial fibrillation type: longstanding persistent Hypokalemia E87.6 Hypertension I10 Hypertension type: primary hypertension Morbid obesity E66.01 (3) Atrial fibrillation Atrial fibrillation type: longstanding persistent Qualified Code(s): I48.11 - Longstanding persistent atrial fibrillation (5) Hypertension Hypertension type: primary hypertension Qualified Code(s): I10 - Essential (primary) hypertension
[2022-09-03 08:55] LABS: BUN Creatinine Ratio 12.7 (10-20); Calcium 8.3 mg/dl (8.5-10.1); Creatinine Clr Calc Pharmacy 215.8 ml/min; Est GFR (African American) 123.3 ml/min; Est GFR (Non-African American) 106.4 ml/min; Magnesium 1.9 mg/dl (1.7-2.4); Potassium 3.8 mmol/L (3.5-5.1)
[2022-09-03] MEDS ORDERED: FUROSEMIDE INJ 20 MG/2 ML VIAL IV ONE ×2 (09:01→17:00)
[2022-09-03] MEDS ORDERED: MAGNESIUM SULFATE / D5W 1 GM/100 ML BAG IV ONE (09:01)
[2022-09-03] MEDS ORDERED: POTASSIUM CHLORIDE CRTAB 20 MEQ TABCR PO STA (09:01)
--- NOTE | 2022-09-03 10:54 | Electrocardiogram Report ---
Test Reason : Blood Pressure : / mmHG Vent. Rate : 089 BPM Atrial Rate : 153 BPM P-R Int : 000 ms QRS Dur : 096 ms QT Int : 356 ms P-R-T Axes : 000 053 026 degrees QTc Int : 433 ms Atrial fibrillation Septal infarct , age undetermined vs lead pplacement Nonspecific T wave abnormality Abnormal ECG When compared with ECG of 02-SEP-2022 05:22, Septal infarct is now Present Confirmed by Negro Gramajo ([id number]) on 09/03/2022 10:54:14 AM Referred By: REFERRED SELF Confirmed By:Negro Gramajo
[2022-09-03] MEDS ORDERED: POTASSIUM CHLORIDE CRTAB 20 MEQ TABCR PO ONE ×2 (17:00)
[2022-09-03] MEDS: RIVAROXABAN 20 MG TAB PO SCH (17:02)
[2022-09-03] MEDS: METOPROLOL SUCC 50MG EXT REL TAB PO SCH (21:27)
[2022-09-04] MEDS: DOFETILIDE 125 MCG CAPSULE PO SCH (05:47)
[2022-09-04] MEDS: amLODIPine BESYLATE 5 MG TAB PO SCH (09:08)
[2022-09-04] MEDS: cefTRIAXone SODIUM 2,000 MG in DEXTROSE 5% 50 ML IV SCH (09:09)
[2022-09-04 09:26] LABS: BUN Creatinine Ratio 19.4 (10-20); Calcium 8.3 mg/dl (8.5-10.1); Creatinine Clr Calc Pharmacy 211.4 ml/min; Est GFR (African American) 122.6 ml/min; Est GFR (Non-African American) 105.8 ml/min; Potassium 4.1 mmol/L (3.5-5.1)
--- NOTE | 2022-09-04 10:21 | Discharge Summary ---
Date of Service September 04, 2022 Admission HPI Per Admitting Provider Fadi Lovell is a 52 yo WM with a pmhx of afib s/p cardioversion on 08/15/22 but felt himself go back in afib 48 hours later who presents to the ER today c/o fever, racing heart, and shortness of breath. He developed a fever around 2200 on 08/26/22. He denies cough, congestion, ill contacts, rash, urinary symptoms, or GI symptoms. He denies tick bites in the fall. He decided to come to the ER for further evaluation around 0330 this AM. His work up here demonstrated a fever of 39.1C and tachycardia. He was found to have an elevated wbc count with left shift and a positive lactate of 2.3 and elevated procalcitonin of 1.24. A urinalysis is still pending at this time. He underwent CTs of the chest, abdomen, and pelvis without acute findings. He was medicated with 3L of NSS in the ER and a dose of empiric Vancomycin and Cefepime. He denies having a history of MRSA. Patient was referred to the hospitalist service for admission. Currently, he is comfortable in ER litter, has no complaints, denies shortness of breath. Admission Exam Per Admitting Provider GENERAL: 52 yo WM morbidly obese, awake, alert, oriented x4, nontoxic, NAD. LUNGS: Clear to auscultation bilaterally. Nonlabored. CARDIOVASCULAR: Irregular rhythm with variable rate 90-100s ABDOMEN: Soft, obese, nontender. +BS throughout. EXTREMITIES: B/L LE dependent edema. Non-tender. Peripheral pulses +2/4. SKIN: Warm, dry, intact. No rashes or lesions. Principal Diagnosis Bacteremia due to cellulitis Atrial Fibrillation Discharge Exam Constitutional WD/WN, vitals as above Neck trachea midline, no thyromegaly Respiratory normal respiratory effort, lungs clear to auscultation Cardiovascular Rate/Rhythm: regular rate and regular rhythm Extremities: + edema; no calf tenderness Left with cellulitis and increased edema compared to right Gastrointestinal (Abdomen) normal bowel sounds, soft, nontender, no hepatosplenomegaly Obese Skin Cellulitis left lower extremity Multiple small excoriations/scabbing Psychiatric A+Ox3, euthymic affect Discharge Data Allergies Allergy/AdvReac Type Severity Reaction Status Date / Time No Known Drug Allergies Allergy Unknown Verified 08/27/22 07:14 Consultations 08/27/22 05:26 ED Decision to Admit Stat 08/29/22 08:56 Consult Cardiology Routine 08/29/22 11:27 Consult Infectious Diseases Routine Procedures Performed Operation Date: 09/04/22 07:30 <No data on this case meets the specified criteria> Ordered Studies 08/27/22 06:35 CT Abd and Pelvis [CT abd pelvis wo con] Stat CT chest diagnostic wo con Stat 08/29/22 14:37 CT leg [CT tib/fib LT w con] Urgent Hospital Course (1) Septicemia: 52 yo WM who presented with acute sepsis syndrome d/t bacteremia UA not infected, Biofire NEGATIVE Lyme IgM negative Blood cx - Final is Group G Strep which is sensitive to Rocephin Remains on Rocephin (start date 08/28)-- end date 09/12 WBC wnl Fevers resolving, last elevated temp 37.7 AM 08/31 (last fever 38.4C @4am on 08/29) Repeat Bcx NGTD after 48 hours ECHO w/o endocarditis, CAN NEGATIVE for vegetation US guided IV placed - arranged IV abx for home deliver next week as patient staying on TIkosyn - patient was to have cardioversion today but converted to NSR and cardioversion was cancelled Tikosyn was sent into patient's pharmacy and will be ready for picker and sorter load and unload at noon Patient has [facility] set up at home for continued daily Rocephin to be administered. (2) Left leg cellulitis: [place] to be driving bacteremia, improving CT w/o abscess/fluid collection Abx as above Continued elevation Lasix 20mg IV x 1 09/02 for edema to assist w/ healing. Additional PO Kcl ordered w/ lasix Repeated for 09/03 Will send patient home on Lasix 20mg one daily with Potassium Chloride 20meq daily Patient to follow up with PCP in 1-2 weeks (3) Atrial fibrillation: Rate controlled Previously on flecainide, discontinued by cardiology remains on metoprolol 100mg daily, Xarelto 20mg Cards consulted Tikosyn initiated 08/29 will need to be inpatient x3 days -- management per cards --> medication held without communication after evening dose 08/30 and discussed w/ cardiology and resumed last evening 09/01 ekg this am reviewed and acceptable by cards, going to continue x3 days which will be until Sunday and as inpatient already and arrangement for abx/d/c date moved back given delay/restart in tikosyn dosing planning to perform cardioversion today BUT patient converted to NSR and the cardioversion was cancelled of note, prior lipid panel w/ TRG 214/chol 201/LDL 201 --> ideally should be on statin therapy, can f/u outpatient w/ cards/PCP regarding but could consider starting prior to d/c as well -- discuss w/ cards prior vs repeat lipids outpatient/start pending results (4) Hypokalemia: stable today but continued replacement given afib as above and on tikosyn K 4.1 on am labs will monitor w/ diuresis/supplementation Patient aware to limit sodium in diet, elevate legs and will send home with Lasi x 20mg and KCL 20meq and to follow up with PCP in 1-2 weeks (5) Hypertension: BP stable 132/80 Continues on metoprolol, amlodipine Will send home on Lasix 20mg and KCL 20meq daily for a few days and then to follow up with PCP (6) Morbid obesity: With JANN, on cpap at home May bring in own cpap for use Strongly recommend weight loss Plan Cardioversion was cancelled for today (patient converted to NSR) Plan to discharge home today US guided IV placed today, CM has rx for abx and to be delivered to patient on Sunday. Asked cards to send tikosyn rx today and would have CM check w/ pharmacy to make sure no issues w/ fill prior to discharge (pharmacy will have rx ready for picker and sorter load and unload at noon today) Home Health Attestation I certify that this patient is under my care and that I, or a physicians assistant coach working with me, had a face to-face encounter that meets the home health [id number] encounter requirements with this patient. The encounter with the patient was in whole, or in part, for the following medical condition, which is the primary reason for home health care (list medical condition): I certify that, based on my findings, the following services are medically necessary home health services: My clinical findings support the need for the above services because: Further, I certify that my clinical findings support that this patient is homebound (i.e. absences from home require considerable and taxing effort and are for medical reasons or scientologist services or infrequently or of short duration when for other reasons) because: Certification for Home Health Services: Based on the above findings, I certify that this patient is confined to the home and needs intermittent detention care, physical therapy and/or speech therapy or continues to need occupational therapy. The patient is under my care, and I have initiated the establishment of the plan of care. This patient will be followed by a physician who will periodically review the plan of care. Total Time Total Time Spent Total Time Spent (In Minutes): 45 Discharge Plan Discharge Items Patient Disposition: Home - Home Health Services Reason For Visit: sepsis Discharge Diagnosis: Bacteremia A Fibrillation Activity: Resume your previous activity Weightbearing: Full weightbearing Non-emergency contact: Primary Care Provider and Deputy Probation Officer Call non-emergency contact if: you have any medication questions, your symptoms worsen, you have a fever and your wound has increased redness Follow-up/Referrals: Hina Cerda PA-C [Primary Care Provider] - 09/13/22 11:00 am Fran Santo MD [Physician] - Diet: Heart Healthy and Low Sodium (2gm) Ambulatory Orders: Complete Blood Count with Diff (Routine) Timeframe: 1 Week Location: Determined by Patient Ordered By: Gertrude Cotton Comprehensive Metabolic Panel (Routine) Timeframe: 1 Week Location: Determined by Patient Ordered By: Gertrude Cotton Add Attending Provider Instructions: You were admitted and found to have a fever and + blood infection due to cellulitis (infection in your skin - Left leg) and you were treated with IV antibiotics and also were evaluated by an infectious disease doctor and it was determined that you will need daily IV antibiotics until 09/12/22. You will need to have a CBC and CMP blood work drawn in 1 week. You also were seen by cardiology and it was planned for you to have a cardioversion today but you converted back into normal sinus rhythm and the cardioversion was cancelled. Dr Santo prescribed Tikosyn for you. You were treated with IV Lasix and also Potassium. You will be sent home with a few more days of the lasix and potassium . You should follow up with your family doctor in 1-2 weeks. Also should follow up with your reading intervention teacher. Pending Studies at Discharge: No Stand-Alone Forms: My [facility], Smoking Cessation Medications and DC Order Prescriptions: New dofetilide 500 mcg capsule 500 mcg PO Q12H Qty: 60 3RF dofetilide [Tikosyn] 125 mcg Capsule 500 mcg PO Q12H Qty: 1 0RF Continued amlodipine 5 mg tablet 10 mg PO QAM Qty: 180 3RF Rx Instructions: 5 mg PO daily however may take addtional dose 5mg if BP is high; metoprolol succinate 100 mg tablet extended release 24 hr 100 mg PO PM Qty: 90 3RF Xarelto 20 mg tablet 20 mg PO PM Qty: 90 3RF Rx Instructions: must administer with evening meal multivitamin [Multiple Vitamins] Tablet 1 tab PO QPM Discontinued flecainide 100 mg tablet 200 mg PO Q12H Qty: 120 11RF Discharge Orders: Discharge Order (Routine); Ordered 09/04/22 Ordered By: Gertrude Umaña/Other Patient Handouts: Prediabetes, 5 Steps for Eating Healthier Admission Data Admit Date/Time: 08/27/22 09:46 Attending Provider: Rakesh Wade Admit Provider: Caden Obrien Primary Care Provider: Hina Cerda Other Providers: Cristian Meyers ; Tereso Lei ; Janna Green ; Jim Borja ; Joanne Saucedo ; Timi Duran ; Maia Yao ; Jennifer Virgen ; Kailee Austin ; Prachi Meredith ; Irene Naranjo Coding Level of Care Code 13865 INP/OBS DISCH >30 MIN Diagnoses Septicemia A41.9 Left leg cellulitis L03.116 Atrial fibrillation I48.11 Atrial fibrillation type: longstanding persistent Hypokalemia E87.6 Hypertension I10 Hypertension type: primary hypertension Morbid obesity E66.01 Time Spent (min) 45
--- NOTE | 2022-09-04 12:14 | Cardiology Progress Note ---
Date of Service September 04, 2022 Assessment & Plan (1) Atrial fibrillation: Plan 1. Atrial fibrillation: He has converted spontaneously to sinus rhythm on dofetilide, which is an excellent result. This bodes well for controlling his arrhythmia in the future. I would recommend discharging him on the same dose. I will arrange follow-up in office within 1 month. Admission and Anticipated Discharge Date Admission Date: August 27, 2022 Subjective He is feeling very well today, he is aware that he has converted to sinus rhythm spontaneously. He feels well otherwise as well and is anxious to go home. Physical Exam Physical Exam: Constitutional: Alert, cooperative and in no distress. HEENT: Unremarkable Neck: No jugular venous distention, carotid pulses are normal and equal bilaterally without bruits. Pulmonary: Clear to auscultation bilaterally. Cardiac: Regular rhythm with no murmur, gallop or rub. Abdomen: Soft, nontender with normal bowel sounds. Extremities: +2 bilateral pretibial edema. Neurologic: No focal findings. Skin: Bilateral rash on lower extremities, no ecchymoses or petechiae. Results & Data ([facility]) Vital Signs (Past 12 Hours) Vital Signs Temp Pulse Pulse Resp BP BP Pulse Ox 09/04/22 11:54 36.5 C 70 18 135/83 123/69 94 09/04/22 11:17 36.5 C 70 18 135/83 94 09/04/22 09:00 09/04/22 07:35 37.1 C 65 18 132/80 94 09/04/22 07:25 63 09/04/22 02:52 37 C 65 18 123/69 95 O2 Del Method 09/04/22 11:54 09/04/22 11:17 Room Air 09/04/22 09:00 Room Air 09/04/22 07:35 Room Air 09/04/22 07:25 09/04/22 02:52 CPAP Laboratory Results Cardiac Enzymes 09/04/22 Range/Units 08:40 B-Natriuretic Peptide 135 H (0-100) pg/ml Coagulation 09/04/22 Range/Units 08:40 B-Natriuretic Peptide 135 H (0-100) pg/ml Comprehensive Metabolic Panel 09/04/22 Range/Units 08:40 Sodium 136 (136-145) mmol/L Potassium 4.1 (3.5-5.1) mmol/L Chloride 104 (98-107) mmol/L Carbon Dioxide 27 (21-32) mmol/L BUN 14 (6-23) mg/dl Creatinine 0.72 (0.6-1.4) mg/dl Glucose 97 (70-99(Fasting)) mg/dl Calcium 8.3 L (8.5-10.1) mg/dl Intake and Output 09/03/22 09/04/22 09/04/22 22:59 06:59 14:59 Intake Total 560 / 1335 250 / 1335 70 / 70 Balance 560 / 1335 250 / 1335 70 / 70 Intake: IV 70 / 70 cefTRIAXone SODIUM 2,000 mg In 70 / 70 Dextrose 5% 50 ml @ 100 mls/hr IV DAILY [facility] Rx#:[id number] Oral 560 / 1165 250 / 1165 Other: Weight 212.6 kg 212.6 kg Weight Measurement Method Standing Scale Patient Weight 09/05/22 06:59 Weight 212.6 kg Diagnostic Findings Twelve-lead electrocardiogram this morning: Sinus rhythm, QT interval is normal. Telemetry: Atrial fibrillation until around 8:00 last evening and sinus rhythm since. PG Care Time/CCT Total # of Minutes Spent Total Time Spent with Patient: Total time spent is greater than 50% in coordination of care (as documented) at patient's floor/unit and/or counseling patient: Coding Level of Care Code 20803 SUB INP/OBS CARE 2/35MIN Diagnoses Atrial fibrillation I48.19 Atrial fibrillation type: persistent (not longstanding) (1) Atrial fibrillation Atrial fibrillation type: persistent (not longstanding) Qualified Code(s): I48.19 - Other persistent atrial fibrillation
--- NOTE | 2022-09-05 05:53 | Electrocardiogram Report ---
Test Reason : Blood Pressure : / mmHG Vent. Rate : 064 BPM Atrial Rate : 064 BPM P-R Int : 200 ms QRS Dur : 096 ms QT Int : 442 ms P-R-T Axes : 085 059 055 degrees QTc Int : 455 ms Normal sinus rhythm Anterior infarct (cited on or before 03-SEP-2022) Abnormal ECG When compared with ECG of 03-SEP-2022 04:43, Sinus rhythm has replaced Atrial fibrillation Questionable change in initial forces of Anteroseptal leads Confirmed by Daniel Chatterjee ([id number]) on 09/05/2022 5:53:03 AM Referred By: REFERRED SELF Confirmed By:Daniel Chatterjee
== END 2022-09-04 12:13 | disposition home health service (06) | DRG 872 ==
LOC: ED 03:39 → EDINP 09:46 → SUATTDRO 09:46 → 2N 11:28